=== PATIENT | female | born 1995 ===

== ENCOUNTER 2020-01-14 14:28 | Emergency (ER) | payer MEDICAID, SELFPAY ==
[2020-01-14 16:46] VITALS: BP 142/75; PULSE 89; RESP 16; TEMP 36.7; O2SAT 100; BMI 59.8
--- NOTE | 2020-01-14 18:36 | PC.NURSE ---
2 attempts for iv access teddy jensen rn in to attempt access.
[2020-01-14 19:00] LABS: Basophils Percent Auto 0.3 % (0-2); Imm Gran Abs Auto 0.02 X10*3/uL (0.00-0.03); Imm Gran Pct Auto 0.3 % (0.0-0.4); Red Cell Distribution Width 15.3 % (11.0-16.0); SCAN SMEAR FLAG 1
[2020-01-14 19:02] LABS: Eosinophils Absolute Auto 0.1 X10*3/uL (0.0-0.4); Eosinophils Percent Auto 0.8 % (0-4); Hematocrit 37.7 % (37-47); Lymphocytes Absolute Auto 1.9 X10*3/uL (1.2-4.9); Lymphocytes Percent Auto 26.1 % (20-40); Mean Corpuscular HGB Conc 31.8 g/dl (31.0-35.0); Mean Corpuscular Hemoglobin 26.7 pg (27.0-33.0); Monocytes Absolute Auto 0.8 X10*3/uL (0.1-1.2); Monocytes Percent Auto 10.5 % (2-11); Neutrophils Absolute Auto 4.5 X10*3/uL (2.0-8.3); Platelet Count 131 X10*3/uL (160-400); Red Blood Count 4.49 X10*6/uL (4.20-5.50); White Blood Count 7.2 X10*3/uL (4.8-10.8)
[2020-01-14 19:08] LABS: PLT ABN DIST 1
[2020-01-14 19:09] LABS: MANUAL DIFF FLAG NO
[2020-01-14] MEDS: 0.9 % Sodium Chloride 1,000 ML 999 ML IVCONT (19:28)
[2020-01-14] MEDS: ondansetron HCL 4 MG/2 ML VIAL IVPUSH (19:29)
--- NOTE | 2020-01-14 19:30 | PC.NURSE ---
MEDICATED PER MAY . PT RESTING IN BED NO SIGN OF DISTRESS.
[2020-01-14 19:32] VITALS: BP 142/75; PULSE 89; RESP 16; TEMP 36.7; O2SAT 100
--- NOTE | 2020-01-14 19:41 | ED_ITS ---
HPI - Female Genitourinary General Chief complaint: Urogenital-Female Stated complaint: Vaginal bleeding and discomfort Time Seen by Provider: 01/14/20 17:58 Source: patient Mode of arrival: ambulatory Limitations: language barrier ( Kiswahili) History of Present Illness HPI Narrative: 24-year-old female presents with right lower abdominal pain, 3 days of vaginal bleeding, and tested positive for yesterday. Her last normal menstrual cycle was November 26, and she stated that the pain started few weeks ago prior to her positive test. She does not describe any chest pain or pressure, palpitations, shortness of breath, abdominal distention, dysuria, risk for sexually transmitted infection, physical assault, sexual assault or trauma. MD elicited complaint: possible miscarriage Onset (ago): day(s) (3) Location of symptoms: RLQ Severity: moderate Female Urogenital Radiation: Non-Radiating Severity scale (1-10): 8 Quality of pain: cramping and sharp Consistency: intermittent Vaginal discharge: none Vaginal bleeding: moderate Relieving factors: none Associated symptoms: denies other symptoms Treatment prior to arrival: none Sexual activity: Yes Patient : Yes Possible : at home test positive Date of Last Menstrual Period: 11/27/19 Related Data : 1 Para: 0 Total number of abortions (spontaneous and elective): 0 Allergies Allergy/AdvReac Type Severity Reaction Status Date / Time No Known Allergies Allergy Verified 01/14/20 17:58 Review of Systems Review of Systems: Constitutional: No Fever, No Chills ENT/Mouth: No sore throat, No Rhinorrhea Eyes: No Eye Pain, No Redness Cardiovascular: No Chest Pain, No SOB Respiratory: No Cough, No Sputum, No Wheezing Gastrointestinal: positive Nausea, No Vomiting, No Diarrhea, positive abdominal pain, Genitourinary: Positive , positive irregular bleeding, No Dysuria, No Urinary Frequency, positive pelvic pain Musculoskeletal: No Myalgias Skin: No rash Neuro: No Weakness, No Headache Psych: No Anxiety/Panic, No Depression Heme/Lymph: No bruising, No Lymphadenopathy Endocrine: No Polyuria, No Polydipsia Yes all other systems are reviewed and are negative PMFSH Past Medical History Medical History Cyst (solitary) of breast : 1 Para: 0 Total number of abortions (spontaneous and elective): 0 Date of Last Menstrual Period: 11/27/19 Social History Social History Alcohol intake: unknown Smoking Status: Unknown if ever smoked Use of substances other than those prescribed or required for medical reasons: Unknown Advance Directives: No Advance Directives Information Provided: Yes Physical Exam Vital Signs: Vital Signs: Vital Signs Temp Pulse Resp BP Pulse Ox 01/15/20 00:00 103 H 15 111/78 96 01/14/20 20:43 108 H 18 128/78 100 01/14/20 19:32 98.0 F 89 16 142/75 H 100 01/14/20 16:46 98.0 F 89 16 142/75 H 100 Body Mass Index 59.8 Appearance: Alert. Oriented X3. No acute distress. Head: Normal external exam. Normocephalic. Atraumatic. No Gonsalez signs noted. No raccoon eyes noted Eyes: PERRLA. EOMI. Conjunctiva and sclera normal. Eyelids normal. ENT: TM's Normal. Pharynx normal. Uvula midline. Moist mucous membranes. No trismus noted. No drooling noted. No muffled voice noted. Neck: Normal inspection. Neck supple. No adenopathy. Thyroid Normal. No meningeal signs. No neck mass noted. CVS: Normal heart rate and rhythm. Heart sound normal. No murmurs noted. Pulses normal throughout. Respiratory: No respiratory distress. Painless inspiration. Breath sounds normal. No wheezes/rales/rhonchi noted. Chest nontender. No accessory muscle usage noted or decreased air movement noted. Abdomen: Soft and nontender. Bowel sounds normal in all 4 quadrants. No distention noted. No organomegaly noted. No visible injury noted. Back: No CVA tenderness. Full range of motion noted. Skin: Skin warm and dry. Normal skin color. Normal skin turgor. No rashes/lesions/lacerations noted. Extremities: No lower extremity edema. Extremities exhibit normal range of motion. Extremities nontender. Neuro: No motor deficit. No sensory deficit. Reflexes normal. Course Course Course Narrative: Patient presents with positive test, adnexal pain, and vaginal bleeding. High suspicion for ectopic . Detailed discussion with patient regarding plan, rn international utilized for all correspondence. RN updated this REGISTERED NURSE POST PARTUM that labs have been unable to be obtained. Reevaluation(s) Reevaluation #1: labs are unobtainable. Multiple attempts with RN and this REGISTERED NURSE POST PARTUM with ultrasound guide. Time: 20:55 Reevaluation #2: lab called for urine test. after multiple attempts, and detailed discussion with patient regarding gravity of her situation, patient agrees to allow blood draw. This REGISTERED NURSE POST PARTUM placed 22 gauge to the left AC and was able to obtain type and screen On 2nd attempt. Time: 21:36 Reevaluation #3: Dr Butler bedside. Time: 00:00 Additional Reevaluation(s): at 1:[address] Butler assessment has been completed. Plan is for patient to use methotrexate. Consent in place. Discharge instructions will be transcribed to Kiswahili. Patient will be discharged home with close follow-up. Patient verbalized understanding of and agrees to plan of care to discharge home. rn international utilized for all correspondence. Google translate utilized for discharge instructions. Consultations Consultation #1: Dr. Butler Time: 00:52 MDM - Female Genitourinary MDM Narrative Medical decision making narrative: ectopic , molar , adnexal mass, ovarian cyst, Differential Diagnosis Differential diagnosis: Likely urinary tract infection, cervicitis, ruptured ovarian cyst and dysmenorrhea Medical Records Attestation: I reviewed the patient's medical records. Lab Data Attestation: I reviewed the patient's lab results. Result diagrams: 01/14/20 18:45 01/14/20 22:17 Labs: Lab Results 01/14/20 01/14/20 01/14/20 Range/Units 18:45 18:45 18:45 WBC 7.2 (4.8-10.8) X10*3/uL RBC 4.49 (4.20-5.50) X10*6/uL Hgb 12.0 (12.0-16.0) g/dl Hct 37.7 (37-47) % MCV 84.0 (80-98) fL MCH 26.7 L (27.0-33.0) pg MCHC 31.8 (31.0-35.0) g/dl RDW 15.3 (11.0-16.0) % Plt Count 131 L (160-400) X10*3/uL MPV Not Reportable Immature Gran % (Auto) 0.3 (0.0-0.4) % Neut % (Auto) 62.0 (45-73) % Lymph % (Auto) 26.1 (20-40) % [place] % (Auto) 10.5 (2-11) % Eos % (Auto) 0.8 (0-4) % Baso % (Auto) 0.3 (0-2) % Lymph # (Auto) 1.9 (1.2-4.9) X10*3/uL [place] # (Auto) 0.8 (0.1-1.2) X10*3/uL Eos # (Auto) 0.1 (0.0-0.4) X10*3/uL Baso # (Auto) 0.0 (0.0-0.2) X10*3/uL Abs Immat Gran (auto) 0.02 (0.00-0.03) X10*3/uL Absolute Neuts (auto) 4.5 (2.0-8.3) X10*3/uL Absolute Nucleated RBC 0.000 (0.0-0.012) X10*3/uL Nucleated RBC % (auto) 0.0 (0.0-0.2) /100WBC Sodium Cancelled Potassium Cancelled Chloride Cancelled Carbon Dioxide Cancelled Anion Gap Cancelled BUN Cancelled Creatinine Cancelled Estim Creat Clear Calc Cancelled Estimated GFR Cancelled Random Glucose Cancelled Calcium Cancelled Total Bilirubin Cancelled AST Cancelled ALT Cancelled Alkaline Phosphatase Cancelled Total Protein Cancelled Albumin Cancelled Beta HCG, Quant Cancelled Urine Color Urine Appearance Urine pH (5.0-8.0) Ur Specific [place] (1.005-1.025) Urine Protein (NEG-TRACE) MG/DL Urine Glucose (UA) (NEG) MG/DL Urine Ketones (NEG) MG/DL Urine Blood (NEG) Urine Nitrite (NEG) Ur Leukocyte Esterase (NEG) Urine RBC (0) /HPF Urine WBC (0-4) /HPF Ur Squamous Epith Cells /LPF Urine Bacteria /LPF Urine Test (NEGATIVE) Blood Type B Positive Antibody Screen 01/14/20 01/14/20 01/14/20 Range/Units 20:16 22:17 22:17 WBC (4.8-10.8) X10*3/uL RBC (4.20-5.50) X10*6/uL Hgb (12.0-16.0) g/dl Hct (37-47) % MCV (80-98) fL MCH (27.0-33.0) pg MCHC (31.0-35.0) g/dl RDW (11.0-16.0) % Plt Count (160-400) X10*3/uL MPV Immature Gran % (Auto) (0.0-0.4) % Neut % (Auto) (45-73) % Lymph % (Auto) (20-40) % [place] % (Auto) (2-11) % Eos % (Auto) (0-4) % Baso % (Auto) (0-2) % Lymph # (Auto) (1.2-4.9) X10*3/uL [place] # (Auto) (0.1-1.2) X10*3/uL Eos # (Auto) (0.0-0.4) X10*3/uL Baso # (Auto) (0.0-0.2) X10*3/uL Abs Immat Gran (auto) (0.00-0.03) X10*3/uL Absolute Neuts (auto) (2.0-8.3) X10*3/uL Absolute Nucleated RBC (0.0-0.012) X10*3/uL Nucleated RBC % (auto) (0.0-0.2) /100WBC Sodium 138 Potassium 3.8 Chloride 105 Carbon Dioxide 22 Anion Gap 15 BUN 10 Creatinine 0.75 Estim Creat Clear Calc 189.2 Estimated GFR > 60 Random Glucose 89 Calcium 10.1 Total Bilirubin 0.4 AST 22 ALT 17 Alkaline Phosphatase 82 Total Protein 8.5 H Albumin 4.9 Beta HCG, Quant 1262 Urine Color YELLOW Urine Appearance HAZY Urine pH 6.0 (5.0-8.0) Ur Specific [place] >= 1.030 H (1.005-1.025) Urine Protein NEG (NEG-TRACE) MG/DL Urine Glucose (UA) NEG (NEG) MG/DL Urine Ketones 5 (NEG) MG/DL Urine Blood 3+ H (NEG) Urine Nitrite NEG (NEG) Ur Leukocyte Esterase NEG (NEG) Urine RBC 5-9 H (0) /HPF Urine WBC 0 (0-4) /HPF Ur Squamous Epith Cells 1+ /LPF Urine Bacteria 1+ /LPF Urine Test POSITIVE H (NEGATIVE) Blood Type B Positive Antibody Screen NEGATIVE Imaging Data OB ultrasound: Attestation: I personally reviewed and interpreted this imaging study as follows: Radiologist's impression: TECHNIQUE: Transabdominal and endovaginal examination of the pelvis. FINDINGS: The uterus is retroverted measuring 9.6 x 4.7 x 5.2 cm. Endometrial thickness is 1.6 cm. Decidual reaction is present. However, there is no recognizable intrauterine gestational sac at this time. The left ovary measures 3.6 x 2.0 x 1.9 cm and contains a small corpus luteum cyst. The borders of the right ovary are somewhat ill-defined. Measurements are 2.8 x 3.5 x 2.1 cm. A small volume of free fluid is present in the right adnexal region surrounding a small ill-defined hypervascular solid adnexal mass. This measures 1.5 x 1.2 x 1.7 cm. IMPRESSION: 1. Empty uterus. Decidual reaction only. 2. Extraovarian right adnexal mass as described. Therefore, the findings are suspicious for an ectopic , assuming accurate dates. This critical result was discussed with Susanna CEVALLOS at 10:25 PM on January 13 and it was ascertained that the content and urgency of the report was understood at the time of direct communication. Critical Care Time Critical Care Time Critical Care Time: Yes Total Critical Care Time: 65 Attestation: I have personally provided critical care time exclusive of time spent on separately billable procedures. Time includes review of laboratory data, radiology results, discussion with consultants, and monitoring for potential decompensation. Interventions were performed as documented. Discharge Plan Discharge Clinical Impression: Ectopic Qualifiers: Location of ectopic : tubal Intrauterine status: without intrauterine Laterality: right Qualified Code(s): O00.101 - Right tubal without intrauterine Patient Disposition: Home, Self-Care Instructions: Methotrexate (By injection), Ectopic (DC) Additional Instructions: se le evalu? para el embarazo, el sangrado vaginal y el dolor abdominal derecho. La ecograf?a abdominal indica james masa adnexal derecha consistente con un posible embarazo ect?joaquin. Zerbe le evalu? y recibi? metotrexato. Es importante que siga estas instrucciones. 1. Es normal sentir algo de dolor en el lado del embarazo ect?joaquin thai 3-7 d?as. Si el dolor es intenso, debe llamar al Dr. Butler. 2. Usted debe evitar todas las relaciones sexuales hasta que sea aprobado por trevino m?dico. 3. Debe evitar la actividad extenuante. 4. Use anticonceptivos adecuados thai 2 ciclos menstruales despu?s de la finalizaci?n de la terapia. 5. No hay alcohol thai varios d?as despu?s de la inyecci?n. 6. No hay preparaciones vitam?nicos con ?cido f?david hasta la resoluci?n completa del embarazo ect?joaquin, cuando la prueba de embarazo es negativa. Del Muerto puede antagonizar los efectos del metotrexato. 7. Evite la exposici?n al elinor, utilice protector de la pantalla solar est? expuesto a la matthew solar. 8. El trabajo de laboratorio debe hacerse el d?a 4, el s?bado a medianoche, HCB,. El trabajo de laboratorio debe realizarse el d?a 7, junto con james melanie en OBGYN. trevino melanie es el mi?rcoles a las 7:00 a.m. Llame a la oficina al 9. Puede experimentar n?useas, indigesti?n, erupci?n cut?linette o llagas en la boca. Estos son los efectos secundarios normales de beto medicamento. 10. Usted puede tener enzimas hep?glenn elevadas y rola vez disminuci?n de la producci?n de m?dula ?sea de c?lulas sangu?neas y plaquetas. Ronda por elegir beto departamento de emergencias para la evaluaci?n. Por favor, kendra un seguimiento con el m?dico de atenci?n primaria seg?n sea necesario. Regrese al servicio de urgencias para cualquier s?ntoma nuevo, p reocupante o que empeore. you were evaluated for , vaginal bleeding, and right abdominal pain. Abdominal ultrasound indicates right adnexal mass consistent with possible ectopic . You were evaluated by Dr Butler, and received methotrexate. It is important that you follow these instructions. 1. It is normal to feel some pain on the side of the ectopic for 3-7 days. If the pain is severe you should call Dr Butler. 2. You should avoid all intercourse until approved by her physician. 3. You should avoid strenuous activity. 4. Use appropriate control for 2 menstrual cycles after completion of therapy. 5. No alcohol for several days after injection. 6. No vitamin preparations with folic acid until complete resolution of the ectopic , when test is negative. This may antagonize methotrexate effects. 7. Avoid sun exposure, use protective sun screen is exposed to sunlight. 8. Lab work needs to be done on day 4, Sunday at midnight, HCB,. Lab work needs to be done on day 7, along with an appointment at OBGYN. your appointment is on Sunday at 7:00 a.m.. Please call the office at [phone]. You may experience nausea, indigestion, a rash, or mouth sores. This is normal side effects of this medication. 10. You may have elevated liver enzymes and rarely decreased Bone marrow production of blood cells and platelets. Thank you for choosing this emergency department for evaluation. Please follow-up with primary care physician as needed. Return to the emergency department for any new, concerning, or worsening symptoms. Referrals: Jere Butler MD [Physician] - 2 days ( please call office for appointment on Sunday at 7:00 a.m..) Stand Alone Forms: Work/School Release Print Language: Kiswahili
--- NOTE | 2020-01-14 20:18 | US_ITS ---
EXAMINATION: ULTRASOUND OF THE PELVIS. CLINICAL INFORMATION: 24-year-old female with first trimester vaginal bleeding. Right adnexal pain. LMP 11/27/2019. Gestational age by dates 6 weeks 6 days with an NITHIN of 09/02/2020. Blood tests pending. COMPARISON: None TECHNIQUE: Transabdominal and endovaginal examination of the pelvis. FINDINGS: The uterus is retroverted measuring 9.6 x 4.7 x 5.2 cm. Endometrial thickness is 1.6 cm. Decidual reaction is present. However, there is no recognizable intrauterine gestational sac at this time. The left ovary measures 3.6 x 2.0 x 1.9 cm and contains a small corpus luteum cyst. The borders of the right ovary are somewhat ill-defined. Measurements are 2.8 x 3.5 x 2.1 cm. A small volume of free fluid is present in the right adnexal region surrounding a small ill-defined hypervascular solid adnexal mass. This measures 1.5 x 1.2 x 1.7 cm. IMPRESSION: 1. Empty uterus. Decidual reaction only. 2. Extraovarian right adnexal mass as described. Therefore, the findings are suspicious for an ectopic , assuming accurate dates. This critical result was discussed with Susanna CEVALLOS at 10:25 PM on January 13 and it was ascertained that the content and urgency of the report was understood at the time of direct communication.
[2020-01-14 20:23] LABS: Appearance Urine HAZY; Color Urine YELLOW; Glucose Urine UA NEG (NEG); Leukocyte Esterase Urine NEG (NEG); Nitrite Urine NEG (NEG); Specific Gravity - Urine >= 1.030 (1.005-1.025); Urine Blood 3+ (NEG); Urine Ketones 5 MG/DL (NEG); Urine Protein NEG (NEG-TRACE)
[2020-01-14 20:30] LABS: Bacteria Urine 1+ /LPF; Squamous Epithelial Cell Urine 1+ /LPF; WBC Urine 0 /HPF (0-4)
[2020-01-14 20:43] VITALS: BP 128/78; PULSE 108; RESP 18; O2SAT 100
[2020-01-14 21:57] LABS: UPreg QC Valid YES; Urine Pregnancy POSITIVE (NEGATIVE)
[2020-01-14 22:52] LABS: Alanine Aminotransferase 17 U/L (0-31); Albumin Level 4.9 g/dL (3.5-5.0); Alkaline Phosphatase 82 U/L (39-117); Anion Gap 15 (12-20); Aspartate Amino Transferase 22 U/L (5-31); Bilirubin Total 0.4 mg/dL (0.0-1.0); Blood Urea Nitrogen 10 mg/dL (9-16); Calcium 10.1 mg/dL (8.4-10.2); Carbon Dioxide 22 mmol/L (22-29); Chloride 105 mmol/L (96-108); Creatinine Clr Calc Pharmacy 189.2; Estimated Glomerular Filt Rate > 60; Glucose Random 89 mg/dL (60-115); Potassium 3.8 mmol/l (3.3-5.1); Sodium 138 mmol/L (135-145); Total Protein 8.5 g/dL (6.5-8.0)
[2020-01-14 22:58] LABS: HCG Quantitative 1262 mIU/mL
[2020-01-15] VITALS: BP 111/78; PULSE 103; RESP 15; O2SAT 96
--- NOTE | 2020-01-15 00:10 | PC.NURSE ---
Obgyn doctor conveyor belt installer here for consultation with patient. [employer] service contacted but phone line keeps going to voicemail.
--- NOTE | 2020-01-15 01:34 | ED.FEMALEGU ---
HPI - Female Genitourinary General Chief complaint: Urogenital-Female Stated complaint: Vaginal bleeding and discomfort Time Seen by Provider: 01/14/20 17:58 Source: patient Mode of arrival: ambulatory Limitations: language barrier ( Moldovan) History of Present Illness HPI Narrative: I was consulted regarding patient presented emergency room with right for quadrant pain. Pain is mind, associated with mild vaginal spotting, no heavy bleeding. Patient test today was positive, so she presents emergency. H and H within normal platelets 131 1000 AST ALT normal creatinine normal ultrasound showed no evidence of intrauterine gestational sac and a right adnexal solid mass measuring 1.7 x 1.5 cm. HCG = 1261. Severity: moderate Relieving factors: none Date of Last Menstrual Period: 11/27/19 Related Data : 1 Para: 0 Total number of abortions (spontaneous and elective): 0 Allergies Allergy/AdvReac Type Severity Reaction Status Date / Time No Known Allergies Allergy Verified 01/14/20 17:58 Review of Systems Review of Systems: Yes all other systems are reviewed and are negative Cardiovascular: Cardiovascular: Reports as per HPI, Reports no additional cardiovascular complaints, Denies chest pain, Denies chest pain with activity, Denies dyspnea and Denies dyspnea on exertion Respiratory: Respiratory: Reports as per HPI, Reports no additional respiratory complaints, Denies cough, Denies pain on inspiration, Denies pain with cough, Denies dyspnea, Denies dyspnea on exertion and Denies wheezing Gastrointestinal: Gastrointestinal: Reports as per HPI, Reports no additional gastrointestinal complaints, Denies abdominal pain, Denies change in bowel habits, Denies change in stool character, Denies early satiety, Denies dyspepsia, Denies heartburn, Denies nausea and Denies vomiting Genitourinary: Genitourinary: Reports as per HPI, Denies hematuria and Denies dysuria Allergic/Immunologic: Allergic/Immunologic: Denies wheezing PMFSH Past Medical History Medical History Cyst (solitary) of breast : 1 Para: 0 Total number of abortions (spontaneous and elective): 0 Date of Last Menstrual Period: 11/27/19 Social History Social History Alcohol intake: unknown Smoking Status: Unknown if ever smoked Use of substances other than those prescribed or required for medical reasons: Unknown Advance Directives: No Advance Directives Information Provided: Yes Physical Exam Vital Signs: Vital Signs: Vital Signs Temp Pulse Resp BP Pulse Ox 01/15/20 00:00 103 H 15 111/78 96 01/14/20 20:43 108 H 18 128/78 100 01/14/20 19:32 98.0 F 89 16 142/75 H 100 01/14/20 16:46 98.0 F 89 16 142/75 H 100 Body Mass Index 59.8 Const: General: cooperative, healthy appearing and comfortable Chest: Chest palpation & inspection: normal inspection of the chest and normal palpation of entire chest wall Breast/axilla inspection: normal inspection of the breasts and normal inspection of the axillae Breast/axilla palpation: normal palpation of the breasts, normal palpation of the axillae and no axillary lymphadenopathy Resp: Effort & Inspection: normal respiratory effort Auscultation: clear to auscultation bilaterally Percussion: percussion normal Cardio: Palpation: normal PMI Rate: regular rate Rhythm: regular rhythm Heart sounds: no murmurs and no rubs Peripheral pulses: Peripheral pulses 2+ throughout GI: Inspection: Yes normal to inspection Palpation (GI): Soft to palpation, nontender, no guarding, not rigid and No hepatosplenomegaly present Percussion: Yes normal to percussion Auscultation: normal bowel sounds Rectal Exam - Female: deferred : Other: deferred Amniotic Fluid: other Course Consultations Consultation #1: Discussed the patient the clinical findings including the following hCG 1261 with a ultrasound showed no evidence of intrauterine and a right adnexal solid mass measuring 1.5 x 1.7 cm suspicious of ectopic . Discussed with the patient the possibilities of right ectopic versus early undetected by ultrasound given the low level of hCG ( at this HCG level an intrauterine gestational sac might not be seen). Options of treatment discussed patient include the following methotrexate treatment vs. expectant management for treatment of her suspected ectopic ; The risks and benefits of each approach were discussed with the patient, in case of methotrexate treatment success rate and failure rate were discussed with the patient, also explained to the patient that there is a risk of exposure of an undiagnosed early intrauterine to possible teratogenicity and or miscarriage and a commitment for termination of the , also discussed with patient risk of ruptured ectopic. option 2, expectant management, was discussed with the patient, with the risk of delaying the diagnosis and treatment of ectopic increasing the risk possible rupture and decreasing the success rate of methotrexate; The advantage being increasing the chance of diagnosis early since hCG level will increase, will repeat ultrasound to possibly detect intrauterine . The Patient desires methotrexate treatment and understand that there is a risk of an undiagnosed early possible exposure of methotrexate teratogenicity and miscarriage the patient is committing to terminating the in this case. Common side effects of the medication were discussed with the patient, including but not limited to, skin rash, sensitivity to the sun, indigestion, nausea, sore mouth, Less common side effects (occuring in less than 2% of patients) were also discussed, a drop in blood cell counts or temporary elevation in liver enzymes. All questions were answered and recommended follow up reviewed. Plan methotrexate 50 mg/m2 BSA x 1.68 m2 BSA = 84 mg methotrexate IM x 1. Patient information sheet and lab orders were given to the patient. s/s of ruptured ectopic d/w she is to call or go to the ER if abd pain occurs. 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 All questions were answered pt verbalized understanding Instructions given to the pt to call if pain, bleeding, n/v occur , no intercourse &/or strenuous activity, no PNV to be taken , no sun exposure. All questions answered, the patient verbalized understanding and signed the consent. MDM - Female Genitourinary Lab Data Result diagrams: 01/14/20 18:45 01/14/20 22:17 Labs: Lab Results 01/14/20 01/14/20 01/14/20 Range/Units 18:45 18:45 18:45 WBC 7.2 (4.8-10.8) X10*3/uL RBC 4.49 (4.20-5.50) X10*6/uL Hgb 12.0 (12.0-16.0) g/dl Hct 37.7 (37-47) % MCV 84.0 (80-98) fL MCH 26.7 L (27.0-33.0) pg MCHC 31.8 (31.0-35.0) g/dl RDW 15.3 (11.0-16.0) % Plt Count 131 L (160-400) X10*3/uL MPV Not Reportable Immature Gran % (Auto) 0.3 (0.0-0.4) % Neut % (Auto) 62.0 (45-73) % Lymph % (Auto) 26.1 (20-40) % [place] % (Auto) 10.5 (2-11) % Eos % (Auto) 0.8 (0-4) % Baso % (Auto) 0.3 (0-2) % Lymph # (Auto) 1.9 (1.2-4.9) X10*3/uL [place] # (Auto) 0.8 (0.1-1.2) X10*3/uL Eos # (Auto) 0.1 (0.0-0.4) X10*3/uL Baso # (Auto) 0.0 (0.0-0.2) X10*3/uL Abs Immat Gran (auto) 0.02 (0.00-0.03) X10*3/uL Absolute Neuts (auto) 4.5 (2.0-8.3) X10*3/uL Absolute Nucleated RBC 0.000 (0.0-0.012) X10*3/uL Nucleated RBC % (auto) 0.0 (0.0-0.2) /100WBC Sodium Cancelled Potassium Cancelled Chloride Cancelled Carbon Dioxide Cancelled Anion Gap Cancelled BUN Cancelled Creatinine Cancelled Estim Creat Clear Calc Cancelled Estimated GFR Cancelled Random Glucose Cancelled Calcium Cancelled Total Bilirubin Cancelled AST Cancelled ALT Cancelled Alkaline Phosphatase Cancelled Total Protein Cancelled Albumin Cancelled Beta HCG, Quant Cancelled Urine Color Urine Appearance Urine pH (5.0-8.0) Ur Specific [place] (1.005-1.025) Urine Protein (NEG-TRACE) MG/DL Urine Glucose (UA) (NEG) MG/DL Urine Ketones (NEG) MG/DL Urine Blood (NEG) Urine Nitrite (NEG) Ur Leukocyte Esterase (NEG) Urine RBC (0) /HPF Urine WBC (0-4) /HPF Ur Squamous Epith Cells /LPF Urine Bacteria /LPF Urine Test (NEGATIVE) Blood Type B Positive Antibody Screen 01/14/20 01/14/20 01/14/20 Range/Units 20:16 22:17 22:17 WBC (4.8-10.8) X10*3/uL RBC (4.20-5.50) X10*6/uL Hgb (12.0-16.0) g/dl Hct (37-47) % MCV (80-98) fL MCH (27.0-33.0) pg MCHC (31.0-35.0) g/dl RDW (11.0-16.0) % Plt Count (160-400) X10*3/uL MPV Immature Gran % (Auto) (0.0-0.4) % Neut % (Auto) (45-73) % Lymph % (Auto) (20-40) % [place] % (Auto) (2-11) % Eos % (Auto) (0-4) % Baso % (Auto) (0-2) % Lymph # (Auto) (1.2-4.9) X10*3/uL [place] # (Auto) (0.1-1.2) X10*3/uL Eos # (Auto) (0.0-0.4) X10*3/uL Baso # (Auto) (0.0-0.2) X10*3/uL Abs Immat Gran (auto) (0.00-0.03) X10*3/uL Absolute Neuts (auto) (2.0-8.3) X10*3/uL Absolute Nucleated RBC (0.0-0.012) X10*3/uL Nucleated RBC % (auto) (0.0-0.2) /100WBC Sodium 138 Potassium 3.8 Chloride 105 Carbon Dioxide 22 Anion Gap 15 BUN 10 Creatinine 0.75 Estim Creat Clear Calc 189.2 Estimated GFR > 60 Random Glucose 89 Calcium 10.1 Total Bilirubin 0.4 AST 22 ALT 17 Alkaline Phosphatase 82 Total Protein 8.5 H Albumin 4.9 Beta HCG, Quant 1262 Urine Color YELLOW Urine Appearance HAZY Urine pH 6.0 (5.0-8.0) Ur Specific [place] >= 1.030 H (1.005-1.025) Urine Protein NEG (NEG-TRACE) MG/DL Urine Glucose (UA) NEG (NEG) MG/DL Urine Ketones 5 (NEG) MG/DL Urine Blood 3+ H (NEG) Urine Nitrite NEG (NEG) Ur Leukocyte Esterase NEG (NEG) Urine RBC 5-9 H (0) /HPF Urine WBC 0 (0-4) /HPF Ur Squamous Epith Cells 1+ /LPF Urine Bacteria 1+ /LPF Urine Test POSITIVE H (NEGATIVE) Blood Type B Positive Antibody Screen NEGATIVE Discharge Plan Discharge Clinical Impression: Ectopic Qualifiers: Location of ectopic : tubal Intrauterine status: without intrauterine Laterality: right Qualified Code(s): O00.101 - Right tubal without intrauterine Patient Disposition: Home, Self-Care Instructions: Methotrexate (By injection), Ectopic (DC) Additional Instructions: se le evalu? para el embarazo, el sangrado vaginal y el dolor abdominal derecho. La ecograf?a abdominal indica james masa adnexal derecha consistente con un posible embarazo ect?joaquin. Luke le evalu? y recibi? metotrexato. Es importante que siga estas instrucciones. 1. Es normal sentir algo de dolor en el lado del embarazo ect?joaquin thai 3-7 d?as. Si el dolor es intenso, debe llamar al Dr. Butler. 2. Usted debe evitar todas las relaciones sexuales hasta que sea aprobado por trevino m?dico. 3. Debe evitar la actividad extenuante. 4. Use anticonceptivos adecuados thai 2 ciclos menstruales despu?s de la finalizaci?n de la terapia. 5. No hay alcohol thai varios d?as despu?s de la inyecci?n. 6. No hay preparaciones vitam?nicos con ?cido f?david hasta la resoluci?n completa del embarazo ect?joaquin, cuando la prueba de embarazo es negativa. [place] puede antagonizar los efectos del metotrexato. 7. Evite la exposici?n al elinor, utilice protector de la pantalla solar est? expuesto a la matthew solar. 8. El trabajo de laboratorio debe hacerse el d?a 4, el s?bado a medianoche, H[employer],. El trabajo de laboratorio debe realizarse el d?a 7, junto con james melanie en [facility]. trevino melanie es el mi?rcoles a las 7:00 a.m. Llame a la oficina al 9. Puede experimentar n?useas, indigesti?n, erupci?n cut?linette o llagas en la boca. Estos son los efectos secundarios normales de beto medicamento. 10. Usted puede tener enzimas hep?glenn elevadas y rola vez disminuci?n de la producci?n de m?dula ?sea de c?lulas sangu?neas y plaquetas. Ronda por elegir beto departamento de emergencias para la evaluaci?n. Por favor, kendra un seguimiento con el m?dico de atenci?n primaria seg?n sea necesario. Regrese al servicio de urgencias para cualquier s?ntoma nuevo, preocupante o que empeore. you were evaluated for , vaginal bleeding, and right abdominal pain. Abdominal ultrasound indicates right adnexal mass consistent with possible ectopic . You were evaluated by Dr Butler, and received methotrexate. It is important that you follow these instructions. 1. It is normal to feel some pain on the side of the ectopic for 3-7 days. If the pain is severe you should call Dr Bulter. 2. You should avoid all intercourse until approved by her physician. 3. You should avoid strenuous activity. 4. Use appropriate control for 2 menstrual cycles after completion of therapy. 5. No alcohol for several days after injection. 6. No vitamin preparations with folic acid until complete resolution of the ectopic , when test is negative. This may antagonize methotrexate effects. 7. Avoid sun exposure, use protective sun screen is exposed to sunlight. 8. Lab work needs to be done on day , Sunday at midnight, [facility],. Lab work needs to be done on day 7, along with an appointment at [facility]. your appointment is on Sunday at 7:00 a.m.. Please call the office at 9. You may experience nausea, indigestion, a rash, or mouth sores. This is normal side effects of this medication. 10. You may have elevated liver enzymes and rarely decreased Bone marrow production of blood cells and platelets. Thank you for choosing this emergency department for evaluation. Please follow-up with primary care physician as needed. Return to the emergency department for any new, concerning, or worsening symptoms. Referrals: Jere Butler MD [Physician] - 2 days ( please call office for appointment on Sunday at 7:00 a.m..) Stand Alone Forms: Work/School Release Print Language: Moldovan
[2020-01-15 02:00] VITALS: BP 109/84; PULSE 102; RESP 15; TEMP 36.7; O2SAT 100
[2020-01-15 02:49] VITALS: BMI 27.8
--- NOTE | 2020-01-15 02:59 | PC.NURSE ---
PATIENT IS AWAITING MEDICATION TO BE DELIVERED BY PHARMACY. MEDICATION DOSE NEEDED TO BE CLARIFIED WITH MD AND PHARMACY MADE AWARE . PATIENT GIVEN SOMETHING TO EAT WHILE SHE WAITS FOR MEDICATION.
--- NOTE | 2020-01-15 04:23 | PC.NURSE ---
Per [employer] supervisor she has to call the pharmacy staff in so that the medication can be mixed. Patient is becoming restless and wants to leave and wants to know how long this is going to take. I informed patient with the help of clinical staff rn that we had to wait for medication to be mixed by pharmacy staff and that they needed to be called in. Phone call received by Dr. Butler who was informed of the situation. Dr. Butler wants the patient to stay in order to receive the medication and then she would be able to be discharged home. Patient was informed of the request of the
[2020-01-15 04:28] VITALS: BP 108/68; PULSE 98; RESP 16; O2SAT 100
[2020-01-15 06:00] VITALS: BP 101/68; PULSE 98; RESP 14; O2SAT 100
[2020-01-15] MEDS: metHOTREXate sodium 125 MG/5 ML SYRINGE 93 MG IM (06:32)
--- NOTE | 2020-01-15 06:37 | PC.NURSE ---
PATIENT MEDICATED PER EMAR NOTED..
[2020-01-15 06:38] VITALS: BP 120/68; PULSE 112; RESP 18; O2SAT 100
[2020-01-15 07:04] VITALS: BP 111/80; PULSE 99; RESP 16; TEMP 36.6; O2SAT 100
== END 2020-01-15 07:24 | disposition home or self-care (01) ==
PROVIDERS: Nurse Practitioner Family; Emergency Provider Emergency Medicine
DX: O00.101 Right tubal pregnancy without intrauterine pregnancy (principal); Z3A.01 Less than 8 weeks gestation of pregnancy
CPT/HCPCS: 36415; 76801; 76817; 80053; 81001; 81025; 84702; 85025; 86850; 86900; 86901; 96361; 96372; 96374; 99284; J2405

== ENCOUNTER 2020-01-18 00:01 | Emergency (ER) | payer MEDICAID, SELFPAY ==
--- NOTE | 2020-01-18 00:10 | ED.GENADULT ---
HPI - General Adult General Stated complaint: lab work Time Seen by Provider: 01/18/20 00:05 Source: patient Mode of arrival: ambulatory Limitations: no limitations History of Present Illness HPI narrative: patient presents for repeat lab work. She was seen on 01/14/2020 and diagnosed with an ectopic , required methotrexate. She does not describe any further symptoms. Onset (ago): day(s) Treatments prior to arrival: other ( Methotrexate for ectopic on 01/14/2020) Related Data Home Medications Medication Instructions Recorded Confirmed Unobtainable 01/15/20 01/15/20 Allergies Allergy/AdvReac Type Severity Reaction Status Date / Time No Known Allergies Allergy Verified 01/14/20 17:58 Review of Systems Review of Systems: Constitutional: No Weight loss, No Fever, No Chills, No Night Sweats, No Fatigue, No Malaise ENT/Mouth: No Hearing loss, No Ear Pain, No Nasal Congestion, No Sinus Pain, No Hoarseness, No sore throat, No Rhinorrhea, No Swallowing Difficulty Eyes: No Eye Pain, No Swelling, No Redness, No Foreign Body, No Discharge, No Vision Changes Cardiovascular: No Chest Pain, No SOB, No Dyspnea on Exertion, No Orthopnea, No Edema, No Palpitations Respiratory: No Cough, No Sputum, No Wheezing, No Smoke Exposure, No Dyspnea Gastrointestinal: No Nausea, No Vomiting, No Diarrhea, No Constipation, No abdominal Pain, No Hematochezia, No Melena Genitourinary: no irregular bleeding, No Dysuria, No Urinary Frequency, No Hematuria, No Urinary Incontinence, No Urgency, No Flank Pain, No Urinary Flow Changes, No Hesitancy Musculoskeletal: No joint pain, No Myalgias, No Joint Swelling Skin: No Skin Lesions, No rash Neuro: No Weakness, No Numbness, No Paresthesias, No Loss of Consciousness, No Dizziness, No Headache Psych: No Anxiety/Panic, No Depression, No SI/HI/AH/VH, No Social Issues Heme/Lymph: No Bruising, No Bleeding,No Lymphadenopathy Endocrine: No Polyuria, No Polydipsia, No Temperature Intolerance [facility] Past Medical History Attestation statement: The following information was validated with the patient. Medical History Cyst (solitary) of breast Social History Social History Alcohol intake: unknown Smoking Status: Unknown if ever smoked Advance Directives: No Advance Directives Information Provided: No Physical Exam Vital Signs: Appearance: Alert. Oriented X3. No acute distress. Eyes: Pupils equal, round and reactive to light. ENT: Pharynx normal. Neck: Normal inspection. Neck supple. CVS: Normal heart rate and rhythm. Pulses normal. Respiratory: No respiratory distress. Breath sounds normal. Abdomen: Soft and nontender. Skin: Skin warm and dry. Normal skin color. Normal skin turgor. Extremities: No lower extremity edema. Neuro: No motor deficit. No sensory deficit. Course Course Course Narrative: plan of care is to repeat hCG. She has significant follow-up with Dr. Butler. patient will be discharged home prior to lab return. Patient verbalized understanding of and agrees to plan of care to discharge home. Medical Decision Making MDM Narrative Medical decision making narrative: Repeat hCG level for ectopic with methotrexate Medical Records Medical records reviewed: Yes I reviewed the patient's medical records. Lab Data Lab results reviewed: Yes I reviewed the patient's lab results. Discharge Plan Discharge Clinical Impression: Ectopic Qualifiers: Location of ectopic : tubal Intrauterine status: without intrauterine Laterality: right Qualified Code(s): O00.101 - Right tubal without intrauterine Patient Disposition: Home, Self-Care Instructions: Methotrexate (By injection), Ectopic (DC) Additional Instructions: please continue to follow-up with Dr Butler. Thank you for choosing this emergency department for evaluation. Please follow-up with primary care physician as needed. Return to the emergency department for any new, concerning, or worsening symptoms. Prescriptions: No Action Unobtainable RF: 0
[2020-01-18 00:39] VITALS: BMI 26.6
[2020-01-18 01:05] LABS: HCG Quantitative 2165 mIU/mL
== END 2020-01-18 00:44 | disposition home or self-care (01) ==
PROVIDERS: Nurse Practitioner Family; Emergency Provider Emergency Medicine Emergency Medical Services
DX: O00.101 Right tubal pregnancy without intrauterine pregnancy (principal); Z79.899 Other long term (current) drug therapy
CPT/HCPCS: 84702; 99283

== ENCOUNTER 2020-01-21 09:02 | Outpatient (REF) | payer MEDICAID, SELFPAY ==
[2020-01-21 11:08] LABS: HCG Quantitative 2339 mIU/mL
--- NOTE | 2020-01-21 11:37 | US_ITS ---
EXAMINATION: ULTRASOUND OB LIMITED. CLINICAL INFORMATION: Ectopic with no IUP. Rising HCG measuring 2339. COMPARISON: Ultrasound OB 01/14/2020. TECHNIQUE: Transabdominal and transvaginal ultrasound of the pelvis is performed. FINDINGS: The uterus is retroverted as noted before. No intrauterine seen. There is thickened endometrium measuring 2.2 cm which is also hypervascular. Patient states active bleeding. There is a mass in the right adnexa measuring 1.9 x 1.3 x 1.4 cm. Previously this mass measured 1.5 x 1.2 x 1.7 cm. There is minimal free fluid adjacent to the mass. US/US OB transvaginal IMPRESSION: Empty uterus. Right external adnexal mass measuring 1.9 x 1.3 x 1.4 cm. Previously measured 1.5 x 1.2 x 1.7 cm. Question same size or slightly increased. Preliminary results were given to Dr. Butler over the phone at 12:22 PM
--- NOTE | 2020-01-21 11:37 | US_ITS ---
EXAMINATION: ULTRASOUND OB LIMITED. CLINICAL INFORMATION: Ectopic with no IUP. Rising HCG measuring 2339. COMPARISON: Ultrasound OB 01/14/2020. TECHNIQUE: Transabdominal and transvaginal ultrasound of the pelvis is performed. FINDINGS: The uterus is retroverted as noted before. No intrauterine seen. There is thickened endometrium measuring 2.2 cm which is also hypervascular. Patient states active bleeding. There is a mass in the right adnexa measuring 1.9 x 1.3 x 1.4 cm. Previously this mass measured 1.5 x 1.2 x 1.7 cm. There is minimal free fluid adjacent to the mass. US/US OB limited IMPRESSION: Empty uterus. Right external adnexal mass measuring 1.9 x 1.3 x 1.4 cm. Previously measured 1.5 x 1.2 x 1.7 cm. Question same size or slightly increased. Preliminary results were given to Dr. Butler over the phone at 12:22 PM
[2020-01-21 13:24] LABS: Hematocrit 39.8 % (37-47); Hemoglobin 12.7 g/dl (12.0-16.0); Mean Corpuscular HGB Conc 31.9 g/dl (31.0-35.0); Mean Corpuscular Volume 84.5 fL (80-98); Mean Platelet Volume 13.8 fL (9.4-12.3); Platelet Count 127 X10*3/uL (160-400); Red Blood Count 4.71 X10*6/uL (4.20-5.50); Red Cell Distribution Width 15.2 % (11.0-16.0); White Blood Count 4.4 X10*3/uL (4.8-10.8)
[2020-01-21 13:41] LABS: Alanine Aminotransferase 19 U/L (0-31); Aspartate Amino Transferase 20 U/L (5-31); Estimated Glomerular Filt Rate > 60
== END 2020-01-21 09:03 | disposition home or self-care (01) ==
LOC: HO.LAB 09:02
PROVIDERS: Visit Provider Obstetrics & Gynecology
DX: O00.90 Unspecified ectopic pregnancy without intrauterine pregnancy (principal)
CPT/HCPCS: 36415; 76815; 76817; 82565; 84450; 84460; 84702; 85027; 86900; 86901; 99212

== ENCOUNTER 2020-01-26 10:22 | Outpatient (REF) | payer MEDICAID, SELFPAY ==
[2020-01-26 13:39] LABS: HCG Quantitative 1275 mIU/mL
== END 2020-01-26 10:23 | disposition home or self-care (01) ==
LOC: HO.LAB 10:22
PROVIDERS: Visit Provider Obstetrics & Gynecology
DX: O00.90 Unspecified ectopic pregnancy without intrauterine pregnancy (principal)
CPT/HCPCS: 84702; 86900; 86901; 99212

== ENCOUNTER 2020-01-29 10:06 | Outpatient (REF) | payer MEDICAID, SELFPAY ==
[2020-01-29 12:23] LABS: HCG Quantitative 1000 mIU/mL
== END 2020-01-29 10:07 | disposition home or self-care (01) ==
LOC: HO.LAB 10:06
PROVIDERS: Visit Provider Obstetrics & Gynecology
DX: O00.90 Unspecified ectopic pregnancy without intrauterine pregnancy (principal); Z3A.00 Weeks of gestation of pregnancy not specified
CPT/HCPCS: 84702; 99212

== ENCOUNTER 2020-02-09 10:27 | Outpatient (REF) | payer MEDICAID, SELFPAY ==
[2020-02-09 13:23] LABS: HCG Quantitative 188 mIU/mL
== END 2020-02-09 10:28 | disposition home or self-care (01) ==
LOC: HO.LAB 10:27
PROVIDERS: Visit Provider Obstetrics & Gynecology
DX: O00.90 Unspecified ectopic pregnancy without intrauterine pregnancy (principal)
CPT/HCPCS: 84702

== ENCOUNTER 2020-03-01 10:29 | Outpatient (REF) | payer MEDICAID, SELFPAY ==
[2020-03-01 11:59] LABS: HCG Quantitative 47 mIU/mL
== END 2020-03-01 10:30 | disposition home or self-care (01) ==
LOC: HO.LAB 10:29
PROVIDERS: Visit Provider Obstetrics & Gynecology
DX: O00.90 Unspecified ectopic pregnancy without intrauterine pregnancy (principal); Z3A.00 Weeks of gestation of pregnancy not specified
CPT/HCPCS: 84702

== ENCOUNTER 2020-03-29 08:31 | Outpatient (REF) | payer MEDICAID, SELFPAY ==
[2020-03-29 10:51] LABS: HCG Quantitative < 2 mIU/mL
== END 2020-03-29 08:32 | disposition home or self-care (01) ==
LOC: HO.LAB 08:31
PROVIDERS: Visit Provider Obstetrics & Gynecology
DX: O00.90 Unspecified ectopic pregnancy without intrauterine pregnancy (principal)
CPT/HCPCS: 36415; 84702

== ENCOUNTER 2020-05-05 10:45 | Outpatient (REF) | payer MEDICAID, SELFPAY ==
[2020-05-06 09:05] LABS: BV Int Neg Control Negative (Negative); BV Int Pos Control Positive (Positive)
[2020-05-06 12:47] LABS: C. trachomatis RNA TMA NOT DETECTED (NOT DETECTED); N. gonorrhoeae RNA TMA NOT DETECTED (NOT DETECTED)
== END 2020-05-05 10:46 | disposition home or self-care (01) ==
LOC: HO.LAB 10:45
PROVIDERS: Visit Provider Obstetrics & Gynecology
DX: N76.0 Acute vaginitis (principal); Z11.8 Encounter for screening for other infectious and parasitic diseases; Z11.3 Encounter for screening for infections with a predominantly sexual mode of transmission; Z79.899 Other long term (current) drug therapy
CPT/HCPCS: 36415; 87480; 87491; 87510; 87591; 87660; 99212

== ENCOUNTER → 2020-05-20 12:11 | Outpatient (BNVA) | payer MEDICAID, SELFPAY | PROVIDERS: Visit Provider Obstetrics & Gynecology ==

== ENCOUNTER 2020-05-21 13:47 | Outpatient (REF) | payer MEDICAID, SELFPAY ==
--- NOTE | ~2020-05-21 | US_ITS ---
EXAMINATION: PELVIC ULTRASOUND CLINICAL INFORMATION: Pain COMPARISON: None TECHNIQUE: Transabdominal and transvaginal pelvic ultrasound was performed. Transvaginal exam was performed for better visualization of the uterus and ovaries. FINDINGS: The uterus is retroverted and measures 8.6 x 4 x 5.6 cm in dimension. No focal uterine lesion is seen. Endometrial thickness is normal measuring 1.4 cm. The cervix is normal. The ovaries are normal. The right ovary measures 3.5 x 1.8 x 1.7 cm. The left ovary measures 3.7 x 1.7 x 2.2 cm. There is no fluid in the pelvis. US/US transvaginal IMPRESSION: Normal pelvic ultrasound.
--- NOTE | ~2020-05-21 | US_ITS ---
EXAMINATION: PELVIC ULTRASOUND CLINICAL INFORMATION: Pain COMPARISON: None TECHNIQUE: Transabdominal and transvaginal pelvic ultrasound was performed. Transvaginal exam was performed for better visualization of the uterus and ovaries. FINDINGS: The uterus is retroverted and measures 8.6 x 4 x 5.6 cm in dimension. No focal uterine lesion is seen. Endometrial thickness is normal measuring 1.4 cm. The cervix is normal. The ovaries are normal. The right ovary measures 3.5 x 1.8 x 1.7 cm. The left ovary measures 3.7 x 1.7 x 2.2 cm. There is no fluid in the pelvis. US/US pelvic complete IMPRESSION: Normal pelvic ultrasound.
== END 2020-05-21 13:48 | disposition home or self-care (01) ==
LOC: HO.HMGCX 13:47
PROVIDERS: Visit Provider Obstetrics & Gynecology
DX: R10.2 Pelvic and perineal pain (principal)
CPT/HCPCS: 76830; 76856

== ENCOUNTER → 2020-05-24 11:02 | Outpatient (BNVA) | payer MEDICAID, SELFPAY | PROVIDERS: Visit Provider Obstetrics & Gynecology | DX: Z13.89 Encounter for screening for other disorder (principal) | CPT/HCPCS: 99212 ==

== ENCOUNTER → 2020-07-05 13:55 | Outpatient (BNVA) | payer MEDICAID, SELFPAY | PROVIDERS: Visit Provider Obstetrics & Gynecology | DX: O00.90 Unspecified ectopic pregnancy without intrauterine pregnancy (principal) | CPT/HCPCS: 99212 ==

== ENCOUNTER 2020-09-23 16:52 | Emergency (ER) | payer OTHER, SELFPAY ==
--- NOTE | ~2020-09-23 | XR_ITS ---
EXAMINATION: XR HAND, LEFT CLINICAL INFORMATION: Pain COMPARISON: None TECHNIQUE: PA, lateral, and oblique views of the left hand. FINDINGS: No acute fracture or dislocation. No bony erosion or osteopenia. XR/XR hand LT 2V IMPRESSION: No acute bony finding.
[2020-09-23 17:13] VITALS: BP 135/82; PULSE 91; RESP 18; TEMP 37.1; O2SAT 100; BMI 32.5
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
== END 2020-09-23 21:09 | disposition home or self-care (01) ==
PROVIDERS: Emergency Provider Internal Medicine
DX: S63.92XA Sprain of unspecified part of left wrist and hand, initial encounter (principal); V89.2XXA Person injured in unspecified motor-vehicle accident, traffic, initial encounter; Y93.9 Activity, unspecified; Y92.410 Unspecified street and highway as the place of occurrence of the external cause; Y99.9 Unspecified external cause status
CPT/HCPCS: 73120; 99282; 99283

== ENCOUNTER 2020-11-24 16:19 | Outpatient (REF) | payer MEDICAID, SELFPAY ==
--- NOTE | ~2020-11-24 | US_ITS ---
EXAMINATION: US THYROID CLINICAL INFORMATION: Mass in throat COMPARISON: None TECHNIQUE: Linear transducer grayscale and color Doppler examination with attention to the region of the thyroid. FINDINGS: SIZE: Measurements of the thyroid lobes and nodules are given in sagittal, anteroposterior and transverse dimensions respectively. Right Thyroid Lobe: 5.1 x 1.6 x 2.1 cm, volume 8.5 mL. Parenchyma: The gland echotexture is homogeneous. Thyroid vascularity is normal. Left Thyroid Lobe: 5.6 x 1.3 x 1.8 cm, volume 1.0 mL. Parenchyma: The gland echotexture is homogeneous. Thyroid vascularity is normal. Isthmus: 0.3 cm in maximum AP dimension. Estimated total number of nodules greater than or equal to 1 cm: 0. Photograph Developer nodules are described as follows: NODES: No lymphadenopathy is seen in the tissue surrounding the thyroid gland. US/US thyroid IMPRESSION: Normal thyroid ultrasound study without evidence of nodules. ACR TI-RADS RECOMMENDATION REFERENCE: Ultrasound-guided fine-needle aspiration, followup ultrasound, no further follow up. * TR1 (0 point) and TR 2 (2 points): No FNA or follow up * TR3 (3 points): FNA if more than or equal to 2.5 cm in maximum dimension, followup ultrasound in 1, 3 and 5 years if 1.5 to 2.4 cm in maximum dimension. * TR4 (4-6 points): FNA if more than or equal to 1.5 cm in maximum dimension, followup ultrasound in 1, 2, 3 and 5 years if 1 to 1.4 cm in maximum dimension. * TR5 (more than or equal to 7 points): FNA if more than or equal to 1 cm in maximum dimension, followup ultrasound every year for 5 years if 0.5 to 0.9 cm in maximum dimension. * TR3, TR4 or TR5 nodules that are below the size threshold for follow up receive no follow up.
== END 2020-11-24 16:20 | disposition home or self-care (01) ==
LOC: HO.US 16:19
PROVIDERS: PCP Registered Nurse; Visit Provider Registered Nurse
DX: J39.2 Other diseases of pharynx (principal); M54.2 Cervicalgia
CPT/HCPCS: 76536

== ENCOUNTER 2021-02-03 15:02 | Outpatient (REF) | payer MEDICAID, SELFPAY ==
[2021-02-04 11:10] LABS: BV Int Neg Control Negative (Negative); BV Int Pos Control Positive (Positive)
[2021-02-04 14:33] LABS: CT PCR NOT DETECTED (Not Detect.); NG PCR NOT DETECTED (Not Detect.)
== END 2021-02-03 15:03 | disposition home or self-care (01) ==
LOC: HO.LAB 15:02
PROVIDERS: PCP Registered Nurse; Visit Provider Obstetrics & Gynecology
DX: Z01.419 Encounter for gynecological examination (general) (routine) without abnormal findings (principal); N89.8 Other specified noninflammatory disorders of vagina
CPT/HCPCS: 87480; 87491; 87510; 87591; 87660; 88142

== ENCOUNTER 2021-05-23 22:45 | Emergency (ER) | payer MEDICAID, SELFPAY ==
[2021-05-23 22:53] VITALS: BP 140/87; PULSE 93; RESP 18; TEMP 36.6; O2SAT 100; BMI 34.2
--- NOTE | 2021-05-24 00:20 | ED.EXTPRO ---
HPI - Extremity Problem General Chief complaint: Extremity Injury, Upper Stated complaint: right shoulder pain Time Seen by Provider: 05/24/21 00:17 Source: patient Mode of arrival: ambulatory Limitations: no limitations History of Present Illness HPI Narrative: This is a 26-year-old female no significant medical history presenting to the emergency department with complaints of atraumatic right shoulder pain, right arm tingling x 3 hours. Patient tells me that she was playing fortnight when this started. She tells me that earlier today she was experiencing palpitations, and a little bit of chest pressure she tells me this feels like her typical anxiety/panic. However this has resolved. At this time she does tells me she is having shoulder pain. She tells me she cannot pinpoint what makes it better worse. She tells me movement does not make it worse. She tells me it is constant discomfort/pain. She tells me is hard to explain. She tells me at times she feels like her neck is a little stiff as well. She denies chest pain, shortness of breath, nausea, vomiting, fevers, chills, numbness, headache, dizziness, vision changes. She denies trauma. MD Complaint: joint paint Onset (ago): hour(s) (3) Pain Consistency: constant Location: right Quality: constant Radiation: none Relieving factors: nothing Exacerbating factors: nothing Associated symptoms: denies other symptoms Related Data Previous Rx's Medication Instructions Recorded cyclobenzaprine 10 mg tablet 5 mg PO BEDTIME PRN #7 tab 05/24/21 Allergies Allergy/AdvReac Type Severity Reaction Status Date / Time No Known Allergies Allergy Verified 05/23/21 22:53 Review of Systems Review of Systems: Constitutional : No Weight loss, No Fever, No Chills, No Fatigue, No Malaise ENT/Mouth : No sore throat, No Rhinorrhea Eyes: No Eye Pain, No Swelling, No Redness Cardiovascular : No Chest Pain, No SOB, No Dyspnea on Exertion, No Orthopnea, No Edema, No Palpitations Respiratory : No Cough, No Sputum, No Wheezing Gastrointestinal : No Nausea, No Vomiting, No Diarrhea, No Constipation, No abdominal Pain, No Hematochezia, No Melena Genitourinary : No Dysuria, No Urinary Frequency, No Hematuria, Musculoskeletal : + joint pain, No Myalgias, No Joint Swelling Skin : No Skin Lesions, No rash Neuro : No Weakness, No Numbness, No Dizziness, No Headache Psych : No Anxiety/Panic, No Depression All other systems reviewed and are negative Yes all other systems are reviewed and are negative [facility] Past Medical History Attestation statement: The following information was validated with the patient. Source: old records reviewed and nursing notes reviewed Medical History Cyst (solitary) of breast Surgical History H/O removal of cyst Social History Social History Alcohol intake: current Alcohol intake frequency: holidays/special occasions only Patient Tobacco Use Status: Never used Tobacco Advance Directives: No Patient : No Sexual orientation: Straight/Heterosexual Gender identity: Female Physical Exam Vital Signs: Vital Signs: Last Vital Signs Temp 98 F 05/23/21 22:53 Pulse 93 05/23/21 22:53 Resp 18 05/23/21 22:53 BP 140/87 H 05/23/21 22:53 Pulse Ox 100 05/23/21 22:53 BMI result Body Mass Index 34.2 VSS Appearance: Alert.? Oriented X3.? No acute distress.? Head: Normocephalic, atraumatic, no step-offs or deformities Eyes: Pupils equal, round and reactive to light.? ENT: Pharynx normal.? Neck: Normal inspection.? Neck supple.? CVS: Normal heart rate and rhythm.? Pulses normal.? Respiratory: No respiratory distress.? Breath sounds normal.? Abdomen: Soft and nontender.? Skin: Skin warm and dry.? Normal skin color.? Normal skin turgor.? Extremities: 5/5 strength to bilateral upper and lower extremities bilateral shoulders with full range of motion, discomfort with range of motion of right shoulder. No step-offs or deformities bilaterally no evident ligament or tendon involvement. No AC separation noted to bilateral sides. 2+ radial pulses equal bilateral. No wrist drop bilaterally. Capillary refill less than 2 seconds all fingers. For extremities. Back: No midline tenderness, no C-spine tenderness, full range of motion, no CVA tenderness bilaterally Neuro: Oriented X 3.? No motor deficit.? No sensory deficit. CN 2-12 intact Course Reevaluation(s) Reevaluation #1: Troponin less than 3.5. EKG nonischemic. At this time likely right shoulder strain. At this time she does not report chest pain, shortness of breath, palpitations. He tells me she is only having discomfort to her right shoulder. Now she tells me that the pain might be a little bit worse with movement, better at rest. Patient will be discharged home on a muscle relaxer and advised to return at that new or worsening symptoms and to follow-up with her PCP. I also told her that if symptoms do not improve within 2 weeks she should follow up with Ortho. Gave her worrisome signs and symptoms. Time: 01:14 MDM - Extremity (Nontraumatic) MDM Narrative Medical decision making narrative: 0022 26-year-old female presents with atraumatic right shoulder pain x3 hour. He reports palpitations/chest pressure earlier this morning which has since resolved. No cardiac history. Not on blood thinners. Physical examination benign. 5/5 strength to bilateral upper and lower extremities bilateral shoulders with full range of motion, discomfort with range of motion of right shoulder. No step-offs or deformities bilaterally no evident ligament or tendon involvement. No AC separation noted to bilateral sides. 2+ radial pulses equal bilateral. No wrist drop bilaterally. Capillary refill less than 2 seconds all fingers. Although patient's history and physical examination not consistent with ACS will rule out ACS as she is reporting atraumatic right shoulder pain. Plan x-ray of right shoulder, troponin and EKG. Medical Records Attestation: I reviewed the patient's medical records. Lab Data Attestation: I reviewed the patient's lab results. Labs: Lab Results 05/24/21 Range/Units 00:38 Troponin I High Sens < 3.5 (<3.5-17.0) ng/L ECG Data Attestation EKG: I personally reviewed and interpreted this ECG as follows: ECG interpretation date: 05/24/21 ECG interpretation time: 01:15 Prior ECG tracings: available for review Interpretation: Mid ventricular rate of 77, MI normal, QRS normal, QT/ QTC normal. EKG shows normal sinus rhythm, no ST elevations or inversions concerning for ischemia. No previous EKGs to compare with. Critical Care Time Critical Care Time Critical Care Time: No Discharge Plan Discharge Clinical Impression: Right shoulder strain Patient Disposition: Home, Self-Care Instructions: Muscle Strain (ED) Additional Instructions: Take your medications as prescribed. If you were prescribed antibiotics today, it is important that you take your medication to their entirety, do not skip any doses, do not finish them early. Follow-up with your primary care provider this week. Follow-up with orthopedics if pain does not improve in 2 weeks Return to the emergency department with new or worsening symptoms. Such as chest pain, shortness of breath, nausea, vomiting, fevers, chills, worsening shoulder pain, numbness or tingling, paresthesias. In case of emergency call 911 [place] [facility] medicamentos seg?n lo prescrito. Si le recetaron antibi?ticos hoy, es importante que tome trevino medicamento en trevino totalidad, no se salte ninguna dosis, no los termine antes de tiempo. Seguimiento con trevino proveedor de atenci?n primaria esta semana. Seguimiento con ortopedia si el dolor no mejora en 2 semanas Regrese al departamento de emergencias con s?ntomas nuevos o que empeoran. Tales soo dolor en el pecho, dificultad para respirar, n?useas, v?mitos, fiebre, escalofr?os, empeoramiento del dolor en el hombro, entumecimiento u hormigueo, parestesias. En rose marie de emergencia llama al 91 Prescriptions: New cyclobenzaprine 10 mg tablet 5 mg PO BEDTIME PRN (Reason: muscle spasm) Qty: 7 0RF Referrals: Jarad Still MD [Physician] - 2 days Physician,Sakshi Aragon [Physician] - 2 days Stand Alone Forms: Work/School Release Print Language: Macedonian
--- NOTE | 2021-05-24 00:36 | ECG_ITS ---
Test Reason : CHEST PAIN Blood Pressure : / mmHG Vent. Rate : 077 BPM Atrial Rate : 077 BPM P-R Int : 152 ms QRS Dur : 084 ms QT Int : 358 ms P-R-T Axes : 061 074 043 degrees QTc Int : 405 ms Normal sinus rhythm Normal ECG No previous ECGs available Referred By: Martir Martinez Electronically Signed By:Everton Mi
[2021-05-24 01:03] LABS: Troponin-I High Sensitivity < 3.5 ng/L (<3.5-17.0)
[2021-05-24 01:26] VITALS: BP 126/76; PULSE 72; RESP 17; O2SAT 100
== END 2021-05-24 01:52 | disposition home or self-care (01) ==
LOC: HO.ED 05-24 00:22
PROVIDERS: Physician Assistant; Emergency Provider Internal Medicine
DX: S46.911A Strain of unspecified muscle, fascia and tendon at shoulder and upper arm level, right arm, initial encounter (principal); R00.2 Palpitations; X58.XXXA Exposure to other specified factors, initial encounter; Y93.9 Activity, unspecified; Y92.9 Unspecified place or not applicable; Y99.9 Unspecified external cause status; Z79.899 Other long term (current) drug therapy
CPT/HCPCS: 36415; 84484; 93005; 99283; 99284

== ENCOUNTER 2021-11-26 05:52 | Emergency (ER) | payer MEDICAID, SELFPAY ==
--- NOTE | ~2021-11-26 | CT_ITS ---
EXAMINATION: CT ABDOMEN AND PELVIS WITHOUT CONTRAST CLINICAL INFORMATION: Left flank pain and hematuria, rule out nephrolithiasis/hydronephrosis. COMPARISON: None TECHNIQUE: Multidetector volumetric imaging was performed from the superior aspect of the liver through the pubic symphysis. Sagittal and coronal reformatted images were obtained on the technologist's workstation. Lack of intravenous and oral contrast limits visceral evaluation. This CT examination was performed using dose optimization techniques as appropriate, variously including the following: *Automated exposure control *Adjustment of mA and/or kV according to patient size (this includes techniques or standardized protocols for targeted exams where dose is matched to indication/reason for exam; i.e. extremities or head) *Use of iterative reconstruction technique DLP: [id number] mGy-cm FINDINGS: LUNG BASES: The visualized lung bases are unremarkable. LIVER, GALLBLADDER, AND BILIARY TREE: Unremarkable. PANCREAS: Unremarkable. SPLEEN: Unremarkable. ADRENAL GLANDS: Unremarkable. KIDNEYS AND URETERS: Mild left hydroureteronephrosis caused by a 0.2 cm calculus in the distal one third of the left ureter, proximal to the left ureterovesical junction. Punctate medullary based calcifications are seen bilaterally, right greater than left. No right hydroureteronephrosis. BLADDER: Minimally distended limiting evaluation without overt abnormality. GASTROINTESTINAL TRACT: The stomach and small bowel unremarkable. No evidence for acute appendicitis. The colon and rectum are unremarkable. ABDOMINAL WALL: No significant hernia is appreciated. LYMPH NODES: No lymphadenopathy. VASCULAR: Unremarkable. PELVIC VISCERA: Unremarkable. OSSEOUS STRUCTURES: Unremarkable. CT/CT abdomen pelvis wo IV con IMPRESSION: 1. Mild left hydroureteronephrosis caused by 0.2 cm calculus in the distal one third of the left ureter. 2. Intrarenal calcifications suggest medullary nephrocalcinosis.
[2021-11-26 06:57] VITALS: BP 128/83; PULSE 74; RESP 20; TEMP 36.5; O2SAT 96; BMI 34.7
[2021-11-26] MEDS: Ondansetron ODT 4 MG TAB.RAPDIS TRANSLINGU (07:01)
[2021-11-26 07:35] LABS: UPreg QC Valid YES; Urine Pregnancy NEGATIVE (NEGATIVE)
[2021-11-26 07:51] LABS: MANUAL DIFF FLAG NO
[2021-11-26 07:51] LABS: Appearance Urine Cloudy; Color Urine Dark Yellow; Glucose Urine UA Negative (Negative); Leukocyte Esterase Urine Negative (Negative); Nitrite Urine Negative (Negative); PH 5.5 (5.0-9.0); Urine Blood Large (3+) (Negative); Urine Ketones Trace mg/dL (Negative); Urine Protein 30 (1+) mg/dL (Neg-Trace)
[2021-11-26 07:53] LABS: Bacteria Urine None Seen (None Seen); Hyaline Casts Urine 0-2 /LPF (0-2); RBC Urine >20 /HPF (0-2); Specific Gravity - Urine >= 1.030 (1.005-1.025); WBC Urine 0-5 /HPF (0-5)
[2021-11-26 08:00] LABS: Basophils Absolute Auto 0.1 X10*3/uL (0.0-0.2); Basophils Percent Auto 0.4 % (0-2); Eosinophils Absolute Auto 0.1 X10*3/uL (0.0-0.4); Eosinophils Percent Auto 0.4 % (0-4); Hematocrit 40.8 % (37.0-47.0); Hemoglobin 12.6 g/dl (12.0-16.0); Imm Gran Abs Auto 0.04 X10*3/uL (0.00-0.03); Imm Gran Pct Auto 0.3 % (0.0-0.4); Lymphocytes Absolute Auto 2.1 X10*3/uL (1.2-4.9); Lymphocytes Percent Auto 16.5 % (20-40); Mean Corpuscular HGB Conc 30.9 g/dl (31.0-35.0); Mean Corpuscular Hemoglobin 25.1 pg (27.0-33.0); Mean Corpuscular Volume 81.3 fL (80.0-98.0); Mean Platelet Volume 13.2 fL (9.4-12.3); Monocytes Absolute Auto 0.7 X10*3/uL (0.1-1.2); Monocytes Percent Auto 5.4 % (2-11); Neutrophils Absolute Auto 9.8 x10*3/uL (2.0-8.3); Platelet Count 184 X10*3/uL (160-400); Red Blood Count 5.02 X10*6/uL (4.20-5.50); Red Cell Distribution Width 14.8 % (11.0-16.0); White Blood Count 12.8 X10*3/uL (4.8-10.8)
--- NOTE | 2021-11-26 08:06 | ED_ITS ---
HPI - Abdominal Pain General Chief Complaint: Abdominal Pain Stated Complaint: back pain Time Seen by Provider: 11/26/21 07:56 Source: patient and old records reviewed Mode of arrival: ambulatory Limitations: language barrier (British-speaking medical assistant cardiology utilized) History of Present Illness HPI narrative: Patient presents emergency department for evaluation of left flank pain. Began at 05:00 this morning began in the left flank radiates to the lateral abdomen urgency, left lower abdomen. Pain is been constant, with varying intensity. Described as severe, sharp, stabbing. With worse with some movements, denies alleviating factors. Has associated nausea without vomiting. Reports this feels similar to her prior kidney stone she had a few years ago. States that they resolved with use of medication. Denies dysuria or urinary frequency/urgency/hesitancy, hematuria, fevers, chills. Related Data Previous Rx's Medication Instructions Recorded cyclobenzaprine 10 mg tablet 5 mg PO BEDTIME PRN muscle spasm 05/24/21 #7 tabs naproxen 500 mg tablet 500 mg PO BID PRN pain #10 tabs 11/26/21 ondansetron 4 mg disintegrating 4 mg PO Q8H PRN nausea and 11/26/21 tablet vomiting #7 tabs oxycodone 5 mg tablet 5 mg PO Q6H PRN pain #10 tabs 11/26/21 tamsulosin 0.4 mg capsule 0.4 mg PO BEDTIME #5 caps 11/26/21 Allergies Allergy/AdvReac Type Severity Reaction Status Date / Time No Known Allergies Allergy Verified 05/23/21 22:53 Review of Systems Review of Systems Constitutional : No Weight loss, No Fever, No Chills ENT/Mouth :? No sore throat, No Rhinorrhea Eyes: No Swelling, No Redness Cardiovascular : No Chest Pain, No SOB, No Edema Respiratory : No Cough, No Sputum, No Wheezing Gastrointestinal : Positive Nausea, no Vomiting, no Diarrhea, positive abdominal pain, No Hematochezia, No Melena Genitourinary : No Dysuria, No Urinary Frequency, No Hematuria, No Urgency? Musculoskeletal : No joint pain, No Myalgias, No Joint Swelling Skin : No Skin Lesions, No rash Neuro : No Weakness, No Numbness, No Dizziness, No Headache Psych : No Anxiety/Panic, No Depression Heme/Lymph: No Bruising, No Lymphadenopathy Endocrine : No Polyuria, No Polydipsia [facility] Past Medical History Attestation statement: The following information was validated with the patient. Source: old records reviewed Medical History Cyst (solitary) of breast Surgical History H/O removal of cyst Social History Social History Alcohol intake: current Alcohol intake frequency: does not drink Patient Tobacco Use Status: Never used Tobacco Use of substances other than those prescribed or required for medical reasons: No Advance Directives: No Advance Directives Information Provided: No Sexual orientation: Straight/Heterosexual Gender identity: Female Physical Exam ED Vital Signs: Vital Signs - 24 hr 11/26/21 06:57 11/26/21 08:41 Temperature 97.7 F 97.7 F Pulse Rate 74 75 Respiratory Rate 20 16 Blood Pressure 128/83 131/84 Pulse Oximetry 96 100 Oxygen Delivery Method Room Air Room Air BMI result Body Mass Index 34.7 Appearance: Alert.?Oriented to person, place and time. No acute distress.?Normal affect. Eyes: Pupils equal, round and reactive to light.? ENT: Pharynx normal.?? Neck: Normal inspection.? Neck supple.?? CVS: Heart sounds normal. Normal heart rate and rhythm.? Pulses normal.?? Respiratory: No respiratory distress.? Lung sounds clear to auscultation bilaterally?? Abdomen: Soft and non-tender. Normoactive bowel sounds. No pulsatile mass.??Positive left CVA tenderness Skin: Skin warm and dry.? Normal skin color.? Extremities: No lower extremity edema.? Neuro: Moves all extremities spontaneously. Sensation intact bilaterally. No new motor deficits. Ambulates with normal steady gait. Course Course Course Narrative: Patient is a 26 old female with a past medical history of nephrolithiasis, ovarian cyst, ectopic patient presents to the emergency department today for evaluation of sudden onset severe left flank pain, reportedly similar to a passed kidney stone. She appears significantly uncomfortable, vital signs are stable without tachycardia or fever. Denies genitourinary symptoms. Will obtain CBC to evaluate for leukocytosis/ anemia, CMP to evaluate for abnormal electrolytes /abnormal renal function/ abnormal hepatic function, Urinalysis, CT of the abdomen pelvis to evaluate for nephrolithiasis/hydronephrosis. Procedure receive Zofran for nausea current ketorolac for pain, 1L NS IV. Disposition pending results.. Reevaluation(s) Reevaluation #1: Urinalysis reveals microscopic hematuria, urine test is negative. CBC indicates mild leukocytosis 12.8, CMP overall unremarkable. Pain had initially improved after ketorolac, but then returned again with severe pain for which patient received morphine IV. CT reveals a mild left hydroureternephrosis caused by 2mm calculi in the distal 1/3 of the left ureter, with intrarenal calcifications. Reviewed these findings with patient, discussed plan of care for discharge home, naproxen/oxycodone for pain, Zofran as needed for nausea, tamsulosin daily at bedtime, outpatient follow-up with Urology, advised to contact their office to schedule appointment, reviewed worsening signs and sym ptoms to return back to the emergency department for. All questions were answered, she was discharged in stable condition. MDM - Abdominal Pain Medical Records Attestation: I reviewed the patient's medical records. Lab Data Attestation: I reviewed the patient's lab results. Result diagrams: 11/26/21 07:47 11/26/21 08:12 Labs: Lab Results 11/26/21 11/26/21 11/26/21 Range/Units 07:13 07:13 07:47 WBC 12.8 H (4.8-10.8) X10*3/uL RBC 5.02 (4.20-5.50) X10*6/uL Hgb 12.6 (12.0-16.0) g/dl Hct 40.8 (37.0-47.0) % MCV 81.3 (80.0-98.0) fL MCH 25.1 L (27.0-33.0) pg MCHC 30.9 L (31.0-35.0) g/dl RDW 14.8 (11.0-16.0) % Plt Count 184 (160-400) X10*3/uL MPV 13.2 H (9.4-12.3) fL Immature Gran % (Auto) 0.3 (0.0-0.4) % Neut % (Auto) 77.0 H (45-73) % Lymph % (Auto) 16.5 L (20-40) % [place] % (Auto) 5.4 (2-11) % Eos % (Auto) 0.4 (0-4) % Baso % (Auto) 0.4 (0-2) % Lymph # (Auto) 2.1 (1.2-4.9) X10*3/uL [place] # (Auto) 0.7 (0.1-1.2) X10*3/uL Eos # (Auto) 0.1 (0.0-0.4) X10*3/uL Baso # (Auto) 0.1 (0.0-0.2) X10*3/uL Abs Immat Gran (auto) 0.04 H (0.00-0.03) X10*3/uL Absolute Neuts (auto) 9.8 H (2.0-8.3) x10*3/uL Absolute Nucleated RBC 0.000 (0.0-0.012) X10*3/uL Nucleated RBC % (auto) 0.0 (0.0-0.2) /100WBC Sodium (135-145) mmol/L Potassium (3.3-5.1) mmol/L Chloride (96-108) mmol/L Carbon Dioxide (22-29) mmol/L Anion Gap (12-20) BUN (9-16) mg/dL Creatinine (0.5-1.4) mg/dL Estim Creat Clear Calc Estimated GFR Random Glucose (60-115) mg/dL Calcium (8.4-10.2) mg/dL Total Bilirubin (0.0-1.0) mg/dL AST (5-31) U/L ALT (0-31) U/L Alkaline Phosphatase (39-117) U/L Total Protein (6.5-8.0) g/dL Albumin (3.5-5.0) g/dL Urine Color Dark Yellow Urine Appearance Cloudy Urine pH 5.5 (5.0-9.0) Ur Specific [place] >= 1.030 H (1.005-1.025) Urine Protein 30 (1+) H (Neg-Trace) mg/dL Urine Glucose (UA) Negative (Negative) mg/dL Urine Ketones Trace (Negative) mg/dL Urine Blood Large (3+) H (Negative) Urine Nitrite Negative (Negative) Ur Leukocyte Esterase Negative (Negative) Urine RBC >20 H (0-2) /HPF Urine WBC 0-5 (0-5) /HPF Ur Squamous Epith Cells 11-20 (0-2) /HPF Urine Bacteria None Seen (None Seen) Hyaline Casts 0-2 (0-2) /LPF Urine Test NEGATIVE (NEGATIVE) 11/26/21 Range/Units 08:12 WBC (4.8-10.8) X10*3/uL RBC (4.20-5.50) X10*6/uL Hgb (12.0-16.0) g/dl Hct (37.0-47.0) % MCV (80.0-98.0) fL MCH (27.0-33.0) pg MCHC (31.0-35.0) g/dl RDW (11.0-16.0) % Plt Count (160-400) X10*3/uL MPV (9.4-12.3) fL Immature Gran % (Auto) (0.0-0.4) % Neut % (Auto) (45-73) % Lymph % (Auto) (20-40) % [place] % (Auto) (2-11) % Eos % (Auto) (0-4) % Baso % (Auto) (0-2) % Lymph # (Auto) (1.2-4.9) X10*3/uL [place] # (Auto) (0.1-1.2) X10*3/uL Eos # (Auto) (0.0-0.4) X10*3/uL Baso # (Auto) (0.0-0.2) X10*3/uL Abs Immat Gran (auto) (0.00-0.03) X10*3/uL Absolute Neuts (auto) (2.0-8.3) x10*3/uL Absolute Nucleated RBC (0.0-0.012) X10*3/uL Nucleated RBC % (auto) (0.0-0.2) /100WBC Sodium 140 (135-145) mmol/L Potassium 3.6 (3.3-5.1) mmol/L Chloride 106 (96-108) mmol/L Carbon Dioxide 20 L (22-29) mmol/L Anion Gap 18 (12-20) BUN 12 (9-16) mg/dL Creatinine 1.06 (0.5-1.4) mg/dL Estim Creat Clear Calc 85.8 Estimated GFR > 60 Random Glucose 171 H (60-115) mg/dL Calcium 9.3 D (8.4-10.2) mg/dL Total Bilirubin 0.3 (0.0-1.0) mg/dL AST 18 (5-31) U/L ALT 18 (0-31) U/L Alkaline Phosphatase 94 (39-117) U/L Total Protein 7.9 (6.5-8.0) g/dL Albumin 4.4 (3.5-5.0) g/dL Urine Color Urine Appearance Urine pH (5.0-9.0) Ur Specific [place] (1.005-1.025) Urine Protein (Neg-Trace) mg/dL Urine Glucose (UA) (Negative) mg/dL Urine Ketones (Negative) mg/dL Urine Blood (Negative) Urine Nitrite (Negative) Ur Leukocyte Esterase (Negative) Urine RBC (0-2) /HPF Urine WBC (0-5) /HPF Ur Squamous Epith Cells (0-2) /HPF Urine Bacteria (None Seen) Hyaline Casts (0-2) /LPF Urine Test (NEGATIVE) Discharge Plan Discharge Clinical Impression: Nephrolithiasis, Renal colic Patient Disposition: Home, Self-Care Instructions: Kidney Stones (ED), How to Strain Your Urine (ED) Additional Instructions: As we discussed, you have a kidney stone on the left side that is in the process of passing. This is the reason for your pain. You have been given a new prescription for naproxen to take twice daily, please begin this medication tonight. Do not take ibuprofen/Motrin/Advil while taking this medication If the naproxen is not alleviating your pain you can take oxycodone as needed, this is a narcotic, it may be addictive, it may make you drowsy. Do not drive, drink alcohol, or go to work while taking this medication. Take tamsulosin daily at bedtime, drink plenty of water while taking this, get out of bed slowly during the night/in the morning to prevent any dizziness Please contact Urology to arrange for a follow-up next week if you continue to have symptoms. Contact your primary care provider and arrange for a follow-up visit. Return to the emergency department any new or worsening symptoms or concerns Kavya comentamos, tiene un c?lculo renal en el lado cyndy que est? en proceso de eliminaci?n. Esta es la justice?n de trevino dolor. Se le rodriguez dado james nueva receta de naproxeno para carly dos veces al d?a, comience a carly beto medicamento esta noche. No tome ibuprofeno/Motrin/Advil mientras mariela beto medicamento Si el naproxeno no helder trevino dolor, puede carly oxicodona seg?n sea necesario, es un narc?gregor, puede ser adictivo, puede causarle somnolencia. No conduzca, tim alcohol ni vaya a trabajar mientras mariela beto medicamento. [place] tamsulosina diariamente a la hora de acostarse, tim anne agua mientras la mariela, lev?ntese de la cama lentamente thai la noche/por la ma?candi para evitar mareos. Comun?quese con Urolog?a para programar un seguimiento la pr?xima semana si contin?a teniendo s?ntomas. Comun?quese con trevino proveedor de atenci?n primaria y programe james visita de seguimiento. Devuelva al departamento de emergencias cualquier s?ntoma o inquietud nueva o que empeore Prescriptions: New naproxen 500 mg tablet 500 mg PO BID PRN (Reason: pain) Qty: 10 0RF ondansetron 4 mg tablet,disintegrating 4 mg PO Q8H PRN (Reason: nausea and vomiting) Qty: 7 0RF tamsulosin 0.4 mg capsule 0.4 mg PO BEDTIME Qty: 5 0RF oxycodone 5 mg tablet 5 mg PO Q6H PRN (Reason: pain) Qty: 10 0RF Rx Instructions: Partial Fill upon patient request. No Action cyclobenzaprine 10 mg tablet 5 mg PO BEDTIME PRN (Reason: muscle spasm) Qty: 7 0RF Referrals: Jann Swanson MD [Physician] - 1 week Print Language: British
[2021-11-26] MEDS: Ketorolac Tromethamine 30 MG/ML VIAL IVPUSH (08:22)
[2021-11-26 08:41] VITALS: BP 131/84; PULSE 75; RESP 16; TEMP 36.5; O2SAT 100
[2021-11-26 08:48] LABS: Alanine Aminotransferase 18 U/L (0-31); Albumin Level 4.4 g/dL (3.5-5.0); Alkaline Phosphatase 94 U/L (39-117); Anion Gap 18 (12-20); Aspartate Amino Transferase 18 U/L (5-31); Bilirubin Total 0.3 mg/dL (0.0-1.0); Blood Urea Nitrogen 12 mg/dL (9-16); Calcium 9.3 mg/dL (8.4-10.2); Carbon Dioxide 20 mmol/L (22-29); Chloride 106 mmol/L (96-108); Creatinine Clr Calc Pharmacy 85.8; Estimated Glomerular Filt Rate > 60; Glucose Random 171 mg/dL (60-115); Potassium 3.6 mmol/L (3.3-5.1); Sodium 140 mmol/L (135-145); Total Protein 7.9 g/dL (6.5-8.0)
[2021-11-26] MEDS: 0.9 % Sodium Chloride 1,000 ML 999 ML IV (09:00)
[2021-11-26] MEDS: Morphine Sulfate 4 MG/ML CARTRIDGE IVPUSH (10:00)
== END 2021-11-26 11:09 | disposition home or self-care (01) ==
PROVIDERS: Emergency Provider Emergency Medicine
DX: N13.2 Hydronephrosis with renal and ureteral calculous obstruction (principal); R31.29 Other microscopic hematuria
CPT/HCPCS: 36415; 74176; 80053; 81001; 81025; 85025; 96361; 96374; 96375; 99284; J1885; J2270

== ENCOUNTER 2021-12-03 20:48 | Emergency (ER) | payer MEDICAID, SELFPAY ==
--- NOTE | ~2021-12-03 | CT_ITS ---
EXAMINATION: CT ABDOMEN AND PELVIS WITHOUT CONTRAST CLINICAL INFORMATION: Worsening left flank pain COMPARISON: 11/26/2021 TECHNIQUE: Multidetector volumetric imaging was performed from the superior aspect of the liver through the pubic symphysis. Sagittal and coronal reformatted images were obtained on the technologist's workstation. This CT examination was performed using dose optimization techniques as appropriate, variously including the following: *Automated exposure control *Adjustment of mA and/or kV according to patient size (this includes techniques or standardized protocols for targeted exams where dose is matched to indication/reason for exam; i.e. extremities or head) *Use of iterative reconstruction technique DLP: 675 mGy-cm FINDINGS: LUNG BASES: The visualized lung bases are unremarkable. LIVER, GALLBLADDER, AND BILIARY TREE: The liver is normal in size, shape, and attenuation. No focal hepatic lesion or biliary ductal dilatation is identified. The gallbladder is unremarkable with no evidence of radiopaque gallstones, gallbladder wall thickening, or obvious pericholecystic inflammatory changes. PANCREAS: Unremarkable. SPLEEN: Unremarkable. ADRENAL GLANDS: Unremarkable. KIDNEYS AND URETERS: There is a 2 mm calculus in the region of the left ureterovesicular junction with mild to moderate hydronephrosis and mild perinephric stranding, similar to prior. No right-sided hydronephrosis. Punctate bilateral renal calcifications again noted. BLADDER: Mildly distended. GASTROINTESTINAL TRACT: No evidence of bowel obstruction or significant wall thickening. The appendix is unremarkable. No free fluid or free air is seen. ABDOMINAL WALL: No significant hernia is appreciated. LYMPH NODES: No lymphadenopathy is seen, though assessment is limited in the absence of intravenous contrast. VASCULAR: Unremarkable. PELVIC VISCERA: Unremarkable. OSSEOUS STRUCTURES: Unremarkable. CT/CT abdomen pelvis wo IV con IMPRESSION: Punctate calculus in the region of the left ureterovesicular junction with mild to moderate hydronephrosis. Compared to 11/26/2021, the calculus appears more distal in location.
[2021-12-03 21:16] VITALS: BP 146/91; PULSE 110; RESP 18; TEMP 36.9; O2SAT 99; BMI 34.5
[2021-12-03 21:25] LABS: Appearance Urine Clear; Color Urine Yellow; Glucose Urine UA Negative (Negative); Leukocyte Esterase Urine Trace (Negative); Nitrite Urine Negative (Negative); PH 6.5 (5.0-9.0); Specific Gravity - Urine >= 1.030 (1.005-1.025); Urine Blood Negative (Negative); Urine Ketones Trace mg/dL (Negative); Urine Protein Negative (Neg-Trace)
[2021-12-03 21:25] LABS: Hemoglobin 11.9 g/dl (12.0-16.0); Mean Corpuscular Hemoglobin 25.4 pg (27.0-33.0); Mean Platelet Volume 13.1 fL (9.4-12.3); Red Blood Count 4.68 X10*6/uL (4.20-5.50); Red Cell Distribution Width 14.6 % (11.0-16.0)
[2021-12-03 21:27] LABS: Mean Corpuscular HGB Conc 31.3 g/dl (31.0-35.0); Mean Corpuscular Volume 81.2 fL (80.0-98.0); Platelet Count 149 X10*3/uL (160-400); White Blood Count 9.7 X10*3/uL (4.8-10.8)
[2021-12-03 21:30] LABS: Bacteria Urine None Seen (None Seen); Hyaline Casts Urine 0-2 /LPF (0-2); RBC Urine 0-2 /HPF (0-2); Squamous Epithelial Cell Urine 0-2 /HPF (0-2); WBC Urine 0-5 /HPF (0-5)
[2021-12-03 21:31] LABS: PLT ABN DIST 1
[2021-12-03 21:43] LABS: Alanine Aminotransferase 19 U/L (0-31); Albumin Level 4.1 g/dL (3.5-5.0); Alkaline Phosphatase 90 U/L (39-117); Anion Gap 16 (12-20); Aspartate Amino Transferase 18 U/L (5-31); Bilirubin Total 0.2 mg/dL (0.0-1.0); Blood Urea Nitrogen 19 mg/dL (9-16); Calcium 9.6 mg/dL (8.4-10.2); Carbon Dioxide 26 mmol/L (22-29); Chloride 104 mmol/L (96-108); Creatinine Clr Calc Pharmacy 65.2; Estimated Glomerular Filt Rate 46; Glucose Random 109 mg/dL (60-115); Potassium 4.7 mmol/L (3.3-5.1); Sodium 141 mmol/L (135-145); Total Protein 7.2 g/dL (6.5-8.0)
[2021-12-04 00:59] LABS: UPreg QC Valid YES; Urine Pregnancy NEGATIVE (NEGATIVE)
[2021-12-04 02:00] VITALS: BP 142/98; PULSE 93; RESP 16; TEMP 36.1; O2SAT 98
--- NOTE | 2021-12-04 02:27 | ED.GENADULT ---
HPI - General Adult General Chief complaint: Back Pain/Injury Stated complaint: back pain Time Seen by Provider: 12/04/21 00:50 Source: patient Mode of arrival: ambulatory Limitations: no limitations History of Present Illness HPI narrative: patient comes in the emergency room complaining of left-sided flank pain. Patient was seen here 1 week ago, patient was diagnosed with kidney stones, 0.2 cm On the left side. Patient states that she has been taking tamsulosin with no relief. Patient denies fever chills, no Dysuria or hematuria Related Data Previous Rx's Medication Instructions Recorded cyclobenzaprine 10 mg tablet 5 mg PO BEDTIME PRN muscle spasm 05/24/21 #7 tabs naproxen 500 mg tablet 500 mg PO BID PRN pain #10 tabs 11/26/21 ondansetron 4 mg disintegrating 4 mg PO Q8H PRN nausea and 11/26/21 tablet vomiting #7 tabs oxycodone 5 mg tablet 5 mg PO Q6H PRN pain #10 tabs 11/26/21 tamsulosin 0.4 mg capsule 0.4 mg PO BEDTIME #5 caps 11/26/21 ketorolac 10 mg tablet 10 mg PO TID PRN pain #10 tabs 12/04/21 nitrofurantoin 100 mg PO Q12H 7 days #14 caps 12/04/21 monohydrate/macrocrystals 100 mg capsule (Macrobid) polyethylene glycol 3350 17 17 g PO BID #510 grams 12/04/21 gram/dose oral powder (Miralax) tamsulosin 0.4 mg capsule 0.4 mg PO DAILY #10 caps 12/04/21 Allergies Allergy/AdvReac Type Severity Reaction Status Date / Time No Known Allergies Allergy Verified 05/23/21 22:53 Review of Systems Review of Systems: Constitutional : No Weight loss, No Fever, No Chills, No Night Sweats, No Fatigue, No Malaise ENT/Mouth : No Hearing loss, No Ear Pain, No Nasal Congestion, No Sinus Pain, No Hoarseness, No sore throat, No Rhinorrhea, No Swallowing Difficulty Eyes: No Eye Pain, No Swelling, No Redness, No Foreign Body, No Discharge, No Vision Changes Cardiovascular : No Chest Pain, No SOB, No Dyspnea on Exertion, No Orthopnea, No Edema, No Palpitations Respiratory : No Cough, No Sputum, No Wheezing, No Smoke Exposure, No Dyspnea Gastrointestinal : No Nausea, No Vomiting, No Diarrhea, Complaining of Constipation, No abdominal Pain, No Hematochezia, No Melena Genitourinary : no irregular bleeding, No Dysuria, No Urinary Frequency, No Hematuria, No Urinary Incontinence, No Urgency, complaining of left-sided Flank Pain, No Urinary Flow Changes, No Hesitancy Musculoskeletal : No joint pain, No Myalgias, No Joint Swelling Skin : No Skin Lesions, No rash Neuro : No Weakness, No Numbness, No Paresthesias, No Loss of Consciousness, No Dizziness, No Headache Psych : No Anxiety/Panic, No Depression, No SI/HI/AH/VH, No Social Issues, Heme/Lymph: No Bruising, No Bleeding,No Lymphadenopathy Endocrine : No Polyuria, No Polydipsia, No Temperature Intolerance [facility] Past Medical History Medical History (Updated 12/04/21 @ 03:48 by Jodi Olivas MD) Cyst (solitary) of breast Ectopic Kidney stones Surgical History H/O removal of cyst Social History Social History Alcohol intake: current Alcohol intake frequency: does not drink Patient Tobacco Use Status: Never used Tobacco Advance Directives: No Advance Directives Information Provided: No Sexual orientation: Straight/Heterosexual Gender identity: Female Physical Exam ED Vital Signs: Vital Signs - 24 hr 12/03/21 21:16 12/04/21 02:00 Temperature 98.4 F 97.0 F Pulse Rate 110 H 93 Respiratory Rate 18 16 Blood Pressure 146/91 H 142/98 H Pulse Oximetry 99 98 Oxygen Delivery Method Room Air Room Air BMI result Body Mass Index 34.5 Const Other: Appearance: Alert. Oriented X3. since uncomfortable Eyes: Pupils equal, round and reactive to light. ENT: Pharynx normal. Neck: Normal inspection. Neck supple. No lymph nodes noted. No crepitus CVS: Normal heart rate and rhythm. Pulses normal. Normal S1 and S2 Respiratory: No respiratory distress. Breath sounds normal. No Wheezing. No rales Abdomen: Soft and nontender. No rigidity. No distention. back: Positive CVA tenderness on the left side Skin: Skin warm and dry. Normal skin color. Normal skin turgor. Extremities: No lower extremity edema. No Lacerations. No Rash Neuro: Oriented X 3. No motor deficit. No sensory deficit. Moving all extremities. No slurred speech. CN 2 through 12 grossly intact Psych: calm, cooperative, tearing Course Course Course Narrative: patient receiving IM Toradol. Patient states she has worsening left-sided pain, will go ahead and get a CT scan. White blood cell count within normal limits, creatinine within normal limits CT scan shows that the 2 mm calculus is more distal than the previous CT scan last week. Patient struck to follow-up with Urology patient has a very mild urinary tract infection, only positive for leukocyte esterase. Since patient has a 2 mm stone, but will start antibiotics to avoid pyelonephritis. At this time, sepsis is not suspected. patient also mentioned that she has been very constipated. Patient was prescribed oxycodone the last time. Medical Decision Making Lab Data Result diagrams: 12/03/21 21:00 12/03/21 21:00 Labs: Lab Results 12/03/21 12/03/21 12/03/21 Range/Units 21:00 21:00 21:05 WBC 9.7 (4.8-10.8) X10*3/uL RBC 4.68 (4.20-5.50) X10*6/uL Hgb 11.9 L (12.0-16.0) g/dl Hct 38.0 (37.0-47.0) % MCV 81.2 (80.0-98.0) fL MCH 25.4 L (27.0-33.0) pg MCHC 31.3 (31.0-35.0) g/dl RDW 14.6 (11.0-16.0) % Plt Count 149 L (160-400) X10*3/uL MPV 13.1 H (9.4-12.3) fL Absolute Nucleated RBC 0.000 (0.0-0.012) X10*3/uL Nucleated RBC % (auto) 0.0 (0.0-0.2) /100WBC Sodium 141 (135-145) mmol/L Potassium 4.7 D (3.3-5.1) mmol/L Chloride 104 (96-108) mmol/L Carbon Dioxide 26 (22-29) mmol/L Anion Gap 16 (12-20) BUN 19 H D (9-16) mg/dL Creatinine 1.39 (0.5-1.4) mg/dL Estim Creat Clear Calc 65.2 Estimated GFR 46 Random Glucose 109 (60-115) mg/dL Calcium 9.6 (8.4-10.2) mg/dL Total Bilirubin 0.2 (0.0-1.0) mg/dL AST 18 (5-31) U/L ALT 19 (0-31) U/L Alkaline Phosphatase 90 (39-117) U/L Total Protein 7.2 (6.5-8.0) g/dL Albumin 4.1 (3.5-5.0) g/dL Urine Color Yellow Urine Appearance Clear Urine pH 6.5 (5.0-9.0) Ur Specific [place] >= 1.030 H (1.005-1.025) Urine Protein Negative (Neg-Trace) mg/dL Urine Glucose (UA) Negative (Negative) mg/dL Urine Ketones Trace (Negative) mg/dL Urine Blood Negative (Negative) Urine Nitrite Negative (Negative) Ur Leukocyte Esterase Trace H (Negative) Urine RBC 0-2 (0-2) /HPF Urine WBC 0-5 (0-5) /HPF Ur Squamous Epith Cells 0-2 (0-2) /HPF Urine Bacteria None Seen (None Seen) Hyaline Casts 0-2 (0-2) /LPF Urine Test (NEGATIVE) 12/03/21 Range/Units 21:05 WBC (4.8-10.8) X10*3/uL RBC (4.20-5.50) X10*6/uL Hgb (12.0-16.0) g/dl Hct (37.0-47.0) % MCV (80.0-98.0) fL MCH (27.0-33.0) pg MCHC (31.0-35.0) g/dl RDW (11.0-16.0) % Plt Count (160-400) X10*3/uL MPV (9.4-12.3) fL Absolute Nucleated RBC (0.0-0.012) X10*3/uL Nucleated RBC % (auto) (0.0-0.2) /100WBC Sodium (135-145) mmol/L Potassium (3.3-5.1) mmol/L Chloride (96-108) mmol/L Carbon Dioxide (22-29) mmol/L Anion Gap (12-20) BUN (9-16) mg/dL Creatinine (0.5-1.4) mg/dL Estim Creat Clear Calc Estimated GFR Random Glucose (60-115) mg/dL Calcium (8.4-10.2) mg/dL Total Bilirubin (0.0-1.0) mg/dL AST (5-31) U/L ALT (0-31) U/L Alkaline Phosphatase (39-117) U/L Total Protein (6.5-8.0) g/dL Albumin (3.5-5.0) g/dL Urine Color Urine Appearance Urine pH (5.0-9.0) Ur Specific [place] (1.005-1.025) Urine Protein (Neg-Trace) mg/dL Urine Glucose (UA) (Negative) mg/dL Urine Ketones (Negative) mg/dL Urine Blood (Negative) Urine Nitrite (Negative) Ur Leukocyte Esterase (Negative) Urine RBC (0-2) /HPF Urine WBC (0-5) /HPF Ur Squamous Epith Cells (0-2) /HPF Urine Bacteria (None Seen) Hyaline Casts (0-2) /LPF Urine Test NEGATIVE (NEGATIVE) Discharge Plan Discharge Clinical Impression: Ureterolithiasis, Constipation, UTI (urinary tract infection) Patient Disposition: Home, Self-Care Instructions: Constipation (ED), Kidney Stones (ED), Urinary Tract Infection in Women (ED) Additional Instructions: Please follow-up with your primary care physician tomorrow. If you have any worsening or new symptoms, please return to the emergency room or call 911 Prescriptions: New ketorolac 10 mg tablet 10 mg PO TID PRN (Reason: pain) Qty: 10 0RF Rx Instructions: do not use this medication with naproxen, Aleve on any NSAIDs tamsulosin 0.4 mg capsule 0.4 mg PO DAILY Qty: 10 0RF nitrofurantoin monohyd/m-cryst [Macrobid] 100 mg capsule 100 mg PO Q12H 7 Days Qty: 14 0RF Rx Instructions: must administer with a meal/food polyethylene glycol 3350 [Miralax] 17 gram/dose powder 17 g PO BID Qty: 510 0RF No Action cyclobenzaprine 10 mg tablet 5 mg PO BEDTIME PRN (Reason: muscle spasm) Qty: 7 0RF naproxen 500 mg tablet 500 mg PO BID PRN (Reason: pain) Qty: 10 0RF ondansetron 4 mg tablet,disintegrating 4 mg PO Q8H PRN (Reason: nausea and vomiting) Qty: 7 0RF tamsulosin 0.4 mg capsule 0.4 mg PO BEDTIME Qty: 5 0RF oxycodone 5 mg tablet 5 mg PO Q6H PRN (Reason: pain) Qty: 10 0RF Rx Instructions: Partial Fill upon patient request. Referrals: Jann Swanson MD [Physician] - 2 days Stand Alone Forms: Work/School Release
[2021-12-04] MEDS: Ketorolac Tromethamine 60 MG/2 ML VIAL IM (02:54)
--- NOTE | 2021-12-04 04:01 | PC.NURSE ---
Pt a&o, no sob or chest pain. No sign of distress. Reviewed discharge instructions with pt . pt verbalized understanding.
== END 2021-12-04 04:02 | disposition home or self-care (01) ==
PROVIDERS: Emergency Provider Emergency Medicine
DX: N20.1 Calculus of ureter (principal); K59.00 Constipation, unspecified; N39.0 Urinary tract infection, site not specified; M54.50 Low back pain, unspecified; Z79.899 Other long term (current) drug therapy
CPT/HCPCS: 36415; 74176; 80053; 81001; 81025; 85027; 96372; 99284; J1885

== ENCOUNTER → 2021-12-20 08:09 | Outpatient (BNVA) | payer MEDICAID, SELFPAY | PROVIDERS: PCP Registered Nurse; Visit Provider Urology | DX: N20.0 Calculus of kidney (principal) | CPT/HCPCS: 99202 ==

== ENCOUNTER 2022-06-08 15:53 | Outpatient (REF) | payer MEDICAID, SELFPAY ==
--- NOTE | ~2022-06-08 | US_ITS ---
EXAMINATION: US RETROPERITONEAL LIMITED (RENAL ONLY) CLINICAL INFORMATION: Calculus of kidney. COMPARISON: CT abdomen and pelvis 12/04/2021. TECHNIQUE: Real-time imaging of the kidneys. FINDINGS: RIGHT KIDNEY: 9.9 x 4.2 x 4.0 cm (SAG x AP x TRV). The kidney is normal in size, contour, and echogenicity. Renal cortical thickness is normal. No calculi or focal parenchymal lesions. No hydronephrosis. LEFT KIDNEY: 10.1 x 5.4 x 4.6 cm (SAG x AP x TRV). The kidney is normal in size, contour, and echogenicity. Renal cortical thickness is normal. No renal calculi or focal parenchymal lesions. Mild left hydronephrosis is present. Moderate to marked hydronephrosis was present on the 12/04/2021 CT scan at which time there was a punctate calcification in the distal left ureter. BLADDER: Bilateral ureteral jets are demonstrated. US/US renal BI IMPRESSION: Mild left-sided hydronephrosis. No calculi seen.
== END 2022-06-08 15:54 | disposition home or self-care (01) ==
LOC: HO.US 15:53
PROVIDERS: PCP Registered Nurse; Visit Provider Urology
DX: N20.0 Calculus of kidney (principal)
CPT/HCPCS: 76775

== ENCOUNTER → 2022-06-19 15:18 | Outpatient (BNVA) | payer MEDICAID, SELFPAY | PROVIDERS: PCP Registered Nurse; Visit Provider Urology | DX: N20.0 Calculus of kidney (principal); M54.50 Low back pain, unspecified | CPT/HCPCS: 99212 ==

== ENCOUNTER 2022-06-20 10:08 | Emergency (ER) | payer MEDICAID, SELFPAY ==
[2022-06-20 10:14] VITALS: BP 154/91; PULSE 89; RESP 20; TEMP 36.9; O2SAT 100; BMI 31.8
--- NOTE | 2022-06-20 10:49 | ED_ITS ---
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 No fevers, chills. Related Data Previous Rx's Medication Instructions Recorded polyethylene glycol 3350 17 17 g PO BID #510 grams 12/04/21 gram/dose oral powder (Miralax) pyridoxine (vitamin B6) 100 mg 100 mg PO DAILY 90 days #90 tabs 12/20/21 tablet doxycycline monohydrate 100 mg 100 mg PO BID #20 tabs 06/20/22 tablet Allergies Allergy/AdvReac Type Severity Reaction Status Date / Time No Known Allergies Allergy Verified 06/20/22 10:17 Review of Systems Review of Systems: Yes all other systems are reviewed and are negative Constitutional: Constitutional: Reports no additional constitutional complaints, Denies body ache(s), Denies chills, Denies fever(s), Denies headache(s) and Denies weakness Eyes: Eyes: Reports no additional eye complaints and Denies change in vision ENT: Reports system reviewed and no additional complaints, except as documented, Denies dizziness, Denies headache(s), Denies nasal congestion, Denies nasal discharge and Denies neck pain Cardiovascular: Cardiovascular: Reports no additional cardiovascular complaints, Denies chest pain, Denies leg edema and Denies dyspnea Respiratory: Respiratory: Reports no additional respiratory complaints, Denies cough and Denies dyspnea Gastrointestinal: Gastrointestinal: Reports no additional gastrointestinal complaints, Denies abdominal pain, Denies diarrhea, Denies nausea and Denies vomiting Genitourinary: Genitourinary: Reports no additional female genitourinary complaints and Denies urinary incontinence Musculoskeletal: Musculoskeletal: Reports no additional musculoskeletal complaints, Denies back pain, Denies arthralgias, Denies joint swelling, Denies neck pain, Denies numbness and Denies tingling Integumentary/Breasts: Skin/Breast: Reports system reviewed and no additional complaints, except as docu, Reports swelling, Reports erythema and Denies rash Neurologic: Reports system reviewed and no additional complaints, except as documented, Denies Abnormal speech present, Denies dizziness, Denies headache(s), Denies numbness, Denies tingling and Denies weakness [facility] Past Medical History Attestation statement: The following information was validated with the patient. Source: old records reviewed and nursing notes reviewed Medical History Cyst (solitary) of breast Ectopic Kidney stones Surgical History H/O removal of cyst Social History Social History Alcohol intake: current Alcohol intake frequency: does not drink Patient Tobacco Use Status: Never used Tobacco Advance Directives: No Advance Directives Information Provided: Yes Sexual orientation: Straight/Heterosexual Gender identity: Female Physical Exam Vital Signs: Vital Signs: Last Vital Signs Temp 98.5 F 06/20/22 10:14 Pulse 89 06/20/22 10:14 Resp 20 06/20/22 10:14 BP 154/91 H 06/20/22 10:14 Pulse Ox 100 06/20/22 10:14 O2 Del Method Room Air 06/20/22 10:14 BMI result Body Mass Index 31.8 Const: General: cooperative, healthy appearing, comfortable and no acute distress Orientation/consciousness: patient oriented x3 Limitations: no limitations HEENT: Head: Yes normal to inspection Ears: hearing grossly normal bilaterally General nose exam: Normal external nose present Face and sinus: Yes normal facial exam Mouth: Normal oral and palatal mucosa present Throat: Yes posterior oropharynx normal Eyes: General: appearance normal, both eyes and all related structures Pupils: Equal, round and reactive pupils present Neck: Neck: Yes normal visual inspection Chest: Chest palpation & inspection: normal inspection of the chest Resp: Effort & Inspection: normal respiratory effort Auscultation: clear to auscultation bilaterally Cardio: Rate: regular rate Rhythm: regular rhythm Peripheral pulses: Peripheral pulses 2+ throughout GI: Inspection: Yes normal to inspection Palpation (GI): Soft to palpation and nontender Auscultation: normal bowel sounds : Female genitals images: 1. Small abscess with tenderness with mild induration and no fluctuance or pointing. NO bartholian abscess seen Back/Spine/Pelvis: Thoracic/Lumbar Spine: thoracic and lumbar spine normal to inspection Skin: General skin exam: no rashes or lesions noted Neuro: General: patient oriented x3, no focal motor deficits and normal sensation to monofilament Cranial nerves: Yes Equal, round and reactive pupils present Cognition (Neuro): normal cognition Speech: No Abnormal speech present Gait exam (Neuro): Normal gait present Motor exam (neuro): 5/5 motor strength present throughout Extrem: General: Yes normal to inspection Medical Decision Making Medical Decision Making MDM Narrative: 27-year-old female here with left labial abscess for last 4 days. On exam there is a small abscess over the left labia. The site has some mild induration with no fluctuance or pointing. This is not conducive to incision and drainage. There is no Bartholin abscess seen. Does not have the appearance of herpes. Recommend warm compresses, oral antibiotics Differential Diagnosis Differential Diagnoses: The differential diagnosis associated with the presentation includes See above Discharge Plan Discharge Clinical Impression: Abscess of skin or subcutaneous tissue Patient Disposition: Home, Self-Care Instructions: Abscess (ED) Additional Instructions: Compresas calientes cuatro veces al d?a. [place] los antibi?ticos seg?n lo prescrito. Prescriptions: New doxycycline monohydrate 100 mg tablet 100 mg PO BID Qty: 20 0RF No Action polyethylene glycol 3350 [Miralax] 17 gram/dose powder 17 g PO BID Qty: 510 0RF pyridoxine (vitamin B6) 100 mg tablet 100 mg PO DAILY 90 Days Qty: 90 1RF Referrals: Otilia Carbone FNP [Primary Care Provider] - 1 week Stand Alone Forms: Work/School Release Interventions: ED Discharge Assessment Last Done: 06/20/22 11:15 Discharge Date/Time: 06/20/22 11:23 Print Language: Belarusian
== END 2022-06-20 11:23 | disposition home or self-care (01) ==
PROVIDERS: Emergency Provider Emergency Medicine; PCP Registered Nurse
DX: N76.4 Abscess of vulva (principal)
CPT/HCPCS: 99282; 99283

== ENCOUNTER 2022-11-01 11:58 | Emergency (ER) | payer MEDICAID, SELFPAY ==
--- NOTE | ~2022-11-01 | XR_ITS ---
EXAMINATION: XR CHEST CLINICAL INFORMATION: Chest pain. COMPARISON: None available. TECHNIQUE: 2 views of the chest were obtained. FINDINGS: No significant abnormality is noted involving the heart, lungs, mediastinum, bony thorax or soft tissues. XR/XR chest 2V IMPRESSION: No acute cardiopulmonary process.
--- NOTE | 2022-11-01 12:05 | ED.GENADULT ---
HPI - General Adult General Chief complaint: General Medical Stated complaint: tachycardia, numb face Related Data Previous Rx's Medication Instructions Recorded polyethylene glycol 3350 17 17 g PO BID #510 grams 12/04/21 gram/dose oral powder (Miralax) pyridoxine (vitamin B6) 100 mg 100 mg PO DAILY 90 days #90 tabs 12/20/21 tablet doxycycline monohydrate 100 mg 100 mg PO BID #20 tabs 06/20/22 tablet Allergies Allergy/AdvReac Type Severity Reaction Status Date / Time No Known Allergies Allergy Verified 06/20/22 10:17 [facility] Past Medical History Medical History Cyst (solitary) of breast Ectopic Kidney stones Surgical History H/O removal of cyst Social History Social History Alcohol intake: current Alcohol intake frequency: does not drink Patient Tobacco Use Status: Never used Tobacco Advance Directives: No Advance Directives Information Provided: No Sexual orientation: Straight/Heterosexual Gender identity: Female Physical Exam ED Vital Signs: Vital Signs - 24 hr 11/01/22 12:06 Temperature 98.6 F Pulse Rate 73 Respiratory Rate 18 Blood Pressure 127/68 Pulse Oximetry 95 Oxygen Delivery Method Room Air BMI result Body Mass Index 32.9 Course Course Course Narrative: RME - 27 yo Divehi speaking female presents to the ER for evaluation of numbness sensation in her jaw that started at 10am today. She also reports tachycardia & palpations for the last several months, which she is waiting to hear from Cardiology for an appointment. She also endorses intermittent chest pains for the last several months as well. Neuro exam nonfocal in triage. VSS, HR 90s. She is c/o palpitations. Plan: EKG, CXR, labs Reevaluation(s) Reevaluation #1: patient eloped from the ER prior to full evaluation and treatment Medical Decision Making Lab Data 11/01/22 12:27 11/01/22 12:27 Labs: Lab Results 11/01/22 11/01/22 11/01/22 Range/Units 12:27 12:27 12:27 WBC 5.4 (4.8-10.8) X10*3/uL RBC 4.80 (4.20-5.50) X10*6/uL Hgb 12.2 (12.0-16.0) g/dl Hct 39.7 (37.0-47.0) % MCV 82.7 (80.0-98.0) fL MCH 25.4 L (27.0-33.0) pg MCHC 30.7 L (31.0-35.0) g/dl RDW 14.4 (11.0-16.0) % Plt Count 136 L (160-400) X10*3/uL MPV 12.4 H (9.4-12.3) fL Immature Gran % (Auto) Cancelled Neut % (Auto) Cancelled Lymph % (Auto) Cancelled [place] % (Auto) Cancelled Eos % (Auto) Cancelled Baso % (Auto) Cancelled Lymph # (Auto) Cancelled [place] # (Auto) Cancelled Eos # (Auto) Cancelled Baso # (Auto) Cancelled Abs Immat Gran (auto) Cancelled Absolute Neuts (auto) Cancelled Absolute Nucleated RBC 0.000 (0.0-0.012) X10*3/uL Nucleated RBC % (auto) 0.0 (0.0-0.2) /100WBC Neutrophils % (Manual) 64 (45-73) % Band Neutrophils % 0 L (3-5) % Lymphocytes % (Manual) 32 (20-40) % Monocytes % (Manual) 3 (2-11) % Basophils % (Manual) 1 (0-2) % Abs Neuts (Manual) 3.5 (2.0-8.3) X10*3/uL Lymphocytes # (Manual) 1.7 (1.2-4.9) X10*3/uL Monocytes # (Manual) 0.2 (0.1-1.2) X10*3/uL Basophils # (Manual) 0.1 (0.0-0.2) X10*3/uL Platelet Estimate SLIGHTLY DECREASED (NORMAL) Plt Morphology Comment NOTED RBC Morphology NOTED Hypochromasia 1+ (5-14) /OIF [place] Cells 1+ (0-2) /OIF Sodium 141 (135-145) mmol/L Potassium 4.2 (3.3-5.1) mmol/L Chloride 106 (96-108) mmol/L Carbon Dioxide 27 (22-29) mmol/L Anion Gap 12 (12-20) BUN 12 (9-16) mg/dL Creatinine 0.97 (0.5-1.4) mg/dL Estim Creat Clear Calc 90.4 Estimated GFR > 60 Random Glucose 94 (60-115) mg/dL Calcium 10.2 D (8.4-10.2) mg/dL Magnesium 1.9 (1.6-2.6) mg/dL Total Bilirubin 0.3 (0.0-1.0) mg/dL Direct Bilirubin 0.1 (0.0-0.5) mg/dL AST 17 (5-31) U/L ALT 15 (0-31) U/L Alkaline Phosphatase 83 (39-117) U/L Troponin I High Sens < 2.7 (<3.5-17.0) ng/L Total Protein 7.6 (6.5-8.0) g/dL Albumin 4.3 (3.5-5.0) g/dL TSH 1.21 (0.32-4.0) uIU/mL Discharge Plan Discharge Clinical Impression: Palpitations, Perioral numbness Patient Disposition: Elopement Prescriptions: No Action polyethylene glycol 3350 [Miralax] 17 gram/dose powder 17 g PO BID Qty: 510 0RF doxycycline monohydrate 100 mg tablet 100 mg PO BID Qty: 20 0RF pyridoxine (vitamin B6) 100 mg tablet 100 mg PO DAILY 90 Days Qty: 90 1RF
[2022-11-01 12:06] VITALS: BP 127/68; PULSE 73; RESP 18; TEMP 37; O2SAT 95; BMI 32.9
--- NOTE | 2022-11-01 12:12 | ECG_ITS ---
Test Reason : chest pain Blood Pressure : / mmHG Vent. Rate : 081 BPM Atrial Rate : 081 BPM P-R Int : 144 ms QRS Dur : 078 ms QT Int : 356 ms P-R-T Axes : 067 065 040 degrees QTc Int : 413 ms Normal sinus rhythm Normal ECG When compared with ECG of 24-MAY-2021 00:43, No significant change was found Referred By: Britta Napier Electronically Signed By:Everton Mi
[2022-11-01 12:32] LABS: Hematocrit 39.7 % (37.0-47.0); Hemoglobin 12.2 g/dl (12.0-16.0); Mean Corpuscular HGB Conc 30.7 g/dl (31.0-35.0); Mean Corpuscular Hemoglobin 25.4 pg (27.0-33.0); Mean Corpuscular Volume 82.7 fL (80.0-98.0); Mean Platelet Volume 12.4 fL (9.4-12.3); Platelet Count 136 X10*3/uL (160-400); Red Cell Distribution Width 14.4 % (11.0-16.0)
[2022-11-01 12:36] LABS: WBC ABN SCTR FOR CBC 1; White Blood Count 5.4 X10*3/uL (4.8-10.8)
[2022-11-01 12:55] LABS: Alanine Aminotransferase 15 U/L (0-31); Albumin Level 4.3 g/dL (3.5-5.0); Alkaline Phosphatase 83 U/L (39-117); Anion Gap 12 (12-20); Aspartate Amino Transferase 17 U/L (5-31); Bilirubin Direct 0.1 mg/dL (0.0-0.5); Bilirubin Total 0.3 mg/dL (0.0-1.0); Blood Urea Nitrogen 12 mg/dL (9-16); Calcium 10.2 mg/dL (8.4-10.2); Carbon Dioxide 27 mmol/L (22-29); Chloride 106 mmol/L (96-108); Creatinine Clr Calc Pharmacy 90.4; Estimated Glomerular Filt Rate > 60; Glucose Random 94 mg/dL (60-115); Magnesium 1.9 mg/dL (1.6-2.6); Potassium 4.2 mmol/L (3.3-5.1); Sodium 141 mmol/L (135-145); Total Protein 7.6 g/dL (6.5-8.0)
[2022-11-01 12:58] LABS: Troponin-I High Sensitivity < 2.7 ng/L (<3.5-17.0)
[2022-11-01 13:00] LABS: Band Neutrophils Percent 0 % (3-5); Basophils Abs Manual 0.1 X10*3/uL (0.0-0.2); Basophils Percent Manual 1 % (0-2); Lymphocytes Absolute Manual 1.7 X10*3/uL (1.2-4.9); Lymphocytes Percent Manual 32 % (20-40); Monocytes Absolute Manual 0.2 X10*3/uL (0.1-1.2); Monocytes Percent Manual 3 % (2-11); Neutrophils Absolute Manual 3.5 X10*3/uL (2.0-8.3); Neutrophils Percent Manual 64 % (45-73)
[2022-11-01 13:01] LABS: Platelet Estimate SLIGHTLY DECREASED (NORMAL); Platelet Morphology Comment NOTED
[2022-11-01 13:03] LABS: Burr Cells 1+ (0-2) /OIF; Hypochromasia 1+ (5-14) /OIF; RBC Morphology NOTED
[2022-11-01 13:10] LABS: TSH reflex Free T4 1.21 uIU/mL (0.32-4.0)
== END 2022-11-01 17:20 | disposition left against medical advice (07) ==
PROVIDERS: Physician Assistant; Emergency Provider Emergency Medicine; PCP Registered Nurse
DX: R00.0 Tachycardia, unspecified (principal); R00.2 Palpitations; R20.0 Anesthesia of skin; Z79.899 Other long term (current) drug therapy
CPT/HCPCS: 36415; 71046; 80048; 80076; 83735; 84443; 84484; 85007; 85027; 93005; 99283

== ENCOUNTER → 2022-11-01 12:12 | Outpatient (BNV) | payer MEDICAID, SELFPAY | PROVIDERS: Emergency Provider Emergency Medicine; PCP Registered Nurse; Visit Provider Internal Medicine Cardiovascular Disease | DX: R07.9 Chest pain, unspecified (principal) | CPT/HCPCS: 93010 ==

== ENCOUNTER 2023-03-15 10:36 | Outpatient (REF) | payer MEDICAID, OTHER, SELFPAY ==
[2023-03-15 11:43] LABS: HCG Quantitative 3827 mIU/mL
== END 2023-03-15 10:37 | disposition home or self-care (01) ==
LOC: HO.HHCL 10:36
PROVIDERS: Visit Provider Advanced Practice Midwife
DX: O02.9 Abnormal product of conception, unspecified (principal)
CPT/HCPCS: 36415; 84702; 86900; 86901

== ENCOUNTER 2023-03-15 10:58 | Outpatient (REF) | payer MEDICAID, OTHER, SELFPAY ==
--- NOTE | ~2023-03-15 | US_ITS ---
EXAMINATION: US OBSTETRICAL ULTRASOUND CLINICAL INFORMATION: Bleeding in early with history of ectopic COMPARISON: None available. LMP: 01/31/2023. Gestational age by maternal dates is 6 weeks 1 day. Estimated date of delivery by maternal dates is 11/07/2023. TECHNIQUE: Both transabdominal and endovaginal scanning was performed. FINDINGS: There is a tiny irregularly-shaped gestational sac in the endometrial cavity which has a size which would correspond to a gestation of 5 weeks 2 days. During the course of the exam, irregularly shaped sac appears to have migrated a bit towards the cervix, possibly indicative of an in process. No pole is seen. No yolk sac is identified. MATERNAL ADNEXA: The right maternal ovary measures 4.7 x 3.3 x 2.7 cm. Involuting corpus luteal cyst present measuring 2.1 x 2.1 x 2.0 cm. The left maternal ovary measures 4.1 x 2.0 x 2.3 cm. There is no significant maternal adnexal mass. There is a tiny amount of free intraperitoneal fluid. US/US OB pelvic and transvaginal IMPRESSION: A pole was not seen within a regularly shaped gestational sac. Findings suggest in process. Continue monitoring of hCG with use of additional ultrasound as necessary.
== END 2023-03-15 10:59 | disposition home or self-care (01) ==
LOC: HO.US 10:58
PROVIDERS: Visit Provider Advanced Practice Midwife
DX: O20.9 Hemorrhage in early pregnancy, unspecified (principal); Z87.59 Personal history of other complications of pregnancy, childbirth and the puerperium
CPT/HCPCS: 36415; 76801; 76817; 84702; 86900; 86901

== ENCOUNTER 2023-03-16 08:32 | Outpatient (REF) | payer MEDICAID, OTHER, SELFPAY ==
[2023-03-17 07:59] LABS: HCG Tumor Marker 4689 mIU/mL
== END 2023-03-16 08:33 | disposition home or self-care (01) ==
LOC: HO.HHCL 08:32
PROVIDERS: Visit Provider Advanced Practice Midwife
DX: Q20.9 Congenital malformation of cardiac chambers and connections, unspecified (principal)
CPT/HCPCS: 36415; 84702

== ENCOUNTER 2023-03-20 08:47 | Outpatient (REF) | payer MEDICAID, OTHER, SELFPAY ==
[2023-03-20 11:55] LABS: HCG Quantitative 9092 mIU/mL
== END 2023-03-20 08:48 | disposition home or self-care (01) ==
LOC: HO.HHCL 08:47
PROVIDERS: Visit Provider Advanced Practice Midwife
DX: Q20.9 Congenital malformation of cardiac chambers and connections, unspecified (principal)
CPT/HCPCS: 36415; 84702

== ENCOUNTER 2023-03-21 12:55 | Outpatient (REF) | payer MEDICAID, OTHER, SELFPAY ==
--- NOTE | ~2023-03-21 | US_ITS ---
EXAMINATION: US OBSTETRICAL ULTRASOUND CLINICAL INFORMATION: Bleeding in early COMPARISON: None available. LMP: /10/2022. Gestational age by maternal dates is 7 weeks 0 days. Estimated date of delivery by maternal dates is 11/07/2023. TECHNIQUE: Real-time ultrasound used to interrogate the gravid uterus. Permanent documented images obtained. FINDINGS: There is a single, slightly irregular intrauterine gestational sac. Visible yolk sac, embryo/fetus, and cardiac activity. There is no significant subchorionic hemorrhage or hematoma but endometrial echogenicity likely blood products, patient actively bleeding during study. 0.8 x 0.6 x 1.2 cm posterior uterine fibroid is seen. HR: 118 beats per minute. CRL (crown rump length): 0.31 cm (6 weeks 0 days +/- 4 days). NITHIN (estimated date of delivery): 11/14/2023 +/- 4 days. MATERNAL ADNEXA: The right maternal ovary measures 3.7 x 2.1 x 2.1 cm. Corpus luteum cyst measuring 2.2 x 2.4 x 1.6 cm identified. The left maternal ovary measures 3.2 x 1.7 x 2.5 cm. There is no significant maternal adnexal mass. No maternal pelvic ascites. US/US OB pelvic and transvaginal IMPRESSION: Single intrauterine gestation with ultrasound gestational age of 6 weeks 0 days +/- 4 days, estimated date of delivery 11/14/2023, +/- 4 days. Heart rate of 118 bpm. Slightly irregular gestational sac with slight discrepant gestational age measuring 5 weeks 4 days. Endometrial echogenicity suspicious for blood products. Continued close clinical and sonographic surveillance recommended.
== END 2023-03-21 12:56 | disposition home or self-care (01) ==
LOC: HO.US 12:55
PROVIDERS: Visit Provider Advanced Practice Midwife
DX: O20.9 Hemorrhage in early pregnancy, unspecified (principal)
CPT/HCPCS: 76801; 76817

== ENCOUNTER 2023-03-24 23:10 | Emergency (ER) | payer MEDICAID, OTHER, SELFPAY | END 2023-03-25 01:23 | disposition left against medical advice (07) | PROVIDERS: Emergency Provider Emergency Medicine | DX: O26.90 Pregnancy related conditions, unspecified, unspecified trimester (principal); Z3A.00 Weeks of gestation of pregnancy not specified ==

== ENCOUNTER 2023-03-28 15:26 | Outpatient (REF) | payer MEDICAID, SELFPAY | END 2023-03-28 15:27 | disposition home or self-care (01) | LOC: HO.HHCL 15:26 | PROVIDERS: Visit Provider Advanced Practice Midwife | DX: O20.9 Hemorrhage in early pregnancy, unspecified (principal) | CPT/HCPCS: 36415; 84702 ==

== ENCOUNTER 2023-05-24 14:45 | Outpatient (REF) | payer MEDICAID, SELFPAY ==
[2023-05-24 16:52] LABS: HCG Quantitative 4 mIU/mL
== END 2023-05-24 14:46 | disposition home or self-care (01) ==
LOC: HO.HHCL 14:45
PROVIDERS: Visit Provider Advanced Practice Midwife
DX: N93.9 Abnormal uterine and vaginal bleeding, unspecified (principal); N96 Recurrent pregnancy loss
CPT/HCPCS: 36415; 84702

== ENCOUNTER → 2023-11-20 14:10 | Outpatient (RCR) | payer MEDICAID, SELFPAY ==
[2020-01-21 15:09] VITALS: BMI 29.3
== END | disposition home or self-care (01) ==
LOC: HO.ONC 01-21 15:07
PROVIDERS: Visit Provider Obstetrics & Gynecology
DX: O00.90 Unspecified ectopic pregnancy without intrauterine pregnancy (principal)
CPT/HCPCS: 96401; J9250

== ENCOUNTER 2024-11-21 13:57 | Emergency (ER) | payer MEDICAID, SELFPAY ==
--- NOTE | 2024-11-21 | ECG_ITS ---
Test Reason : CHEST PAIN Blood Pressure : */* mmHG Vent. Rate : 94 BPM Atrial Rate : 94 BPM P-R Int : 142 ms QRS Dur : 78 ms QT Int : 348 ms P-R-T Axes : 64 66 42 degrees QTcB Int : 435 ms Normal sinus rhythm Normal ECG When compared with ECG of 01-Nov-2022 12:18, No significant change was found Referred By: Generic ED Physician Electronically Signed By: KALIA REGALADO
--- NOTE | ~2024-11-21 | XR_ITS ---
EXAMINATION: XR CHEST CLINICAL INFORMATION: chest pain COMPARISON: November 01, 2022 TECHNIQUE: 2 views of the chest were obtained. FINDINGS: No significant abnormality is noted involving the heart, lungs, mediastinum, bony thorax or soft tissues. XR/XR chest 2V IMPRESSION: No acute disease Electronically signed by: Reggie Hodge MD 11/21/2024 03:38 PM EDT RP
[2024-11-21 14:27] VITALS: BP 142/89; PULSE 97; RESP 16; TEMP 36.8; O2SAT 98; BMI 33.7
--- NOTE | 2024-11-21 14:27 | ED.GENADULT ---
HPI - General Adult General Chief complaint: Upper Respiratory Symptoms Stated complaint: CP, SOB Time Seen by Provider: 11/21/24 15:03 Source: patient Mode of arrival: ambulatory Limitations: no limitations History of Present Illness ED Provider: [place] ABERNATHY narrative: 29 yo female with PMH of rosacea, not on OCPs no recent travel or procedures presents with headaches, nausea, fatigue, L sided chest pain. She is asking for pregancy test. She notes she is very tired and this happens when she goes up stairs. She denies bleeding, URI symptoms. She has no known hx of heart problems and no family issues. She has never had this before. It has been one week. No preceding viral illness. MD complaint: multi complaints Onset (ago): day(s) (7) Location: head, neck and chest Radiation: non-radiation Severity: moderate Quality: dull Pain Consistency: intermittent Relieving factors: none Exacerbating factors: movement Associated symptoms: nausea/vomiting, shortness of breath and weakness Treatments prior to arrival: none Related Data Previous Rx's ?Medication ?Instructions ?Recorded polyethylene glycol 3350 17 17 g PO BID #510 grams 12/04/21 gram/dose oral powder (Miralax) pyridoxine (vitamin B6) 100 mg 100 mg PO DAILY 90 days #90 tabs 12/20/21 tablet doxycycline monohydrate 100 mg 100 mg PO BID #20 tabs 06/20/22 tablet Allergies Allergy/AdvReac Type Severity Reaction Status Date / Time No Known Allergies Allergy Verified 11/21/24 14:31 Review of Systems Review of Systems: Constitutional : No Weight loss, No Fever, No Chills, pos fatigue ENT/Mouth : No sore throat, No Rhinorrhea Eyes: No Eye Pain, No Swelling Cardiovascular : pos Chest Pain, pos SOB, pos Dyspnea on Exertion, No Orthopnea, No Edema, No Palpitations Respiratory : No Cough, No Sputum Gastrointestinal : pos Nausea, No Vomiting, No Diarrhea, No abdominal Pain, No Hematochezia, No Melena Genitourinary : No Dysuria, No Urinary Frequency Musculoskeletal : No joint pain, No Myalgias, No Joint Swelling Skin : No Skin Lesions, No rash All other systems reviewed and are negative PMFSH Past Medical History Attestation statement: The following information was validated with the patient. Source: old records reviewed Medical History Kidney stones Ectopic Cyst (solitary) of breast Surgical History H/O removal of cyst Social History Social History Alcohol intake: current Alcohol intake frequency: does not drink Patient Tobacco Use Status: Never used Tobacco Smoked in Last 30 Days: No Use of substances other than those prescribed or required for medical reasons: No Advance Directives: No Advance Directives Information Provided: Yes Patient : No Sexual orientation: Straight/Heterosexual Gender identity: Female Physical Exam ED Vital Signs: Vital Signs - 24 hr 11/21/24 14:27 11/21/24 14:41 11/21/24 14:41 Temperature 98.2 F 98.2 F Pulse Rate 97 97 Respiratory Rate 16 16 Blood Pressure 142/89 H 142/89 H Pulse Oximetry 98 98 98 Oxygen Delivery Method Room Air Room Air Room Air BMI result Body Mass Index 33.7 Appearance: Alert. Oriented X3. No acute distress. Eyes: Pupils equal, round and reactive to light. ENT: Pharynx normal. Neck: Normal inspection. Neck supple. CVS: Normal heart rate and rhythm. Pulses normal. Respiratory: No respiratory distress. Breath sounds normal. Abdomen: Soft and nontender. Skin: Skin warm and dry. Normal skin color. Normal skin turgor. Extremities: No lower extremity edema. No calf ttp Neuro: Oriented X 3. No motor deficit. No sensory deficit. CN2-12 intact Course Course Course Narrative: RME, this is a rapid medical exam performed by Solitario Kumar please refer to primary provider for complete H&P- 29 year old female presents for evaluation of chest pain and headache. She also complains of nausea. Plan for labs, viral swabs, urinalysis Medical Decision Making Medical Decision Making MDM Narrative: 29 yo female with PMH of rosacea but not on any medications reports she feels chest pressure, MARCOS and symptoms walking she is very tired. She is PERC negative has intact pulses doubt dissection. She has no risk factors for ACS. She will is asking for a test - she denies heavy bleeding or any infectious URI symptoms. At this time will obtain basic labs, trop, EKG, quant and CBC eval. Could be anemia, fatigue, , dehydration Differential Diagnosis Differential Diagnoses: The differential diagnosis associated with the presentation includes anemia, fatigue, , dehydration Heart score is 0 she is PERC negative Admission/Observation Consideration of admission/observation: Escalation of care including admission/observation considered work up reassuring stable for DC Lab Data MDM Lab Attestation statement: I reviewed the patient's lab results. 11/21/24 15:05 11/21/24 15:05 Labs: Lab Results 11/21/24 11/21/24 Range/Units 15:05 15:31 WBC 5.9 (4.8-10.8) X10*3/uL RBC 4.94 (4.20-5.50) X10*6/uL Hgb 13.0 (12.0-16.0) g/dl Hct 40.3 (37.0-47.0) % MCV 81.6 (80.0-98.0) fL MCH 26.3 L (27.0-33.0) pg MCHC 32.3 (31.0-35.0) g/dl RDW 14.6 (11.0-16.0) % Plt Count 154 L (160-400) X10*3/uL MPV 13.5 H (9.4-12.3) fL Immature Gran % (Auto) 0.3 (0.0-0.4) % Neut % (Auto) 62.0 (45-73) % Lymph % (Auto) 27.9 (20-40) % [place] % (Auto) 8.3 (2-11) % Eos % (Auto) 0.8 (0-4) % Baso % (Auto) 0.7 (0-2) % Lymph # (Auto) 1.7 (1.2-4.9) X10*3/uL [place] # (Auto) 0.5 (0.1-1.2) X10*3/uL Eos # (Auto) 0.1 (0.0-0.4) X10*3/uL Baso # (Auto) 0.0 (0.0-0.2) X10*3/uL Abs Immat Gran (auto) 0.02 (0.00-0.03) X10*3/uL Absolute Neuts (auto) 3.7 (2.0-8.3) x10*3/uL Absolute Nucleated RBC 0.000 (0.0-0.012) X10*3/uL Nucleated RBC % (auto) 0.0 (0.0-0.2) /100WBC Sodium 139 (135-145) mmol/L Potassium 4.4 (3.3-5.1) mmol/L Chloride 106 (96-108) mmol/L Carbon Dioxide 25 (22-29) mmol/L Anion Gap 12 (12-20) BUN 15 (9-16) mg/dL Creatinine 0.85 (0.5-1.4) mg/dL Estim Creat Clear Calc 102.6 Estimated GFR > 60 Random Glucose 88 (60-115) mg/dL Calcium 9.8 (8.4-10.2) mg/dL Total Bilirubin 0.3 (0.0-1.0) mg/dL AST 24 (5-31) U/L ALT 21 (0-31) U/L Alkaline Phosphatase 104 (39-117) U/L Troponin I High Sens < 2.7 (<3.5-17.0) ng/L Total Protein 7.7 (6.5-8.0) g/dL Albumin 4.6 (3.5-5.0) g/dL Lipase 25 (8-78) U/L Beta HCG, Quant < 2 mIU/mL Urine Color Yellow Urine Appearance Clear Urine pH 6.0 (5.0-9.0) Ur Specific Omega 1.025 (1.005-1.025) Urine Protein Negative (Neg-Trace) mg/dL Urine Glucose (UA) Negative (Negative) mg/dL Urine Ketones Negative (Negative) mg/dL Urine Blood Small (1+) H (Negative) Urine Nitrite Negative (Negative) Ur Leukocyte Esterase Trace H (Negative) Urine RBC 0-2 (0-2) /HPF Urine WBC 6-10 H (0-5) /HPF Ur Squamous Epith Cells 6-10 (0-2) /HPF Urine Bacteria 1+ (None Seen) Hyaline Casts 0-2 (0-2) /LPF COVID-19 (BIBI) Negative (Negative) COVID-19 Clin Com See Note Influenza Type A (EDIL) Negative (Negative) Influenza Type B (EDIL) Negative (Negative) Influenza A & B Note See Note Independent Interpretation I performed an independent interpretation of an: EKG and Plain X-Ray (normal ) Interpretation: Rate: 94 Rhythm: NSR [place]: normal Normal P waves. Normal DESIRAE. Normal QRS complex. ST T wave : no SUSIE, inverted t waves V1 qTC: 435 prior studies: no acute ischemia The study has been interpreted contemporaneously by me. . Radiology Impression Discussion of test interpretation with radiology: I have reviewed the radiologist's reading. External Record Review External record reviewed: Outpatient record Prescription Management I considered prescription management with: Other Discharge Plan Discharge Clinical Impression: Atypical chest pain, MARCOS (dyspnea on exertion) Patient Disposition: Home, Self-Care Instructions: Chest Pain (ED), Dyspnea (ED) Additional Instructions: labs and EKG, chest xray reassuring negative test no anemia return for any worsening symptoms or concerns rest and stay hydrated follow up with your primary care doctor Prescriptions: No Action polyethylene glycol 3350 [Miralax] 17 gram/dose powder 17 g PO BID Qty: 510 0RF doxycycline monohydrate 100 mg tablet 100 mg PO BID Qty: 20 0RF pyridoxine (vitamin B6) 100 mg tablet 100 mg PO DAILY 90 Days Qty: 90 1RF Print Language: [place] Citizen
[2024-11-21 14:41] VITALS: BP 142/89; PULSE 97; RESP 16; TEMP 36.8; O2SAT 98
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
--- OUTSIDE RECORDS SUMMARY | 2024-11-21 14:43 | XMS_ITS | Encounter Summary ---
Author Organization [employer] Address [address] [facility] [address] [place] [address] Care Team Providers Care Pumpman Name Role Phone Lucila Burns MD Primary Care Pro vider Encounter Details Date Type Department Care Team (Late st Contact Info) Description 03/16/2023 Abstract [facility] MEDICINE [address] [place] [address] Lucila Burns MD [address] [place] [address] Social History Tobacco Use Types Packs/Day Years Used Date Smoking Tobacco: Never Passive Smoke Exposure: Never Smokeless Tobacco: Never Alcohol Use Standard Drinks/Week Comments Never 0 (1 standard drink = 0.6 oz [...] Patient Health Questionnaire-2 Score 5 02/12/2023 Comments Yes Sex and Gender Information Value Date Recorded Sex Assigned at Female 01/23/2022 10:37 AM EDT Legal Sex Female 10:37 AM EDT Gender Identity Female 01/23/2022 10:37 AM EDT Sexual Orientation Don't know 01/23/2022 10 :37 AM EDT documented as of this encounter Plan of Treatment Not on file documented as of this encounter Visit Diagnoses Not on filedocumented in this encounter Additional Health Concerns Assessment Noted Time PHQ-9 Depression Total Score: 10 023 12:43 PM EST documented as of this encounter Care Teams Pumpman Relationship Specialty Start Date End Date Lucila Burns MD [address] [place] [id number] PCP - General Internal Medicine 12/27/22 documented as of this encounter
--- OUTSIDE RECORDS SUMMARY | 2024-11-21 14:43 | XMS_ITS | Encounter Summary ---
Author Organization [employer] [facility] Address [address] [facility] [address] [place] [address] Care Team Providers Care Medical Pathologist Name Role Phone Otilia Carbone IMAGER Primary Care Provider Lucila Mendez MD Primary Care Pro vider Encounter Details Date Type Department Care Team (Late st Contact Info) Description 12/19/2022 Orders Only [facility] MEDICINE [address] [place] [address] Provider, Historical, Social History Tobacco Use Types Packs/Day Years Used Date Smoking Tobacco: Never Passive Smoke Exposure: Never Smokeless Tobacco: Never Alcohol Use Standard Drinks/Week Comments Never 0 (1 standard drink = 0.6 oz pur e alcohol) Depression Answer Date Recorded Patient Health Questionnaire-9 Score 0 06/22/2022 Depression Answer Date Recorded Patient Health Questionnaire-2 Score 0 06/22/2022 Comments No Sex and Gender Information Value Date Recorded Sex Assigned at Female 01/23/2022 10:37 AM EDT Legal Sex Female 10:37 AM EDT Gender Identity Female 01/23/2022 10:37 AM EDT Sexual Orientation Don't know 01/23/2022 10 :37 AM EDT documented as of this encounter Plan of Treatment Not on file documented as of this encounter Procedures Procedure Name Priority Date/Time Associated Diagnosis Comments HM PAP/HPV Routine 02/03/2021 documented in this encounter Results * Hm Pap Smear (02/03/2021) us Historical Provider HEALTH MAINTENANCE Final Result documented in this encounter Visit Diagnoses Not on filedocumented in this encounter Additional Health Concerns Assessment Noted Time PHQ-9 Depression Total Score: 0 06/23/19 23 4:00 PM EDT documented as of this encounter Care Teams Medical Pathologist Relationship Specialty Start Date End Date Otilia Carbone FNP PCP - General Family Medicine 01/06/21 12/26/22 Lucila Burns MD [address] [place] [id number] PCP - General Internal Medicine 12/27/22 documented as of this encounter
--- OUTSIDE RECORDS SUMMARY | 2024-11-21 14:43 | XMS_ITS | Encounter Summary ---
Author Organization [employer] Address [address] [facility] 7[address] [place] [address] Care Team Providers Care Supervisor Dairy Sanitation Name Role Phone Lucila Burns MD Primary Care Pro vider Reason for Visit * Reason Onset Date Comments Appointment Request 05/11/2023 Encounter Details Date Type Department Care Team ([facility] st Contact Info) Description 05/11/2023 Telephone [facility] MEDICINE [address] [place] [address] Lucila Burns MD [address] [place] [address] Appointment Request Social History Tobacco Use Types Packs/Day Years [...] AM EDT documented as of this encounter Miscellaneous Notes * Telephone Encounter - Loren Christie - 05/11/2023 1:14 PM EST Tc from pt requesting a follow up in regards to miscarriages. Pt still needs TP. Please contact pt at [phone] documented in this encounter Plan of Treatment Not on file documented as of this encounter Visit Diagnoses Not on filedocumented in this encounter Additional Health Concerns Assessment Noted Time PHQ-9 Depression Total Score: 10 023 12:43 PM EST documented as of this encounter Care Teams Supervisor Dairy Sanitation Relationship Specialty Start Date End Date Lucila Burns MD [address] [place] [id number] PCP - General Internal Medicine 12/27/22 documented as of this encounter
--- OUTSIDE RECORDS SUMMARY | 2024-11-21 14:43 | XMS_ITS | Encounter Summary ---
Author Organization [employer] Address [address] [facility] [address] [place] [address] Care Team Providers Care Paper Coating Supervisor Name Role Phone Lucila Burns MD Primary Care Pro vider Reason for Visit * Reason Onset Date Comments Med Refill 03/05/2023 Encounter Details Date Type Department Care Team ([facility] st Contact Info) Description 03/05/2023 Refill [facility] [address] [place] [address] Lucila Burns MD [address] [place] [address] [place] Social History Tobacco Use Types Packs/Day Years [...] encounter Miscellaneous Notes * Telephone Encounter - Lucila Ruiz MD - 03/08/2023 8:48 AM EST Need to confirm if pt is taking med * Telephone Encounter - Dimas Mcgill - 03/05/2023 3:50 PM EST TC from pt requesting med refill on minocycline (Dynacin) 100 MG tablet' Please sent to [id number] [phone] [facility] documented in this encounter Plan of Treatment Not on file documented as of this encounter Visit Diagnoses Diagnosis Rosacea documented in this encounter Additional Health Concerns Assessment Noted Time PHQ-9 Depression Total Score: 10 023 12:43 PM EST documented as of this encounter Care Teams Paper Coating Supervisor Relationship Specialty Start Date End Date Lucila Burns MD [address] [place] [id number] PCP - General Internal Medicine 12/27/22 documented as of this encounter
--- OUTSIDE RECORDS SUMMARY | 2024-11-21 14:44 | XMS_ITS | Clinical Summary ---
Author Organization [facility] Address [address] [place] [address] Care Team Providers Care Hot Punch Press Operator Name Role Phone Yeni Arango APN Primary Care Provider Source Comments PLEASE NOTE, if this patient is a minor, it may be UNLAWFUL to discuss sensitive information that is contained in these records (such as FAMILY PLANNING, MENTAL HEALTH or SUBSTANCE ABUSE) with the minor patient's parent or other person without the patient's specific authorization.[facility] Allergies No known active allergies Medications No known medications Active Problems Problem Noted Date Diagnosed Date Exposure to sexually transmitted disease (STD) 0 09/06/2024 Screening for cervical cancer 09/06/2024 Encounters Date Type Department Care Team Description 09/15/2024 7:00 PM CDT Office Visit [facility] BRICKLAYER HELPER [address] [place] [address] Briseyda Yeh WHNP 09/09/2024 Results Follow-Up [facility] [address] [place] [address] Melanie Diez NP 09/08/2024 Results Follow-Up [address] [address] Yeni Arango APN 09/06/2024 8:45 AM CDT Office Visit [address] [address] Yeni Arango APN 08/30/2024 1:15 PM CDT Office Visit [address] [address] Melanie Diez NP from Last 3 Months Family History Medical History Relation Name Comments No Known Problems Father No Known Problems Mother Relation Name Status Comments Father Mother Social History Tobacco Use Types Packs/Day Years Used Date Smoking Tobacco: Never Passive Smoke Exposure: Never Smokeless Tobacco: Never Tobacco Cessation:Counseling Given: Not Answered Alcohol Use Standard Drinks/Week Comments Never 0 (1 standard drink = 0.6 oz pur e alcohol) Safety and Environment Answer Date Stanley rded Total Score 1 09/06/2024 Comments No Sex and Gender Information Value Date Recorded Sex Assigned at Female 08/09/2024 8:31 AM PDT Legal Sex Female 8:30 AM PDT Gender Identity Female 08/09/2024 8:31 AM PDT Sexual Orientation Straight 08/09/2024 8: 31 AM PDT Last Filed Vital Signs Vital Sign Reading Time Taken Comments Blood Pressure 116/80 09/15/2024 7:28 PM CDT Pulse 95 09/15/2024 7:28 PM CDT Temperature 35.9 C (96.7 F) 09/15/2024 7:28 PM CDT Respiratory Rate 18 09/15/2024 7:28 PM CDT Oxygen Saturation 99% 09/15/2024 7:28 PM CDT Inhaled Oxygen Concentration - - Weight 84 kg (185 lb 2 oz) 09/15/2024 7:28 PM CD T Height 162.6 cm (5' 4 ) 09/15/2024 7:28 PM CDT Body Mass Index 31.78 09/15/2024 7:28 PM CDT Plan of Treatment Health Maintenance Due Date Last Done Comments HPV Screening 1996 STI Counseling 1996 Imm-Influenza (#1) 2024 01/10/2022, 1 , 12/31/2017 [id number] ( season) 2024 Postponed from 11/25/2023 (Patient postponement) Imm-Hepatitis B (2 of 3 - 19+ 3-dose series) 11/30/2024 07/09/2017 Postponed from 08/06/2017 (Patient postponement) Annual Wellness (Adult): Indicated (All Coverage) 08/30/2025 08/30/2024 Diabetes Screening 09/06/2025 09/06/2024, 0 09/06/2024, 08/26/2020, Additional history exists Relationship Safety Screening/Counseling 09/06/2025 09/06/2024, 08/30/2024 Hypertension Screening (#1) 09/15/2025 Tobacco Screening 09/15/2025 09/15/2024 Anxiety Screening 08/30/2026 08/30/2024 Lipid Screening 09/07/2027 09/06/2024 Pap Smear 09/07/2027 09/06/2024 Cervical Cancer Screening 09/06/2029 Pap + HPV 09/06/2029 09/06/2024 Imm-DTaP/Tdap/Td (3 - Td or Tdap) 01/11/2032 01/10/2022, 07/09/2017 Alcohol and Drug Screen Completed 08/30/2024 HIV Screening Completed 09/06/2024, 08/24, 09/08/2022, Additional history exists Hepatitis C Screening Completed 09/06/2024, 023 Depression Annual Screen Completed 09/15/2024, 09/2024 Cervical Ablation/Cold-Knife Conization Discontinued Cervical Cryotherapy Discontinued Colposcopy Discontinued Endometrial Biopsy Discontinued Excision/Leep Discontinued HPV Genotyping Discontinued Vaginal Pap Discontinued Vulvoscopy Discontinued Procedures Procedure Name Priority Date/Time Associated Diagnosis Comments RFLX-INTERPRETATION Routine 09/06/2024 9 :34 AM CDT Exposure to sexually transmitted disease (STD) RPR (MONITOR) W/REFL TITER Routine 09/06/2024 9:34 AM CDT Exposure to sexually transmitted disease (STD) HIV 1/0/2 AG/AB W/CASCADE RFLX SUPPLEMENTAL TESTING Routine 09/06/2024 9:34 AM CDT Exposure to sexually transmitted disease (STD) HERPES SIMPLEX (HSV) 1/2 IGG, SERUM Routine 09/06/2024 9:34 AM CDT Exposure to sexually transmitted disease (STD) ACUTE HEPATITIS Routine 09/06/2024 9:34 AM CDT Exposure to sexually transmitted disease (STD) 25 HYDROXY INCLUDES FRACTIONS IF PERFORMED Routine 09/06/2024 9:34 AM CDT Annual physical exam TSH, REFLEXIVE Routine 09/06/2024 9:34 AM CDT Annual physical exam HEMOGLOBIN GLYCOSYLATED A1C Routine 09/06/2024 9:34 AM CDT Annual physical exam LIPID PANEL WITH LDL:HDL RATIO Routine 09/06/2024 9:34 AM CDT Annual physical exam COMPREHENSIVE METABOLIC PANEL Routine 09/06/2024 9:34 AM CDT Annual physical exam BLOOD COUNT COMPLETE AUTO&AUTO DIFRNTL WBC Routine 09/06/2024 9:34 AM CDT Annual physical exam RFLX - URINALYSIS MICROSCOPIC Routine 09/06/2024 9:33 AM CDT Annual physical exam URINALYSIS, COMPLETE W/REFLEX TO CULTURE Routine 09/06/2024 9:33 AM CDT Annual physical exam PAP, IG, LIQ BASE W/ CT/GC/HPV W/RFX HPV GEN16 18,45 Routine 09/06/2024 9:19 AM CDT Screening for cervical cancer VAGINITIS PLUS (VG+) WITH PEBBLES (SIX SPECIES), NUSWAB Routine 09/06/2024 9:19 AM CDT Exposure to sexually transmitted disease (STD) from Last 3 Months Results * ACUTE HEPATITIS Routine (09/06/2024 9:34 AM CDT) HEP A AB, IGM Negative Negative [facility] Comment: A negative anti-HAV IgM result suggests no recent or current HAV infection. HBSAG SCREEN Negative Negative [facility] HEP B CORE AB, IGM Negative Negative [facility] HCV AB Non Reactive Non Reactive [facility] [place] Blood Blood / Unknown 09/06/2024 9 :34 AM CDT 09/06/2024 Yeni Arango APN LAB - BLOOD DRAW Final Resul t Performing Organization Address [facility] de Phone Number [facility] [address] [place] [address] * HIV 1/0/2 AG/AB W/CASCADE RFLX SUPPLEMENTAL TESTING Routine (09/06/2024 9:34 AM CDT) [facility] HIV SCREEN 4TH GENERATION WRFX Non Reactive Non Reactive [facility] Comment: HIV-1/HIV-2 antibodies and HIV-1 p24 antigen were NOT detected. There is no laboratory evidence of HIV infection. HIV Negative Blood Blood / Unknown 09/06/2024 9 :34 AM CDT 09/06/2024 Yeni Arango APN LAB - BLOOD DRAW Final Resul t Performing Organization Address [facility] de Phone Number [facility] [address] [place] [address] * RFLX-INTERPRETATION Blood Blood Routine (09/06/2024 9:34 AM CDT) [facility] INTERPRETATION [facility] Comment: Not infected with HCV unless early or acute infection is suspected (which may be delayed in an immunocompromised individual), or other evidence exists to indicate HCV infection. Blood Blood / Unknown 09/06/2024 9 :34 AM CDT 09/06/2024 Yeni Arango APN LAB - NO BLOOD DRAW Final Re sult Performing Organization Address City/[facility] de Phone Number [facility] [address] [place] [address] * TSH, REFLEXIVE Routine (09/06/2024 9:34 AM CDT) [facility] TSH 1.830 0.450 - 4.500 uIU/mL [facility] Blood Blood / Unknown 09/06/2024 9 :34 AM CDT 09/06/2024 Melanie Diez NP LAB - BLOOD DRAW Final Result Performing Organization Address [facility] Co de Phone Number [facility] [address] [place] [address] * (ABNORMAL) HERPES SIMPLEX (HSV) 1/2 IGG, SERUM Routine (09/06/2024 9:34 AM CDT) HSV 1 IGG, TYPE SPEC Reactive(A) Non Reactive [facility] Comment: Please note reference interval change HSV-1 IgG testing performed using the [employer] HSV-1 IgG assay. HSV 2 IGG, TYPE SPEC Non Reactive Non Reactive [facility] Comment: Please note reference interval change Current guidelines and recommendations do not recommend routine screening for HSV-2 in asymptomatic individuals, including those that are . The detection of HSV-2 IgG antibodies in a single sample indicates previous exposure to HSV-2 but does not give information as to the site of HSV infection or the timing of exposure. The predictive value of positive and negative results depends on the population's prevalence and the pretest likelihood of HSV-2. HSV-2 IgG testing performed using the [employer] HSV-2 IgG assay. Blood Blood / Unknown 09/06/2024 9 :34 AM CDT 09/06/2024 Yeni Arango APN LAB - BLOOD DRAW Final Resul t [facility] [address] [place] [address] * LIPID PANEL WITH LDL:HDL RATIO Routine (09/06/2024 9:34 AM CDT) CHOLESTEROL, TOTAL 142 100 - 199 mg/dL [facility] TRIGLYCERIDES 39 0 - 149 mg/dL [facility] HDL CHOLESTEROL 60 >39 mg/dL [facility] VLDL CHOLESTEROL NICKY 9 5 - 40 mg/dL [facility] LDL CHOL CALC (NIH) 73 0 - 99 mg/dL [facility] LDL/HDL RATIO 1.2 0.0 - 3.2 ratio [facility] Comment: LDL/HDL Ratio Men Women 1/2 Avg.Risk 1.0 1.5 Avg.Risk 3.6 3.2 2X Avg.Risk 6.2 5.0 3X Avg.Risk 8.0 6.1 Blood Blood / Unknown 09/06/2024 9 :34 AM CDT 09/06/2024 Melanie Diez SENIOR DATA WAREHOUSE DEVELOPER LAB - BLOOD DRAW Final Result [facility] [address] [place] [address] * RPR (MONITOR) W/REFL TITER Routine (09/06/2024 9:34 AM CDT) RPR Non Reactive Non Reactive [facility] INTERPRETATION: [facility] Comment: Syphilis: RPR with Reflex to RPR Titer and Treponemal Antibodies, Traditional Screening and Diagnosis Algorithm Treponemal RPR RPR, Qn Ab Final Interpretation -------- --------- Non N/A N/A No laboratory evidence Reactive of syphilis. Retest in 2-4 weeks if recent exposure us suspected. -------- --------- Reactive >/=1:1 Non Nontreponemal antibodies Reactive detected. Syphilis unlikely; biological false positive possible. Retest in 2-4 weeks if recent exposure is suspected. -------- --------- Reactive >/=1:1 Reactive Treponemal and nontreponemal antibodies detected. Consistent with past or current (potential early) syphilis. Blood Blood / Unknown 09/06/2024 9 :34 AM CDT 09/06/2024 Yeni Arango APN LAB - BLOOD DRAW Final Resul t [facility] [address] [place] [address] * (ABNORMAL) BLOOD COUNT COMPLETE AUTO&AUTO DIFRNTL WBC Routine (09/06/2024 9:34 AM CDT) WHITE BLOOD CELL(WBC) COUNT 7.0 3.4 - 10.8 x10E3/uL [facility] RED BLOOD CELL (RBC) COUNT 5.41(H) 3.77 - 5.28 x10E6/uL [facility] HEMOGLOBIN 13.8 11.1 - 15.9 g/dL [facility] HEMATOCRIT 45.9 34.0 - 46.6 % [facility] MCV 85 79 - 97 fL [facility] MCH 25.5(L) 26.6 - 33.0 pg [facility] MCHC 30.1(L) 31.5 - 35.7 g/dL [facility] RDW 14.4 11.7 - 15.4 % [facility] PLATELETS 145(L) 150 - 450 x10E3/uL [facility] NEUTROPHILS 69 Not Estab. % [facility] LYMPHS 24 Not Estab. % [facility] MONOCYTES 6 Not Estab. % [facility] EOS 1 Not Estab. % [facility] BASOPHILS 0 Not Estab. % [facility] NEUTROPHILS (ABSOLUTE) 4.8 1.4 - 7.0 x10E3/uL [facility] LYMPHS (ABSOLUTE) 1.7 0.7 - 3.1 x10E3/uL [facility] MONOCYTES(ABSOLUT E) 0.4 0.1 - 0.9 x10E3/uL [facility] EOS (ABSOLUTE) 0.1 0.0 - 0.4 x10E3/uL [facility] BASO (ABSOLUTE) 0.0 0.0 - 0.2 x10E3/uL [facility] IMMATURE GRANULOCYTES 0 Not Estab. % [facility] IMMATURE GRANS (ABS) 0.0 0.0 - 0.1 x10E3/uL [facility] Blood Blood / Unknown 09/06/2024 9 :34 AM CDT 09/06/2024 Melanie Diez NP LAB - BLOOD DRAW Final Result [facility] [address] [place] [address] * (ABNORMAL) HEMOGLOBIN GLYCOSYLATED A1C Routine (09/06/2024 9:34 AM CDT) HEMOGLOBIN A1C 5.7(H) 4.8 - 5.6 % [facility] Comment: . Prediabetes: 5.7 - 6.4 Diabetes: >6.4 Glycemic control for adults with diabetes: <7.0 Blood Blood / Unknown 09/06/2024 9 :34 AM CDT 09/06/2024 Melanie Diez NP LAB - BLOOD DRAW Final Result Performing Organization Address City/[facility]/ZIP Co de Phone Number [facility] [address] [place] [address] * (ABNORMAL) 25 HYDROXY INCLUDES FRACTIONS IF PERFORMED Routine (09/06/2024 9:34 AM CDT) VITAMIN D, 25-HYDROXY 23.4(L) 30.0 - 100.0 ng/mL [facility] Comment: Vitamin D deficiency has been defined by the [place] of Medicine and an Endocrine Society practice guideline as a level of serum 25-OH vitamin D less than 20 ng/mL (1,2). The Endocrine Society went on to further define vitamin D insufficiency as a level between 21 and 29 ng/mL (2). 1. IOM ([place] of Medicine). 2010. Dietary reference intakes for calcium and D. [place]: The National Academies Press. 2. Uzma MF, Lashawn NC, Leobardo GIRON, et al. Evaluation, treatment, and prevention of vitamin D deficiency: an Endocrine Society clinical practice guideline. JCEM. 2010; 96(7):1911-30. Blood Blood / Unknown 09/06/2024 9 :34 AM CDT 09/06/2024 Melanie Diez NP LAB - BLOOD DRAW Final Result [facility] [address] [place] [address] * (ABNORMAL) COMPREHENSIVE METABOLIC PANEL Routine (09/06/2024 9:34 AM CDT) GLUCOSE, SERUM 89 70 - 99 mg/dL [facility] BUN 13 6 - 20 mg/dL [facility] CREATININE, SERUM 0.81 0.57 - 1.00 mg/dL [facility] eGFR 101 >59 mL/min/1.7 3 [facility] BUN/CREATININE RATIO 16 9 - 23 [facility] SODIUM, SERUM 138 134 - 144 mmol/L [facility] POTASSIUM, SERUM 4.5 3.5 - 5.2 mmol/L [facility] CHLORIDE, SERUM 104 96 - 106 mmol/L [facility] CARBON DIOXIDE, TOTAL 18(L) 20 - 29 mmol/L [facility] CALCIUM, SERUM 9.8 8.7 - 10.2 mg/dL [facility] PROTEIN, TOTAL, SERUM 7.8 6.0 - 8.5 g/dL [facility] ALBUMIN, SERUM 4.7 4.0 - 5.0 g/dL [facility] GLOBULIN, TOTAL 3.1 1.5 - 4.5 g/dL [facility] BILIRUBIN, TOTAL 0.2 0.0 - 1.2 mg/dL [facility] ALKALINE PHOSPHATASE, SERUM 94 44 - 121 IU/L [facility] AST (SGOT) 16 0 - 40 IU/L [facility] ALT (SGPT) 10 0 - 32 IU/L [facility] Blood Blood / Unknown 09/06/2024 9 :34 AM CDT 09/06/2024 Melanie Diez SENIOR DATA WAREHOUSE DEVELOPER LAB - BLOOD DRAW Final Result Performing Organization Address [facility]/ZIP Co de Phone Number [facility] [address] [place] [address] * RFLX - URINALYSIS MICROSCOPIC Urine Routine (09/06/2024 9:33 AM CDT) Pathologist [facility] URINE LEUKOCYTES None seen 0 - 5 /hpf [facility] RBC 0-2 0 - 2 /hpf [facility] EPITHELIAL CELLS (NON RENAL) None seen 0 - 10 /hpf [facility] CASTS None seen None seen /lpf [facility] BACTERIA None seen None seen/Few [facility] Urine Urine specimen / Unknown 09/06/2024 9:33 AM CDT 09/06/2024 Melanie Diez SENIOR DATA WAREHOUSE DEVELOPER LAB URINE AMBULATORY Final Resul t Performing Organization Address [facility] Co de Phone Number [facility] [address] [place] [address] * URINALYSIS, COMPLETE W/REFLEX TO CULTURE Urine Routine (09/06/2024 9:33 AM CDT) Pathologist [facility] SPECIFIC GRAVITY 1.025 1.005 - 1.030 [facility] PH 6.0 5.0 - 7.5 [facility] URINE-COLOR Yellow Yellow [facility] APPEARANCE Clear Clear [facility] WBC Esterase Negative Negative [facility] URINE PROTEIN Negative Negative/Tra ce [facility] URINE GLUCOSE Negative Negative [facility] URINE KETONES Negative Negative [facility] OCCULT BLOOD Negative Negative [facility] BILIRUBIN Negative Negative [facility] UROBILINOGEN, SEMI-QN 0.2 0.2 - 1.0 mg/dL [facility] NITRITE, URINE Negative Negative [facility] MICROSCOPIC EXAMINATION [facility] Comment:Microscopic follows if indicated. MICROSCOPIC EXAMINATION See below: [facility] Comment:Microscopic was pepe cated and was performed. URINALYSIS REFLEX [facility] Comment:This specimen will n ot reflex to a Urine Culture. Urine Urine specimen / Unknown 09/06/2024 9:33 AM CDT 09/06/2024 us Melanie Diez SENIOR DATA WAREHOUSE DEVELOPER LAB URINE AMBULATORY Final Resul t [facility] [address] [place] [address] * PAP, IG, LIQ BASE W/ CT/GC/HPV W/RFX HPV GEN16 18,45 Cervical Swab Routine (09/06/2024 9:19 AM CDT) INTERPRETATION NILM [facility] Comment:NEGATIVE FOR INTRAEP ITHELIAL LESION OR MALIGNANCY. CATEGORY: NIL [facility] Comment:Negative for Intraep ithelial Lesion ADEQUACY: SECNI [facility] Comment:Satisfactory for bernardo luation. No endocervical component is identified. CLINICIAN PROVIDED ICD10 [facility] [place] Comment: Z20.2 Z12.4 PERFORMED BY [facility] Comment:Fco Albert tologist NOTE [facility] [place] Comment: The Pap smear is a screening test designed to aid in the detection of premalignant and malignant conditions of the uterine cervix. It is not a diagnostic procedure and should not be used as the sole means of detecting cervical cancer. Both false-positive and false-negative reports do occur. . TEST METHODOLOGY [facility] [place] Comment: This liquid based ThinPrep(R) pap test was screened with the use of an image guided system. HPV APTIMA Negative Negative [facility] Comment: This nucleic acid amplification test detects fourteen high-risk HPV types (16,18,31,33,35,39,45,51,52,56,58,59,66,68) without differentiation. HPV GENOTYPE REFLEX [facility] [place] Comment:Criteria not met, HP V Genotype not performed. CHLAMYDIA, NUC. ACID AMP Negative Negative [facility] [place] GONOCOCCUS, NUC. ACID AMP Negative Negative [facility] Swab Cervix uteri structure / Unknown 09/06/2024 9:19 AM CDT 09/06/2024 Yeni Arango APN LAB - PATHOLOGY AND CYTOLOGY AMBULATORY Final Result [facility] [address] [place] [address] * VAGINITIS PLUS (VG+) WITH PEBBLES (SIX SPECIES), NUSWAB Vaginal Vaginal Routine (09/06/2024 9:19 AMCDT) ATOPOBIUM VAGINAE Low - 0 Score [facility] BVAB 2 Low - 0 Score [facility] [place] MEGASPHAERA 1 Low - 0 Score [facility] [place] Comment: Calculate total score by adding the 3 individual bacterial vaginosis (BV) marker scores together. Total score is interpreted as follows: Total score 0-1: Indicates the absence of BV. Total score 2: Indeterminate for BV. Additional clinical data should be evaluated to establish a diagnosis. Total score 3-6: Indicates the presence of BV. PEBBLES ALBICANS, BIBI Negative Negative [facility] [place] PEBBLES GLABRATA, BIBI Negative Negative [facility] [place] C PARAPSILOSIS/TROP ICALIS Negative Negative [facility] [place] Comment:This assay does not differentiate C. tropicalis and C. parapsilosis. PEBBLES LUSITANIAE, BIBI Negative Negative [facility] PEBBLES KRUSEI, BIBI Negative Negative [facility] [place] TRICH VAG BY BIBI Negative Negative [facility] CHLAMYDIA TRACHOMATIS, BIBI Negative Negative [facility] NEISSERIA GONORRHOEAE, BIBI Negative Negative [facility] Vaginal Vaginal structure / Unknown 09/06/2024 9:19 AM CDT 09/06/2024 Yeni Arango APN LAB BODY FLUIDS AND STOOLS A MBULATORY Final Result [facility] [address] [place] [address] from Last 3 Months Care Teams Hot Punch Press Operator Relationship Specialty Start Date End Date Yeni Arango APN [address] [place] [address] PCP - General Family Medicine, SENIOR DATA WAREHOUSE DEVELOPER 08/23/24
--- NOTE | 2024-11-21 14:55 | PC.NURSE ---
29 F presents to ED with CP, h/a. nausea, pain from neck to back of head, anxiety, and SOB. Pt sts she started feeling worse 3 days ago but symptoms started 1 week ago. Pain is 7/10. RR even and unlabored, lung sounds clear bilateral. Pt ambulates indepedently but has also felt some weakness and SOB with ambulation lately. A+Ox4, calm and cooperative. Pt sts she has been having some relationship issues with her s/o but sts she feels safe at home.
[2024-11-21 15:09] LABS: MANUAL DIFF FLAG NO
[2024-11-21 15:17] LABS: Hematocrit 40.3 % (37.0-47.0); Hemoglobin 13.0 g/dl (12.0-16.0); Imm Gran Abs Auto 0.02 X10*3/uL (0.00-0.03); Imm Gran Pct Auto 0.3 % (0.0-0.4); Lymphocytes Absolute Auto 1.7 X10*3/uL (1.2-4.9); Mean Corpuscular HGB Conc 32.3 g/dl (31.0-35.0); Mean Corpuscular Hemoglobin 26.3 pg (27.0-33.0); Mean Corpuscular Volume 81.6 fL (80.0-98.0); NRBC Abs Auto 0.000 X10*3/uL (0.0-0.012); NRBC Pct Auto 0.0 /100WBC (0.0-0.2); Platelet Count 154 X10*3/uL (160-400); Red Blood Count 4.94 X10*6/uL (4.20-5.50); White Blood Count 5.9 X10*3/uL (4.8-10.8)
[2024-11-21 15:31] LABS: IDNOW Serial# 152EDE1D; Influenza B2 Negative (Negative)
[2024-11-21 15:32] LABS: COVID-19 Test Negative (Negative); IDNOW Serial# 16C4AD1C
[2024-11-21 15:40] LABS: Alanine Aminotransferase 21 U/L (0-31); Albumin Level 4.6 g/dL (3.5-5.0); Alkaline Phosphatase 104 U/L (39-117); Anion Gap 12 (12-20); Aspartate Amino Transferase 24 U/L (5-31); Blood Urea Nitrogen 15 mg/dL (9-16); Calcium 9.8 mg/dL (8.4-10.2); Carbon Dioxide 25 mmol/L (22-29); Chloride 106 mmol/L (96-108); Creatinine Clr Calc Pharmacy 102.6; Estimated Glomerular Filt Rate > 60; Lipase 25 U/L (8-78); Potassium 4.4 mmol/L (3.3-5.1); Sodium 139 mmol/L (135-145); Total Protein 7.7 g/dL (6.5-8.0)
[2024-11-21 15:45] LABS: Troponin-I High Sensitivity < 2.7 ng/L (<3.5-17.0)
[2024-11-21 15:48] LABS: Appearance Urine Clear; Glucose Urine UA Negative (Negative); PH 6.0 (5.0-9.0); Specific Gravity - Urine 1.025 (1.005-1.025); UMIC TRIGGER UACC YES
[2024-11-21 16:01] LABS: UACC Culture Trigger YES
[2024-11-21 16:23] VITALS: BP 126/79; PULSE 80; RESP 16; TEMP 36.9; O2SAT 96
== END 2024-11-21 16:24 | disposition home or self-care (01) ==
PROVIDERS: Physician Assistant; Emergency Provider Emergency Medicine
DX: R07.89 Other chest pain (principal); R06.00 Dyspnea, unspecified; R51.9 Headache, unspecified; R11.0 Nausea
CPT/HCPCS: 36415; 71046; 80053; 81001; 83690; 84484; 84702; 85025; 87086; 87502; 87635; 93005; 99283; 99285

== ENCOUNTER → 2024-11-21 14:04 | Outpatient (BNV) | payer MEDICAID, SELFPAY | PROVIDERS: Emergency Provider Emergency Medicine; Visit Provider Internal Medicine | DX: R07.89 Other chest pain (principal) | CPT/HCPCS: 93010 ==

== ENCOUNTER → 2024-11-21 15:05 | Outpatient (BNV) | payer MEDICAID, SELFPAY | PROVIDERS: Emergency Provider Emergency Medicine; Visit Provider Radiology Diagnostic Radiology | DX: R07.9 Chest pain, unspecified (principal) | CPT/HCPCS: 71046 ==

== ENCOUNTER 2025-01-23 13:43 | Outpatient (REF) | payer MEDICAID, SELFPAY ==
--- NOTE | ~2025-01-23 | US_ITS ---
EXAMINATION: US PELVIS CLINICAL INFORMATION: Pelvic pain. COMPARISON: May 21, 2020. TECHNIQUE: Ultrasound of the pelvis is performed using both transabdominal and transvaginal transducers along with Doppler. Transvaginal imaging is performed due to inadequate visualization transabdominally. FINDINGS: Uterus: The uterus is in retroversion flexion and measures 7 x 4 x 4 cm. Normal appearance of the cervix. The double wall endometrial thickness is 4 mm. No gross masses in the myometrium. Cervix is closed. [employer]: The ovaries are identified with the normal flow distribution on color Doppler interrogation.. No free fluid in the cul-de-sac. No fluid collections. Right ovary measures 4 x 2 x 2 cm. Volume: 10 cc. No solid or cystic lesion. Left ovary measures 4 x 2 x 2 cm. Volume: 7 cc. 1.2 cm dominant follicle. US/US pelvic and transvaginal IMPRESSION: Uterus is in retroversion flexion position. No ovarian torsion. Normal endometrial stripe. No gross uterine fibroid.. Electronically signed by: Demetrio Alexandre MD 01/23/2025 03:06 PM EDT
--- OUTSIDE RECORDS SUMMARY | 2025-01-23 14:42 | XMS_ITS | Encounter Summary ---
Author Organization [email or web address] [facility] Address [address] [place] [address] Care Team Providers Care Elastic Cutter Name Role Phone Otilia Carbone SEWING MACHINE TESTER Primary Care Provider Lucila Mendez MD Primary Care Pro vider Encounter Details Date Type Department Care Team (Late st Contact Info) Description 12/19/2022 Orders Only [facility] [address] [place] [address] Provider, Historical, Social History Tobacco Use Types [...] documented as of this encounter Care Teams Elastic Cutter Relationship Specialty Start Date End Date Otilia Carbone FNP PCP - General Family Medicine 01/06/21 12/26/22 Lucila Burns MD [address] [place] [id number] PCP - General Internal Medicine 12/27/22 documented as of this encounter
--- OUTSIDE RECORDS SUMMARY | 2025-01-23 14:42 | XMS_ITS | Encounter Summary ---
Author Organization [employer] Address [address] [facility] [address] [place] [address] Care Team Providers Care Rn Homecare Name Role Phone Lucila Burns MD Primary Care Pro vider Encounter Details Date Type Department Care Team (Late st Contact Info) Description 03/16/2023 Abstract [facility] MEDICINE [address] [place] [address] Lucila Burns MD [address] [place] [address] Social History Tobacco Use Types Packs/Day Years [...] documented as of this encounter Care Teams Rn Homecare Relationship Specialty Start Date End Date Lucila Burns MD [address] [place] [id number] PCP - General Internal Medicine 12/27/22 documented as of this encounter
--- OUTSIDE RECORDS SUMMARY | 2025-01-23 14:42 | XMS_ITS | Clinical Summary ---
Author Organization [facility] Address [address] [place] [address] Care Team Providers Care It Technical Architect Name Role Phone Yeni Arango APN Primary Care Provider [phone] Source Comments PLEASE NOTE, if this patient [...] 0 09/06/2024 Screening for cervical cancer 09/06/2024 Family History Medical History Relation Name Comments [...] Due Date Last Done Comments HPV Screening (self-collect) 1996 HPV Screening 1996 STI Counseling 1996 Imm-Hepatitis B (2 of 3 - 19 + 3-dose series) 08/06/2017 07/09/2017 Imm-HPV (1 - 3-dose SCDM series) 2023 [id number] ( season) 2024 Imm-Influenza (#1) 2024 01/10/2022, 1 , 12/31/2017 Annual Wellness (Adult): Indicated (All Coverage) 08/30/2025 08/30/2024 Diabetes Screening 09/06/2025 09/06/2024, 0 09/06/2024, 08/26/2020, Additional history exists Relationship Safety Screening/Counseling 09/06/2025 09/06/2024, 08/30/2024 Hypertension Screening (#1) 09/15/2025 Tobacco Screening 09/15/2025 09/15/2024 Anxiety Screening 08/30/2026 08/30/2024 Lipid Screening 09/07/2027 09/06/2024 Pap Smear 09/07/2027 09/06/2024 Cervical Cancer Screening 09/06/2029 Pap + HPV 09/06/2029 09/06/2024 Imm-DTaP/Tdap/Td (3 - Td or Tdap) 01/11/2032 022, 07/09/2017 Alcohol and Drug Screen Completed 08/30/2024 HIV Screening Completed 09/06/2024, 08/24, 09/08/2022, Additional history exists Hepatitis C Screening Completed 09/06/2024, 023 Depression Annual Screen Completed 09/15/2024, 09/2024 Cervical Ablation/Cold-Knife Conization Discontinued Cervical Cryotherapy Discontinued Colposcopy Discontinued Excision/Leep Discontinued HPV Genotyping Discontinued Vaginal Pap Discontinued Vulvoscopy Discontinued Procedures Procedure Name Priority Date/Time Associated Diagnosis Comments HIV 1/0/2 AG/AB W/CASCADE RFLX SUPPLEMENTAL TESTING Routine 09/06/2024 9:34 AM CDT Exposure to sexually transmitted disease (STD) ACUTE HEPATITIS Routine 09/06/2024 9:34 AM CDT Exposure to sexually transmitted disease (STD) HEMOGLOBIN GLYCOSYLATED A1C Routine 09/06/2024 9:34 AM CDT Annual physical exam LIPID PANEL WITH LDL:HDL RATIO Routine 09/06/2024 9:34 AM CDT Annual physical exam PAP, IG, LIQ BASE W/ CT/GC/HPV W/RFX HPV GEN16 18,45 Routine 09/06/2024 9:19 AM CDT Screening for cervical cancer from Last 3 Months or Most Recently Relevant to Health Maintenance Results * ACUTE HEPATITIS Routine (09/06/2024 9:34 AM CDT) HEP A AB, IGM Negative Negative [facility] Comment: A negative anti-HAV IgM result suggests no recent or current HAV infection. HBSAG SCREEN Negative Negative [facility] HEP B CORE AB, IGM Negative Negative [facility] HCV AB Non Reactive Non Reactive [facility] [place] Blood Blood / Unknown 09/06/2024 9 :34 AM CDT 09/06/2024 Yeni Arango APN LAB - BLOOD DRAW Final Resul t [facility] [address] [place] [address] * HIV 1/0/2 AG/AB W/CASCADE RFLX SUPPLEMENTAL TESTING Routine (09/06/2024 9:34 AM CDT) HIV SCREEN 4TH GENERATION WRFX Non Reactive Non Reactive [facility] Comment: HIV-1/HIV-2 antibodies and HIV-1 p24 antigen were NOT detected. There is no laboratory evidence of HIV infection. HIV Negative Blood Blood / Unknown 09/06/2024 9 :34 AM CDT 09/06/2024 Yeni Arango APN LAB - BLOOD DRAW Final Resul t Performing Organization Address City/[facility]/ZIP Co de Phone Number [facility] [address] [place] [address] * LIPID PANEL WITH LDL:HDL RATIO Routine (09/06/2024 9:34 AM CDT) CHOLESTEROL, TOTAL 142 100 - 199 mg/dL [facility] TRIGLYCERIDES 39 0 - 149 mg/dL [facility] HDL CHOLESTEROL 60 >39 mg/dL [facility] VLDL CHOLESTEROL NICKY 9 5 - 40 mg/dL [facility] LDL CHOL CALC (NIH) 73 0 - 99 mg/dL [facility] LDL/HDL RATIO 1.2 0.0 - 3.2 ratio [facility] Comment: LDL/HDL Ratio Men Women 1/2 Avg.Risk 1.0 1.5 Avg.Risk 3.6 3.2 2X Avg.Risk 6.2 5.0 3X Avg.Risk 8.0 6.1 Blood Blood / Unknown 09/06/2024 9 :34 AM CDT 09/06/2024 Melanie Diez NP LAB - BLOOD DRAW Final Result Performing Organization Address City/[facility] Co de Phone Number [facility] [address] [place] [address] * (ABNORMAL) HEMOGLOBIN GLYCOSYLATED A1C Routine (09/06/2024 9:34 AM CDT) HEMOGLOBIN A1C 5.7(H) 4.8 - 5.6 % [facility] Comment: . Prediabetes: 5.7 - 6.4 Diabetes: >6.4 Glycemic control for adults with diabetes: <7.0 Blood Blood / Unknown 09/06/2024 9 :34 AM CDT 09/06/2024 Melanie Diez NP LAB - BLOOD DRAW Final Result [facility] [address] [place] [address] * PAP, IG, LIQ BASE W/ CT/GC/HPV W/RFX HPV GEN16 18,45 Cervical Swab Routine (09/06/2024 9:19 AM CDT) INTERPRETATION NILM [facility] Comment:NEGATIVE FOR INTRAEP ITHELIAL LESION OR MALIGNANCY. CATEGORY: NIL [facility] Comment:Negative for Intraep ithelial Lesion ADEQUACY: SECNI [facility] Comment:Satisfactory for bernardo luation. No endocervical component is identified. CLINICIAN PROVIDED ICD10 [facility] Comment: Z20.2 Z12.4 PERFORMED BY [facility] Comment:Fco Albert tologist NOTE [facility] Comment: The Pap smear is a screening test designed to aid in the detection of premalignant and malignant conditions of the uterine cervix. It is not a diagnostic procedure and should not be used as the sole means of detecting cervical cancer. Both false-positive and false-negative reports do occur. . TEST METHODOLOGY [facility] Comment: This liquid based ThinPrep(R) pap test was screened with the use of an image guided system. HPV APTIMA Negative Negative [facility] Comment: This nucleic acid amplification test detects fourteen high-risk HPV types (16,18,31,33,35,39,45,51,52,56,58,59,66,68) without differentiation. HPV GENOTYPE REFLEX [facility] Comment:Criteria not met, HP V Genotype not performed. CHLAMYDIA, NUC. ACID AMP Negative Negative [facility] GONOCOCCUS, NUC. ACID AMP Negative Negative [facility] Swab Cervix uteri structure / Unknown 09/06/2024 9:19 AM CDT 09/06/2024 Yeni Arango APN LAB - PATHOLOGY AND CYTOLOGY AMBULATORY Final Result [facility] [address] [facility] [address] from Last 3 Months or Most Recently Relevant to Health Maintenance Care Teams It Technical Architect Relationship Specialty Start Date End Date Yeni Arango APN [address] [place] [address] PCP - General Family Medicine, P[employer]ING [employer]SE LABORER 08/23/24
--- OUTSIDE RECORDS SUMMARY | 2025-01-23 14:42 | XMS_ITS | Encounter Summary ---
Author Organization [employer] Address [address] [facility] 7t [place] [address] Care Team Providers Care Hearing Screen Coordinator Name Role Phone Lucila Burns MD Primary Care Pro vider Reason for Visit * Reason Onset Date Comments Nurse Triage 12/09/2024 Encounter Details Date Type Department Care Team ([facility] st Contact Info) Description 12/09/2024 Telephone [facility] MEDICINE [address] [place] [address] Lucila Burns MD [address] [place] [address] Nurse Triage Social History Tobacco Use Types Packs/Day Years Used Date Smoking Tobacco: Never Passive Smoke Exposure: Never Smokeless Tobacco: Never Alcohol Use Standard Drinks/Week Comments Not Currently [...] encounter Miscellaneous Notes * Telephone Encounter - Dede Govea RN - 12/09/2024 9:16 AM EDT Date: 11/21 Hospital: [facility] Seen for: Chest pain. [place] odd Symptomatic Yes *if yes message should go to Triage Called pt. Via S park interpreter [phone] Ji. Pt. States that she needs an appt because she gets painin her chest on and off. Pt states she went to [facility] ED on 11/21/24 with no findings. Pt. States when she gets chest pressure she gets dizzy. Pt. Is not feeling these sx. Now but, states she had them yesterday. Pt. States that it does not feel like pain in her heart it feels more like a pressure in chest. No cough or illness. Pt. Denies nausea, dizziness, or sweating during these episodes. Denies jaw pain, left arm pain. Pt. Will go to [facility] walk in for further evaluation of sx. I do not see a ED note from [facility] in chart from 11/21/24. I will send this note to clinical coordinators to get note into pt. Chart. Protocol Used: Chest Pain (Adult) Protocol-Based Disposition: See in Office or Video Visit Today Video visit offer not recorded Positive Triage Question: * All other patients with chest pain (Exception: Fleeting chest pain lasting a few seconds.) * All higher-acuity triage questions were negative Care Advice Discussed: * Reassurance and Education - Fleeting Chest Pains * Telephone Encounter - Isidro Daniels - 12/09/2024 9:13 AM EDT Patient calling to report ED visit on : Date: 11/21 Hospital: [facility] Seen for: Chest pain. [place] odd Symptomatic Yes *if yes message should go to Triage Patient advised will forward to team nurse for follow up Contact pt at [phone] documented in this encounter Plan of Treatment Not on file documented as of this encounter Visit Diagnoses Not on filedocumented in this encounter Additional Health Concerns Assessment Noted Time PHQ-9 Depression Total Score: 10 023 12:43 PM EST documented as of this encounter Care Teams Hearing Screen Coordinator Relationship Specialty Start Date End Date Lucila Burns MD [address] [place] [phone] PCP - General Internal Medicine 12/27/22 documented as of this encounter
--- OUTSIDE RECORDS SUMMARY | 2025-01-23 14:42 | XMS_ITS | Encounter Summary ---
Author Organization [employer] Address [address] [facility] 7t [place] [address] Care Team Providers Care Drum Handler Name Role Phone Lucila Burns MD Primary Care Pro vider Reason for Visit * Reason Onset Date Comments Appointment Request 05/11/2023 Encounter Details Date Type Department Care Team ([facility] st Contact Info) Description 05/11/2023 Telephone [facility] MEDICINE [address] [place] [address] Lucila Burns MD [address] [place] [address] Appointment Request Social History Tobacco Use Types [...] still needs TP. Please contact pt at [phone] documented in this encounter Plan of Treatment Not on file documented as of this encounter Visit Diagnoses Not on filedocumented in this encounter Additional Health Concerns Assessment Noted Time PHQ-9 Depression Total Score: 10 023 12:43 PM EST documented as of this encounter Care Teams Drum Handler Relationship Specialty Start Date End Date Lucila Burns MD [address] [place] [address] PCP - General Internal Medicine 12/27/22 documented as of this encounter
--- OUTSIDE RECORDS SUMMARY | 2025-01-23 14:42 | XMS_ITS | Encounter Summary ---
Author Organization [employer] Address [address] [facility] 7t [place] [address] Care Team Providers Care Binder Sorter Name Role Phone Lucila Burns MD Primary Care Pro vider Reason for Visit * Reason Onset Date Comments Med Refill 03/05/2023 Encounter Details Date Type Department Care Team ([facility] st Contact Info) Description 03/05/2023 Refill [facility] MEDICINE [address] [place] [address] Lucila Burns MD [address] [place] [address] [place] Social History Tobacco Use Types Packs/Day [...] (Dynacin) 100 MG tablet' Please sent to [facility][id number] [facility] [address] [facility] documented in this encounter Plan of Treatment Not on file documented as of this encounter Visit Diagnoses Diagnosis Rosacea documented in this encounter Additional Health Concerns Assessment Noted Time PHQ-9 Depression Total Score: 10 023 12:43 PM EST documented as of this encounter Care Teams Binder Sorter Relationship Specialty Start Date End Date Lucila Bursn MD [address] [place] [address] PCP - General Internal Medicine 12/27/22 documented as of this encounter
--- OUTSIDE RECORDS SUMMARY | 2025-01-23 14:42 | XMS_ITS | Clinical Summary ---
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 PLAN: 1. Follow up with [facility]: Recommended for follow-up: As needed. 2. Patient [...] Health Integration Plan Internal Follow up with [facility], Patient Self Plan Patient to utilize skills provided in intervention , Patient to reach [facility] team as needed, Comply with medication , Patient to engage in OP therapy , and Patient to reach out to [facility] as needed. Assessment & Plan (02/12/2023 1:31 [...] to change. PLAN: 1. Follow up with [facility]: Recommended for follow-up: As needed. 2. Patient goal is to established OP individual therapy and decrease symptoms. 3. Behavioral Recommendations a. Referral for OP individual therapy b. Follow recommendation from PCP regarding meds and doses. c. Utilize coping techniques discuss during today's session Moderate episode of recurren t major depressive disorder (CMS/HCC) 02/09/2023 Assessment & Plan (03/13/2023 10:36 AM [...] Health Integration Plan Internal Follow up with [facility], Patient Self Plan Patient to utilize skills provided in intervention , Patient to reach [facility] team as needed, Comply with medication , [...] monitor BP Kidney stone 12/21/2021 Acne 05/24/2021 Encounters Date Type Department Care Team Description 12/26/2024 Population Health Risk Score [facility] (C3) Department [address] [place] [address] Provider, Population Health Generic 12/15/2024 9:00 AM EDT Office Visit [facility] [address] [place] [address] Leidy Bland MD Pelvic pain (Primary Dx) 12/15/2024 Travel 12/11/2024 Telephone [facility] MEDICINE [address] [place], [place] [phone] Lucila Burns MD Medication Question 12/11/2024 Telephone [facility] MEDICINE [address] [place], [place] [phone] Lucila Burns MD Nurse Triage 12/09/2024 Telephone [facility] [address] [place], [place] [phone] Lucila Burns MD Nurse Triage from Last 3 Months Immunizations Immunization Administration Dates Next Due Influenza [...] Sign Reading Time Taken Comments Blood Pressure 127/81 12/15/2024 8:50 AM EDT Pulse 86 12/15/2024 8:50 AM EDT Temperature 36.6 C (97.8 F) 12/15/2024 8:50 AM EDT Respiratory Rate 16 12/15/2024 8:50 AM EDT Oxygen Saturation 98% 12/15/2024 8:50 AM EDT Inhaled Oxygen Concentration - - Weight 87.5 kg (193 lb) 12/15/2024 8:50 AM EDT Height 162.6 cm (5' 4 ) 05/28/2023 1:24 PM EST Body Mass Index 33.13 05/28/2023 1:24 PM EST Plan of Treatment Health Maintenance Due Date Last Done Comments Disability Screening 1996 Alcohol/Substance Use Screening 2008 Family Planning (PISQ) 2011 HPV Vaccines (1 - 3-dose series) 2011 Hepatitis B Vaccines (1 of 3 - 19+ 3-dose series) 2015 SDOH Screening 06/23/2023 06/22/2022 Depression Monitoring 08/13/2023 02/12/2023 , 02/12/2023 COVID-19 Vaccine (3 - 2024-2 6 season) 2024 11/07/2020, 10/10/2020 Influenza Vaccine (#1) 2024 01/10/2022 Tobacco Screening 12/15/2025 12/15/2024 Pap Smear 09/07/2027 09/06/2024, 02/03/2021 DTaP/Tdap/Td Vaccines (2 - T d or Tdap) 01/11/2032 01/10/2022 Zoster Vaccines (1 of 2) 2046 RSV Patients and Patients Aged 60 years or older (1 - 1-dose 75+ series) 2071 Hepatitis C Screening Completed 08/11/2022 , 08/05/2020 HIV Screening Completed 09/08/2022, 08/11/2022, 08/26/2020 HIB Vaccines Aged Out No longer eligi [...] 49) Years Aged Out No longer eligible b ased on patient's age to complete this topic RSV under 20 months Aged Out No longe r eligible based on patient's age to complete this topic Rotavirus Vaccines Aged Out No longer eligible based on patient's age to complete this topic Procedures Procedure Name Priority Date/Time Associated Diagnosis Comments POCT , URINE Routine 12/15/2024 9:39 AM EDT Pelvic pain HM PAP/HPV Routine 09/06/2024 HIV 1/2 ANTIGEN/ANTIBODY, FOURTH GENERATION W/RFL Routine 09/08/2022 4:13 PM EDT Palpitations HEPATITIS C AB W/REFL TO HCV RNA, QN, PCR Routine 08/11/2022 1:48 PM EDT Routine screening for STI (sexually transmitted infection) from Last 3 Months or Most Recently Relevant to Health Maintenance Results * POCT , urine manually resulted (12/15/2024 9:39 AM EDT) Preg Test, Ur Negative Negative, Indeterminate, None Detected, Invalid, Specimen unsatisfactory for evaluation, Weakly Positive, 2+ Urine 12/15/2024 9:39 AM EDT Result [facility] Leidy Bland MD POINT OF CARE TEST ENTER/EDIT OR DERABLES Final Result * HM PAP/HPV (09/06/2024) Pap Smear 1. NILM 1. NILM HPV Not Detected Undetected, Indeterminat e, Quantitative , Not Detected Narrative Laurita Cardenas - 09/06/2024 Results in care everywhere Historical Provider HEALTH MAINTENANCE Final Result * HIV-1/2 Antigen and Antibodies, Fourth Generation, with Reflexes (09/08/2022 4:13 PM EDT) HIV Antigen/Antibody, 4th Generation NON-REAC TIVE NON-REAC TIVE [employer] [place] [employer] Comment: HIV-1 antigen and HIV-1/HIV-2 antibodies were [...] purpose. For additional information please refer to http://education.BiggerBoat.ePAR/faq/SGC557 (This link is being provided for informational/ educational purposes only.) The performance of this assay has not been clinically validated in patients less than 2 years old. Blood Venous blood specimen / Unknown 09/08/2022 4:13 PM EDT 09/08/2022 4:14 PM EDT Result [facility] Renetta White DIRECTOR OF RESTAURANT LAB BLOOD ORDERABLES Final Res ult [facility] [address] [place] [address], [place] [address] [employer] [place] [employer] [address] [place] [address] * Hepatitis C Antibody with Reflex to HCV, RNA, Quantitative, Real-Time PCR (08/11/2022 1:48 PM EDT) Hepatitis C Antibody NON-REACT JAYJ AY NON-REACT JAY JAY [employer] [place] MCE-5 Developmentt Index 0.09 <1.00 [employer] Comment: HCV antibody was non-reactive. There is no laboratory evidence of HCV infection. In most cases, no further action is required. However, if recent HCV exposure is suspected, a test for HCV RNA (test code 12668) is suggested. For additional information please refer to http://education.stiQRd/faq/GXR66l2 (This link is being provided for informational/ educational purposes only.) Blood Venous blood specimen / Unknown 08/11/2022 1:48 PM EDT 08/11/2022 1:48 PM EDT Narrative [facility] - 08/15/2022 6:43 PM EDT FASTING:NO FASTING: NO us Lucila Ruiz MD LAB BLOOD ORDERAB LES Final Result [facility] [address], [place] [address] [employer] [address] [place] [address] from Last 3 Months or Most Recently Relevant to Health Maintenance Insurance [employer] [place] [employer] [facility] STANDARD Care Teams Cabin Service Agent Relationship Specialty Start Date End Date Lucila Burns MD [address] [place] [phone] PCP - General Internal Medicine 12/27/22
== END 2025-01-23 13:44 | disposition home or self-care (01) ==
LOC: HO.HMGCX 13:43
PROVIDERS: PCP Student in an Organized Health Care Education/Training Program; Visit Provider Student in an Organized Health Care Education/Training Program
DX: R10.20 Pelvic and perineal pain unspecified side (principal)
CPT/HCPCS: 76830; 76856

== ENCOUNTER → 2025-01-23 13:53 | Outpatient (BNV) | payer MEDICAID, SELFPAY | PROVIDERS: PCP Student in an Organized Health Care Education/Training Program; Visit Provider Radiology Diagnostic Radiology | DX: R10.23 Pelvic and perineal pain bilateral (principal) | CPT/HCPCS: 76830; 76856 ==

== ENCOUNTER 2025-01-27 17:18 | Outpatient (REF) | payer MEDICAID, SELFPAY ==
--- OUTSIDE RECORDS SUMMARY | 2025-01-27 17:40 | XMS_ITS | Encounter Summary ---
Author Organization [email or web address] Address [address] [facility] [address] [place] [address] Care Team Providers Care Cardiac Care Nurse Name Role Phone Lucila Burns MD Primary Care Pro vider Reason for Visit * Reason Comments Vaginal Discharge Encounter Details Date Type Department Care Team ([facility] st Contact Info) Description 01/27/2025 5:40 PM EST Office Visit [facility] [address] [place] [address] [phone] Anastasiya Gottlieb MD [address] [place] [address] Bacterial vaginosis (Primary Dx); Vaginal candidiasis; Vaginal discharge Social History Tobacco Use Types Packs/Day Years [...] is your housing situation today? I have hamletjose perez 01/29/[address] you [...] AM EDT documented as of this encounter Last Filed Vital Signs Vital Sign Reading Time Taken Comments Blood Pressure 134/89 01/27/2025 5:15 PM EST Pulse 87 01/27/2025 5:15 PM EST Temperature 37.3 C (99.1 F) 01/27/2025 5:15 PM EST Respiratory Rate 19 01/27/2025 5:15 PM EST Oxygen Saturation 98% 01/27/2025 5:15 PM EST Inhaled Oxygen Concentration - - Weight 91.7 kg (202 lb 4 oz) 01/27/2025 5:15 PM EST Height 162.6 cm (5' 4 ) 01/27/2025 5:15 PM EST Body Mass Index 34.72 01/27/2025 5:15 PM EST documented in this encounter Progress Notes * Anastasiya Gottlieb MD - 01/27/2025 5:40 PM EST Subjective Rose Bessy Murrieta, age 29 years Vaginal spotting and odor - Light vaginal spotting for 1-2 days prior to visit - Describes spotting as pink in color - Noted underwear developing unpleasant odor quickly Dysuria - Denies pain with urination or pelvic pain. Recent unprotected intercourse - Had unprotected sexual intercourse 2 days prior to visit. Desires . Menstrual history - Last menstrual period on January 10, 2025 Objective Blood pressure 134/89, pulse 87, temperature 99.1 ??F (37.3 ??C), temperature source Oral, resp. rate 19, height 5' 4 (1.626 m), weight 202 lb 4 oz (91.7 kg), last menstrual period 01/10/2025, SpO2 98%, unknown if currently . Physical Exam Genitourinary: General: Normal vulva. Exam position: Lithotomy position. Labia: Right: No rash, tenderness or lesion. Comments: Normal moist mucosa without discharge No suprapubic tenderness. Assessment & Plan Bacterial vaginosis Bacterial vaginosis noted.This is not sexually transmitted so her/his/their partner doesn't need treatment. Rose should avoid douching, as well as scented bath or body products. Wash vulva with water only. Complete medication as prescribed and schedule follow-up if symptoms persist/recur. Abstain from sex during treatment. Vaginal candidiasis -Wet prep with MYRON significant for hyphae and budding yeast. -Candidiasis prevention discussed. Vaginal discharge Orders: Chlamydia/N. Gonorrhoeae RNA, TMA, Vaginal Bacterial Vaginosis Panel clotrimazole (Lotrimin) 1 % cream; Apply topically 2 times daily. metroNIDAZOLE (Metrogel) 0.75 % vaginal gel; Insert one applicator into vagina at bedtime for 7 nights POCT Wet Mount/MYRON This note was drafted using Ambient (AI) technology. The patient/patient's guardian has been informed and has consented to the use of this technology: Yes documented in this encounter Plan of Treatment Scheduled Orders Name Type Priority Associated Diagnoses Orde r Schedule POCT Wet Mount/MYRON Point of Care Testing Routine Vaginal discharge Ordered: 01/27/2025 documented as of this encounter Procedures Procedure Name Priority Date/Time Associated Diagnosis Comments BACTERIAL VAGINOSIS PANEL Routine 01/27/2025 5:18 PM EST Vaginal discharge CHLAMYDIA/N. GONORRHOEAE RNA, TMA, UROGENITAL Routine 01/27/2025 5:18 PM EST Vaginal discharge documented in this encounter Results * Bacterial Vaginosis Panel (01/27/2025 5:18 PM EST) TRICHOMONAS VAGINALIS DETECTION BY PCR NOT DETECTED Not Detect [facility] BACTERIAL VAGINOSIS DETECTION BY PCR NEGATIVE Negative [facility] Comment:The BV organism targ ets of the Xpert Xpress MVP test can becommensal in women; Xpert Xpress MVP positive results forbacterial vaginosis should be considered in conjunction withother clinical and patient information to determine thedisease status. Organisms that are not detected by the XpertXpress MVP test have also been reported to be associatedwith BV and aerobic vaginitis.The Xpert Xpress MVP test performance has not been evaluatedin patients under the age of 14. TOYIN GROUP DETECTION BY PCR NOT DETECTED Not Detect [facility] Toyin glab krusei PCR NOT DETECTED Not Detect [facility] Swab Vaginal structure / Unknown 01/27/2025 5:18 PM EST 01/28/2025 12:23 PM EST Anastasiya Gottlieb MD LAB MICROBIOLOGY - GENERAL ORDERABLES Final Result [facility] [address] [place] [phone] * Chlamydia/N. Gonorrhoeae RNA, TMA, Vaginal (01/27/2025 5:18 PM EST) CT PCR NOT DETECTED Not Detect. [facility] Comment:A not detected test result does not exclude the possibilityof infection because test results can be affected byimproper specimen collection, concurrent antibiotic therapy,or the number of organisms in the specimen which may bebelow the sensitivity of the test. As with many diagnostictests, results from the Xpert CT/NG assay should beinterpreted in conjunction with other laboratory andclinical data available to the clinician.Xpert CT/NG performance has not been evaluated in patientsless than 14 years of age. The assay should not be used forthe evaluationof suspected sexual abuse or for other medico-legalindications. Additional testing is recommended in anycircumstance when false positive or false negative resultscould lead to adverse medical, social or psychologicalconsequences. NG PCR NOT DETECTED Not Detect. [facility] Comment:A not detected test result does not exclude the possibilityof infection because test results can be affected byimproper specimen collection, concurrent antibiotic therapy,or the number of organisms in the specimen which may bebelow the sensitivity of the test. As with many diagnostictests, results from the Xpert CT/NG assay should beinterpreted in conjunction with other laboratory andclinical data available to the clinician.Xpert CT/NG performance has not been evaluated in patientsless than 14 years of age. The assay should not be used forthe evaluationof suspected sexual abuse or for other medico-legalindications. Additional testing is recommended in anycircumstance when false positive or false negative resultscould lead to adverse medical, social or psychologicalconsequences. Swab (Vaginal Swab) 01/27/2025 5:18 PM EST 01/28/2025 12:23 PM EST us Anastasiya Gottlieb MD LAB MICROBIOLOGY - GENERAL ORDERABLES Final Result [facility] [address] [place] [phone] documented in this encounter Visit Diagnoses Diagnosis Bacterial vaginosis- Primary Unspecified vaginitis and vulvovaginitis Vaginal candidiasis Candidiasis of vulva and vagina Vaginal discharge Leukorrhea, not specified as infective documented in this encounter Additional Health Concerns Assessment Noted Time PHQ-9 Depression Total Score: 10 023 12:43 PM EST documented as of this encounter Care Teams Cardiac Care Nurse Relationship Specialty Start Date End Date Lucila Burns MD [address] [place] [phone] PCP - General Internal Medicine 12/27/22 documented as of this encounter
[2025-01-28 13:36] LABS: Bacterial Vaginosis PCR NEGATIVE (Negative); Candida Group PCR NOT DETECTED (Not Detect); Candida glab krusei PCR NOT DETECTED (Not Detect); Trichomonas vaginalis PCR NOT DETECTED (Not Detect)
[2025-01-28 14:09] LABS: CT PCR NOT DETECTED (Not Detect.); NG PCR NOT DETECTED (Not Detect.)
--- OUTSIDE RECORDS SUMMARY | 2025-01-28 15:03 | XMS_ITS | Encounter Summary ---
Author Organization [employer] [facility] Address [address] [facility] 7t [place] [address] Care Team Providers Care Denture Finisher Name Role Phone Otilia Carbone Primary Care Provider Lucila Mendez MD Primary Care Pro vider Encounter Details Date Type Department Care Team (Late st Contact Info) Description 12/19/2022 Orders Only [facility] [address] [place] [address] Provider, Historical, Social History Tobacco Use Types [...] documented as of this encounter Care Teams Denture Finisher Relationship Specialty Start Date End Date Otilia Carbone FNP PCP - General Family Medicine 01/06/21 12/26/22 Lucila Burns MD [address] [place] [phone] PCP - General Internal Medicine 12/27/22 documented as of this encounter
--- OUTSIDE RECORDS SUMMARY | 2025-01-28 15:03 | XMS_ITS | Clinical Summary ---
Author Organization [employer] Address [address] [facility] 7t [place] [address] Care Team Providers Care Internet Marketing Consultant Name Role Phone Lucila Burns MD Primary [...] to affected area 30 g 3 Active hydrOXYzine HCl (Atarax) 10 MG tablet Take [...] of pack 28 tablet 11 4 Active clotrimazole (Lotrimin) 1 % creamIndication s:Vaginal discharge Apply topically 2 times daily. 14 g 1 5 Active metroNIDAZOLE (Metrogel) 0.75 % vaginal gelIndications: Bacterial Vaginosis Insert one applicator into vagina at bedtime for 7 nights 45 g 5 Active Active Problems Problem Noted Date Diagnosed [...] sleep -to start care w me for [employer] apt in no more than 4 to [...] intervention , Patient to reach out to [facility] team as needed, Comply with medication , [...] to change. PLAN: 1. Follow up with [facility]: Recommended for follow-up: As needed. 2. Patient [...] Health Integration Plan Internal Follow up with [facility], Patient Self Plan Patient to utilize skills provided in intervention , Patient to reach out to [facility] team as needed, Comply with medication , Patient to engage in OP therapy , and Patient to reach out to [facility] as needed. Assessment & Plan (02/12/2023 [...] to change. PLAN: 1. Follow up with [facility]: Recommended for follow-up: As needed. 2. Patient [...] intervention , Patient to reach out to [facility] team as needed, Comply with medication , Patient to engage in OP therapy , and Patient to reach out to [facility] as needed. Assessment & Plan (02/12/2023 1:31 [...] BE as needed. At this time Rose Doherty Pruittanabel Murrieta meets criteria for Visit Diagnoses: Problem List Items Addressed This Visit Other Anxiety Problems in relationship with spouse or partner Moderate episode of recurrent major depressive disorder (CMS/HCC) Patient ready to address current needs Yes Strengths include readiness to take action and motivation to change. PLAN: 1. Follow up with [facility]: Recommended for follow-up: As needed. 2. Patient [...] Encounters Date Type Department Care Team Description 01/27/2025 5:40 PM EST Office Visit [facility] [address] [place] [phone] Anastasiya Gottlieb MD Bacterial vaginosis (Primary Dx); Vaginal candidiasis; Vaginal discharge 01/27/2025 Travel 01/27/2025 Telephone [facility] [address] [place] [phone] Lucila Burns MD Nurse Triage 12/26/2024 Population Health Risk Score [facility] ([facility]) Department [address] [place] [address] [phone] Provider, Population Health Generic 12/15/2024 9:00 AM EDT Office Visit [facility] [address] [place] [phone] Leidy Bland MD Pelvic pain (Primary Dx) 12/15/2024 Travel 12/11/2024 Telephone [facility] [address] [place] [phone] Lucila Burns MD Medication Question 12/11/2024 Telephone [facility] [address] [place] [phone] Lucila Burns MD Nurse Triage 12/09/2024 Telephone [facility] [address] [place] [phone] Lucila Burns MD Nurse Triage from Last [...] Mass Index 34.72 01/27/2025 5:15 PM EST Plan of Treatment Health Maintenance Due Date Last Done Comments Alcohol/Substance Use Screening 2008 Family Planning (PISQ) 2011 HPV Vaccines (1 - 3-dose series) 2011 Hepatitis B Vaccines (1 of 3 - 19+ 3-dose series) 2015 SDOH Screening 06/23/2023 06/22/2022 Depression Monitoring 08/13/2023 02/12/2023 , 02/12/2023 COVID-19 Vaccine (3 - 2024-2 6 season) 2024 11/07/2020, 10/10/2020 Influenza Vaccine (#1) 2024 01/10/2022 Disability Screening 01/27/2026 01/27/2025 Tobacco Screening 01/27/2026 01/27/2025 Pap Smear 09/07/2027 09/06/2024, 02/03/2021 DTaP/Tdap/Td Vaccines [...] Routine 01/27/2025 5:18 PM EST Vaginal discharge US PELVIS TRANSVAGINAL Routine 01/23/2025 2:07 PM EDT Pelvic pain POCT , URINE Routine 12/15/2024 9:39 AM EDT Pelvic pain HM PAP/HPV Routine 09/06/2024 HIV 1/2 ANTIGEN/ANTIBODY, FOURTH GENERATION W/RFL Routine 09/08/2022 4:13 PM EDT Palpitations HEPATITIS C AB W/REFL TO HCV RNA, QN, PCR Routine 08/11/2022 1:48 PM EDT Routine screening for STI (sexually transmitted infection) from Last 3 Months or Most Recently Relevant to Health Maintenance Results * Bacterial Vaginosis Panel (01/27/2025 5:18 PM EST) TRICHOMONAS VAGINALIS DETECTION BY PCR NOT DETECTED Not Detect [facility] BACTERIAL VAGINOSIS DETECTION BY PCR NEGATIVE Negative [facility] Comment:The BV organism targ ets of [...] DETECTION BY PCR NOT DETECTED Not Detect [facility] Toyin glab krusei PCR NOT DETECTED Not Detect [facility] Swab Vaginal structure / Unknown 01/27/2025 5:18 PM EST 01/28/2025 12:23 PM EST us Anastasiya Gottlieb MD LAB MICROBIOLOGY - GENERAL ORDERABLES Final Result Performing Organization Address City/[facility] Co de Phone Number [facility] [address] [place] [phone] * Chlamydia/N. Gonorrhoeae RNA, TMA, Vaginal (01/27/2025 5:18 PM EST) CT PCR NOT DETECTED Not Detect. [facility] Comment:A not detected test result does [...] psychologicalconsequences. NG PCR NOT DETECTED Not Detect. [facility] Comment:A not detected test result does [...] LAB MICROBIOLOGY - GENERAL ORDERABLES Final Result [facility] [address] [place] [phone] * US Pelvis Transvaginal (01/23/2025 2:07 PM EDT) Anatomical Region Laterality Modality Pelvis Ultrasound 01/23/2025 2:07 PM EDT Narrative 01/23/2025 3:08 PM EDT [facility] Adult Primary Care [address] [place] [address] [place] [id number] Ultrasound Report Signed Patient: Rose Howard MR#: [id number] 501 : 1995 Acct:[id number] Age/Sex: 29 / F ADM Date: 01/23/25 Loc: HO.HMGCX Attending Dr: Leidy Bland MD Ordering Physician: Leidy Bland MD Date of Service: 01/23/25 Procedure(s): US pelvic and transvaginal Accession Number(s): [id number] cc: Leidy Bland MD Reason for Exam: pelvic pain EXAMINATION: US PELVIS CLINICAL INFORMATION: Pelvic pain. COMPARISON: May 21, 2020. TECHNIQUE: Ultrasound of the pelvis is performed using both transabdominal and transvaginal transducers along with Doppler. Transvaginal imaging is performed due to inadequate visualization transabdominally. FINDINGS: Uterus: The uterus is in retroversion flexion and measures 7 x 4 x 4 cm. Normal appearance of the cervix. The double wall endometrial thickness is 4 mm. No gross masses in the myometrium. Cervix is closed. [employer]: The ovaries are identified with the normal flow distribution on color Doppler interrogation.. No free fluid in the cul-de-sac. No fluid collections. Right ovary measures 4 x 2 x 2 cm. Volume: 10 cc. No solid or cystic lesion. Left ovary measures 4 x 2 x 2 cm. Volume: 7 cc. 1.2 cm dominant follicle. US/US pelvic and transvaginal IMPRESSION: Uterus is in retroversion flexion position. No ovarian torsion. Normal endometrial stripe. No gross uterine fibroid.. Electronically signed by: Demetrio Alexandre MD 01/23/2025 03:06 PM EDT Dictated By: Demetrio Callahan MD Signed By: <Electronically signed by Demetrio Fierro MD in OV> 01/23/25 1506 DD/ 1407 TD/TT: 01/23/25 1435 Straight Truck Driver: Procedure Note Donotuseinterpreter, Image - 01/23/2025 [facility] Adult Primary Care [facility] [place] [address] Ultrasound Report Signed Patient: Alicia Howard#: [id number] 501 : 1995Acct:[id number] Age/Sex: 29 / FADM Date: 01/23/25 Loc: HO.HMGCX Attending Dr: Leidy Bland MD Ordering Physician: Leidy Bland MD Date of Service: 01/23/25 Procedure(s): US pelvic and transvaginal Accession Number(s): [id number] cc: Leidy Bland MD Reason for Exam: pelvic pain EXAMINATION: US PELVIS CLINICAL INFORMATION: Pelvic pain. COMPARISON: May 21, 2020. TECHNIQUE: Ultrasound of the pelvis is performed using both transabdominal and transvaginal transducers along with Doppler. Transvaginal imaging is performed due to inadequate visualization transabdominally. FINDINGS: Uterus: The uterus is in retroversion flexion and measures 7 x 4 x 4 cm. Normal appearance of the cervix. The double wall endometrial thickness is 4 mm. No gross masses in the myometrium. Cervix is closed. [employer]: The ovaries are identified with the normal flow distribution on color Doppler interrogation.. No free fluid in the cul-de-sac. No fluid collections. Right ovary measures 4 x 2 x 2 cm. Volume: 10 cc. No solid or cystic lesion. Left ovary measures 4 x 2 x 2 cm. Volume: 7 cc. 1.2 cm dominant follicle. US/US pelvic and transvaginal IMPRESSION: Uterus is in retroversion flexion position. No ovarian torsion. Normal endometrial stripe. No gross uterine fibroid.. Electronically signed by: Demetrio Alexandre MD 01/23/2025 03:06 PM EDT Dictated By: Demetrio Callahan MD Signed By: <Electronically signed by Demetrio Fierro MDin OV> 01/23/25 1506 DD/ 1407 TD/TT: 01/23/25 1435 Straight Truck Driver: Leidy Bland MD IMG US PROCEDURES Final Result * POCT , urine manually resulted (12/15/2024 9:39 AM EDT) Preg Test, Ur Negative Negative, Indeterminate, None Detected, Invalid, Specimen unsatisfactory for evaluation, Weakly Positive, 2+ Urine 12/15/2024 9:39 AM EDT Leidy Bland MD POINT OF CARE TEST ENTER/EDIT OR DERABLES Final Result * HM PAP/HPV (09/06/2024) Pathologist [facility] Pap Smear 1. NILM 1. NILM HPV Not Detected Undetected, Indeterminat e, Quantitative , Not Detected Narrative Laurita Cardenas - 09/06/2024 Results in care everywhere Historical Provider HEALTH MAINTENANCE Final Result * HIV-1/2 Antigen and Antibodies, Fourth Generation, with Reflexes (09/08/2022 4:13 PM EDT) Pathologist [facility] HIV Antigen/Antibody, 4th Generation NON-REAC TIVE NON-REAC TIVE [facility] Comment: HIV-1 antigen and HIV-1/HIV-2 antibodies were [...] purpose. For additional information please refer to http://education.BoardVantage.Upside/faq/XOU271 (This link is being provided for informational/ educational purposes only.) The performance of this assay has not been clinically validated in patients less than 2 years old. Blood Venous blood specimen / Unknown 09/08/2022 4:13 PM EDT 09/08/2022 4:14 PM EDT Result [facility] Renetta White QA SOFTWARE TESTER LAB BLOOD ORDERABLES Final Res ult Performing Organization Address [facility]/ZIP Co de Phone Number [facility] [address], [facility] [place] [phone] [facility] [address] [place] [phone] * Hepatitis C Antibody with Reflex to HCV, RNA, Quantitative, Real-Time PCR (08/11/2022 1:48 PM EDT) Hepatitis C Antibody NON-REACT JAY JAY NON-REACT JAY JAY [facility] Index 0.09 <1.00 [facility] Comment: HCV antibody was non-reactive. There is no laboratory evidence of HCV infection. In most cases, no further action is required. However, if recent HCV exposure is suspected, a test for HCV RNA (test code 42463) is suggested. For additional information please refer to http://education.Uncovet/faq/YFR06s0 (This link is being provided for informational/ educational purposes only.) Blood Venous blood specimen / Unknown 08/11/2022 1:48 PM EDT 08/11/2022 1:48 PM EDT Narrative [facility] - 08/15/2022 6:43 PM EDT FASTING:NO FASTING: NO Lucila Ruiz MD LAB BLOOD ORDERAB LES Final Result Performing Organization Address [facility]/ZIP Co de Phone Number [facility] [address], [facility] [place] [phone] [facility] [address] [place] [phone] from Last 3 Months or Most Recently Relevant to Health Maintenance Insurance [facility] F[facility] [address] [place] [address] STANDARD Care Teams Internet Marketing Consultant Relationship Specialty Start Date End Date Lucila Burns MD [address] [place] [phone] PCP - General Internal Medicine 12/27/22
--- OUTSIDE RECORDS SUMMARY | 2025-01-28 15:03 | XMS_ITS | Encounter Summary ---
Author Organization [employer] Address [address] [facility] 7 [place] [address] Care Team Providers Care Sports Official Name Role Phone Lucila Burns MD Primary Care Pro vider Reason for Visit * Reason Onset Date Comments Med Refill 03/05/2023 Encounter Details Date Type Department Care Team ([facility] st Contact Info) Description 03/05/2023 Refill [facility] [address] [place] [address] Lucila Burns MD [address] [place] [address] [place] Social History Tobacco Use Types Packs/Day [...] (Dynacin) 100 MG tablet' Please sent to [facility][id number] [facility] [address] [facility] documented in this encounter Plan of Treatment Not on file documented as of this encounter Visit Diagnoses Diagnosis Rosacea documented in this encounter Additional Health Concerns Assessment Noted Time PHQ-9 Depression Total Score: 10 023 12:43 PM EST documented as of this encounter Care Teams Sports Official Relationship Specialty Start Date End Date Lucila Burns MD [address] [place] [phone] PCP - General Internal Medicine 12/27/22 documented as of this encounter
--- OUTSIDE RECORDS SUMMARY | 2025-01-28 15:03 | XMS_ITS | Encounter Summary ---
Author Organization [employer] Address [address] [facility] [address] [place] [address] Care Team Providers Care Mold Presser Name Role Phone Lucila Burns MD Primary Care Pro vider Encounter Details Date Type Department Care Team (Latest Contact Info) Description 01/27/2025 Travel Social History Tobacco Use Types Packs/Day Years [...] documented as of this encounter Care Teams Mold Presser Relationship Specialty Start Date End Date Lucila Burns MD [address] [place] [phone] PCP - General Internal Medicine 12/27/22 documented as of this encounter
--- OUTSIDE RECORDS SUMMARY | 2025-01-28 15:03 | XMS_ITS | Encounter Summary ---
Author Organization [employer] Address 75 [facility] 7 [place] [address] Care Team Providers Care Farm Machine Tender Name Role Phone Lucila Burns MD Primary Care Pro vider Reason for Visit * Reason Onset Date Comments Appointment Request 05/11/2023 Encounter Details Date Type Department Care Team ([facility] st Contact Info) Description 05/11/2023 Telephone [facility] MEDICINE [address] [place] [address] [phone] Lucila Burns MD [address] [place] [address] Appointment Request Social History Tobacco Use Types [...] still needs TP. Please contact pt at [phone] documented in this encounter Plan of Treatment Not on file documented as of this encounter Visit Diagnoses Not on filedocumented in this encounter Additional Health Concerns Assessment Noted Time PHQ-9 Depression Total Score: 10 023 12:43 PM EST documented as of this encounter Care Teams Farm Machine Tender Relationship Specialty Start Date End Date Lucila Burns MD [address] [place] [phone] PCP - General Internal Medicine 12/27/22 documented as of this encounter
--- OUTSIDE RECORDS SUMMARY | 2025-01-28 15:03 | XMS_ITS | Encounter Summary ---
Author Organization [employer] Address 75 [facility] 7 [place] [address] Care Team Providers Care Clinical Research Director Name Role Phone Lucila Burns MD Primary Care Pro vider Reason for Visit * Reason Onset Date Comments Nurse Triage 01/27/2025 Encounter Details Date Type Department Care Team ([facility] st Contact Info) Description 01/27/2025 Telephone [facility] MEDICINE [address] [place] [address] Lucila Burns MD 230 [place] [address] Nurse Triage Social History Tobacco Use Types [...] your housing situation today? I have hamlet perze 01/29/[address] you li [...] encounter Miscellaneous Notes * Telephone Encounter - Lexii Perry RN - 01/27/2025 10:27 AM EST TC returned [place] [id number] who called to report vaginal discharge pt stateswhen she was on vacation in [place] she was told she had a vaginal bacterial infection states the medicine didn't help she has more discharge and odor. Patient reports she did take the medication that shereceived in the [place] however not helpful and would like to be re-evaluated. Pt scheduled to be seen this evening with a female provider Protocol Used: Vaginal Discharge (Adult) Protocol-Based Disposition: See in Office or Video Visit Today Positive Triage Questions: * Mild lower abdominal pain comes and goes (cramps) that lasts > 24 hours * Patient wants to be seen * Bad smelling vaginal discharge * All higher-acuity triage questions were negative Care Advice Discussed: * Reasons To Call Back - Discharge becomes yellow or green - Fever or abdomen pain occur - You become worse * Telephone Encounter - Sharon Rodriguez - 01/27/2025 10:06 AM EST Symptom: Vaginal Symptoms - Not Bleeding Outcome: Schedule an urgent appointment (within 4 hours) or talk to a nurse or provider soon Reason: Foul-smelling vaginal discharge The caller accepted this outcome. Contact pt at [phone] (slovenian) documented in this encounter Plan of Treatment Not on file documented as of this encounter Visit Diagnoses Not on filedocumented in this encounter Additional Health Concerns Assessment Noted Time PHQ-9 Depression Total Score: 10 023 12:43 PM EST documented as of this encounter Care Teams Clinical Research Director Relationship Specialty Start Date End Date Lucila Burns MD [address] [place] [phone] PCP - General Internal Medicine 12/27/22 documented as of this encounter
--- OUTSIDE RECORDS SUMMARY | 2025-01-28 15:03 | XMS_ITS | Encounter Summary ---
Author Organization [employer] Address 75 [facility] 7t [place] [address] Care Team Providers Care Handtools Repairer Name Role Phone Lucila Burns MD Primary Care Pro vider Encounter Details Date Type Department Care Team (Late st Contact Info) Description 03/16/2023 Abstract [facility] MEDICINE [address] [place], [place] [phone] Lucila Burns MD 230 [place], [place] [phone] Social History Tobacco Use Types Packs/Day Years [...] documented as of this encounter Care Teams Handtools Repairer Relationship Specialty Start Date End Date Lucila Burns MD [address] [place] [phone] PCP - General Internal Medicine 12/27/22 documented as of this encounter
--- OUTSIDE RECORDS SUMMARY | 2025-01-28 15:03 | XMS_ITS | Encounter Summary ---
Author Organization [employer] Address 75 [facility] 7 [place] [address] Care Team Providers Care Matrix Repairer Name Role Phone Lucila Burns MD Primary Care Pro vider Reason for Visit * Reason Onset Date Comments Nurse Triage 12/09/2024 Encounter Details Date Type Department Care Team ([facility] st Contact Info) Description 12/09/2024 Telephone [facility] MEDICINE [address] [place], [place] [phone] Lucila Burns MD 230 [place] [address] Nurse Triage Social History Tobacco Use Types [...] 12/09/2024 9:16 AM EDT Date: 11/21 [facility]: [facility] Seen for: Chest pain. Philo odd Symptomatic Yes *if yes message should go to Triage Called pt. Via S bottoming room inspector [phone] Ji. Pt. States that she needs an appt because she gets painin her chest on and off. Pt states she went to [facility] ED on 11/21/24 with no findings. Pt. [...] left arm pain. Pt. Will go to [facility] walk in for further evaluation of sx. I do not see a ED note from [facility] in chart from 11/21/24. I will send [...] ED visit on : Date: 11/21 Hospital: [facility] Seen for: Chest pain. Philo odd Symptomatic Yes *if yes message should go to Triage Patient advised will forward to team nurse for follow up Contact pt at [phone] documented in this encounter Plan of Treatment Not on file documented as of this encounter Visit Diagnoses Not on filedocumented in this encounter Additional Health Concerns Assessment Noted Time PHQ-9 Depression Total Score: 10 023 12:43 PM EST documented as of this encounter Care Teams Matrix Repairer Relationship Specialty Start Date End Date Lucila Burns MD [address] [place] [phone] PCP - General Internal Medicine 12/27/22 documented as of this encounter
== END 2025-01-27 17:19 | disposition home or self-care (01) ==
LOC: HO.HHCLNP 17:18
PROVIDERS: Visit Provider Family Medicine
DX: N89.8 Other specified noninflammatory disorders of vagina (principal); Z20.2 Contact with and (suspected) exposure to infections with a predominantly sexual mode of transmission
CPT/HCPCS: 81515; 87491; 87591

== ENCOUNTER 2025-02-05 14:50 | Outpatient (REF) | payer MEDICAID, SELFPAY ==
--- OUTSIDE RECORDS SUMMARY | 2025-02-05 14:45 | XMS_ITS | Encounter Summary ---
Author Organization [employer] Address [address] [facility] [address] 7t [place] [address] Care Team Providers Care Commercial Roofer Name Role Phone Lucila Burns MD Primary Care Pro vider Reason for Visit * Reason Comments pelvic Encounter Details Date Type Department Care Team ([facility] st Contact Info) Description 02/05/2025 2:45 PM EST Office Visit [facility] MEDICINE [address] [place] [address] Pricila Velez CN [address] [place] [address] Vaginal discharge (Primary Dx); Pelvic pain; Abnormal uterine bleeding (AUB) Social History Tobacco Use Types Packs/Day Years [...] Health Questionnaire-2 Score 5 02/12/2023 Comments No Intention Date Recorded Wants to become (finding) 02/05 Sex and Gender Information Value Date Recorded Sex Assigned at Female 01/23/2022 10:37 AM EDT Legal Sex Female 10:37 AM EDT Gender Identity Female 01/23/2022 10:37 AM EDT Sexual Orientation Don't know 01/23/2022 10 :37 AM EDT documented as of this encounter Last Filed Vital Signs Vital Sign Reading Time Taken Comments Blood Pressure 128/90 02/05/2025 2:38 PM EST Pulse 111 02/05/2025 2:38 PM EST Temperature 36.9 C (98.4 F) 02/05/2025 2:38 PM EST Respiratory Rate 16 02/05/2025 2:38 PM EST Oxygen Saturation 98% 02/05/2025 2:38 PM EST Inhaled Oxygen Concentration - - Weight 91.2 kg (201 lb) 02/05/2025 2:38 PM EST Height - - Body Mass Index 34.5 01/27/2025 5:15 PM EST documented in this encounter Progress Notes * Pricila Velez CNM - 02/05/2025 2:45 PM EST Subjective Patient ID: Rose Murrieta is a 29 y.o. 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 Treated with clotrimazole and MetroGel. Reports persistent vaginal discharge, intermittent pelvic pain. Notes spotting in pastfew days with use of MetroGel. Normal pelvic ultrasound 01/23/2025. Pap NIL 08/2024. History of ectopic and early loss. Referred to [facility] but unable to be seen as visit not covered by insurance. Previously rx'd Slynd. Not currently taking. Would still like to be . Would like prescription. Review of Systems Constitutional: Negative for chills and fever. Genitourinary: Positive for pelvic pain, vaginal bleeding and vaginal discharge. Negative for dyspareunia and dysuria. Objective BP (!) 128/90 (BP Location: Left arm, Patient Position: Sitting, BP Cuff Size: Adult) Pulse (!) 111 Temp 98.4 ??F (36.9 ??C) (Oral) Resp 16 Wt 201 lb (91.2 kg) LMP 01/10/2025 (Exact Date) SpO2 98% BMI 34.50 kg/m?? Physical Exam Accounting Manager Controller present: declines spinning frame cleaner. Constitutional: Appearance: Normal appearance. Genitourinary: General: Normal vulva. Labia: Right: No rash, tenderness, lesion or injury. Left: No rash, tenderness, lesion or injury. Vagina: Normal. No signs of injury and foreign body. No vaginal discharge, erythema, tenderness, bleeding or lesions. Cervix: No cervical motion tenderness, discharge, friability, lesion, erythema, cervical bleeding or eversion. Uterus: Normal. Not enlarged and not tender. Adnexa: Right adnexa normal and left adnexa normal. Right: No mass, tenderness or fullness. Left: No mass, tenderness or fullness. Comments: Clumpy blood tinged discharge Neurological: Mental Status: She is alert. Psychiatric: Mood and Affect: Mood normal. Behavior: Behavior normal. Assessment/Plan Diagnoses and all orders for this visit: Vaginal discharge - Mycoplasma/Ureaplasma Panel - POCT fern test, vaginal fluid manually resulted Likely discharge from intravaginal medication, no obvious vaginitis and recent testing negative. Will send mycoplasma testing as precaution. Pelvic pain Benign pelvic exam today, normal pelvic ultrasound recently. Will check hcg. Abnormal uterine bleeding (AUB) - hCG, Total, Quantitative; Future Serum hcg now, as unable to urinate for test. If positive, will need evaluation for ectopic due to prior history. If not , will observe. Could be slightly early menses. sent in as she is hoping to get . Other orders - Vit-Fe Fumarate-FA ( Plus) 27-1 MG tablet; One tablet by mouth daily documented in this encounter Plan of Treatment Scheduled Orders Name Type Priority Associated Diagnoses Orde r Schedule Mycoplasma/Ureaplasma Panel Microbiology Routine Vaginal discharge Ordered: 02/05/2025 documented as of this encounter Procedures Procedure Name Priority Date/Time Associated Diagnosis Comments POCT WET MOUNT/MYRON Routine 02/05/2025 2: 54 PM EST Vaginal discharge HCG, TOTAL, QN Routine 02/05/2025 2:52 PM EST Abnormal uterine bleeding (AUB) documented in this encounter Results * POCT fern test, vaginal fluid manually resulted (02/05/2025 2:54 PM EST) MYRON Prep Negative Comment:pH 4.5, neg whiff, n eg clue, neg trich, neg wbc. oil droplets noted Vaginal Fluid Vaginal structure / Unknown 02/05/2025 2:54 PM EST Pricila RUSSELL POINT OF CARE TEST ENTER/ EDIT ORDERABLES Final Result * hCG, Total, Quantitative (02/05/2025 2:52 PM EST) HCG Quantitative <2 mIU/mL [facility] Comment:Weeks post LMP Appro ximate hCG(Last Menstrual Period) Range (mIU/ml)3 - 4 weeks 9 - 1304 - 5 weeks 75 - 2,6005 - 6 weeks 850 - 20,8006 - 7 weeks 4000 - 100,2007 - 12 weeks 11,500 - 289,58113 - 16 weeks 18,300 - 137,01740 - 29 weeks (2nd trimester) 1,400 - 53,16850 - 41 weeks (3rd trimester) 940 - 60,000The Kent B- hCG assay is used for the early detection ofpregnancy; it cannot be used to diagnose any conditionunrelated to . If a B-hCG level is not supportedby the clinical evidence, results should be confirmed by analternative method (qualitative urine hCG, for example). Blood Venous blood specimen / Unknown 02/05/2025 2:52 PM EST 02/05/2025 4:07 PM EST us Pricila Rosie CNM LAB BLOOD ORDERABLES Paulette l Result [facility] [address] [place] [phone] [phone] documented in this encounter Visit Diagnoses Diagnosis Vaginal discharge- Primary Leukorrhea, not specified as infective Pelvic pain Abnormal uterine bleeding (AUB) documented in this encounter Additional Health Concerns Assessment Noted Time PHQ-9 Depression Total Score: 10 023 12:43 PM EST documented as of this encounter Care Teams Commercial Roofer Relationship Specialty Start Date End Date Lucila Burns MD [address] [place] [address] PCP - General Internal Medicine 12/27/22 documented as of this encounter
--- OUTSIDE RECORDS SUMMARY | 2025-02-05 18:05 | XMS_ITS | Clinical Summary ---
Author Organization [employer] Address [address] [facility] [address] 7[address] [place] [address] Care Team Providers Care Library Associate Name Role Phone Lucila Burns MD Primary [...] for 7 nights 45 g 5 Active Vit-Fe Fumarate-FA ( Plus) 27-1 MG tablet One tablet by mouth daily 30 tablet 11 5 Active Active Problems Problem Noted Date [...] anxiety and sleep -to start care w n[place] for CREATIVE ART THERAPIST apt in no more than 4 to [...] Health Integration Plan Internal Follow up with [facility], Patient Self Plan Patient to utilize skills provided in intervention , Patient to reach out to [facility] team as needed, Comply with medication [...] to change. PLAN: 1. Follow up with [facility]: Recommended for follow-up: As needed. 2. Patient [...] intervention , Patient to reach out to [facility] team as needed, Comply with medication , Patient to engage in OP BH therapy , and Patient to reach out [...] Health Integration Plan Internal Follow up with [facility], Patient Self Plan Patient to utilize skills provided in intervention , Patient to reach out to [facility] team as needed, Comply with medication , [...] to change. PLAN: 1. Follow up with [facility]: Recommended for follow-up: As needed. 2. Patient [...] Encounters Date Type Department Care Team Description 02/05/2025 2:45 PM EST Office Visit [facility] MEDICINE [address] [place] [phone] Pricila Velez CNM Vaginal discharge (Primary Dx); Pelvic pain; Abnormal uterine bleeding (AUB) 02/04/[address] [address] Lucila Burns MD chart prep 02/04/[address] [phone] Lucila Burns MD Nurse Triage 01/27/2025 5:40 PM EST Office Visit [facility] [address] [place] [phone] Anastasiya Gottlieb MD Bacterial vaginosis (Primary Dx); Vaginal candidiasis; Vaginal discharge 01/27/2025 Travel 01/27/[address] [address] Lucila Burns MD Nurse Triage 12/26/2024 Population Health Risk Score [facility] (C3) Department [address] [phone] Provider, Population Health Generic 12/15/2024 9:00 AM EDT Office Visit [facility] [address] [place] [address] [phone] Leidy Bland MD Pelvic pain (Primary Dx) 12/15/2024 Travel 12/11/[address] [address] Lucila Burns MD Medication Question 12/11/[address] [address] Lucila Burns MD Nurse Triage 12/09/2024 Telephone [facility] MEDICINE [address] [place] [address] Lucila Burns MD Nurse Triage from Last [...] your housing situation today? I have hamlet chris 01/29/[address] you li [...] (201 lb) 02/05/2025 2:38 PM EST Height 162.6 cm (5' 4 ) 01/27/2025 5:15 PM EST Body Mass Index 34.5 01/27/2025 5:15 PM EST Plan of Treatment Health Maintenance Due Date Last Done Comments HPV Vaccines (1 - 3-dose series) 2011 Hepatitis B Vaccines (1 of 3 - 19+ 3-dose series) 2015 SDOH Screening 06/23/2023 06/22/2022 Depression Monitoring 08/13/2023 02/12/2023 , 02/12/2023 COVID-19 Vaccine (3 - 2024-2 6 season) 2024 11/07/2020, 10/10/2020 Influenza Vaccine (#1) 2024 01/10/2022 Disability Screening 01/27/2026 01/27/2025 Tobacco Screening 01/27/2026 01/27/2025 Alcohol/Substance Use Screening 02/05/2026 02/05/2025 Family Planning (PISQ) 02/05/2026 02/05/2025 Pap Smear 09/07/2027 09/06/2024, 02/03/2021 DTaP/Tdap/Td Vaccines [...] 2:52 PM EST Abnormal uterine bleeding (AUB) BACTERIAL VAGINOSIS PANEL Routine 01/27/2025 5:18 PM [...] Relevant to Health Maintenance Results * POCT fern test, vaginal fluid manually resulted (02/05/2025 2:54 PM EST) MYRON Prep Negative Comment:pH 4.5, neg whiff, n eg clue, neg trich, neg wbc. oil droplets noted Vaginal Fluid Vaginal structure / Unknown 02/05/2025 2:54 PM EST [facility] POINT OF CARE TEST ENTER/ EDIT ORDERABLES Final Result * hCG, Total, Quantitative (02/05/2025 2:52 PM EST) HCG Quantitative <2 mIU/mL [facility] Comment:Weeks post LMP Appro ximate hCG(Last Menstrual Period) Range (mIU/ml)3 - 4 weeks 9 - 1304 - 5 weeks 75 - 2,6005 - 6 weeks 850 - 20,8006 - 7 weeks 4000 - 100,2007 - 12 weeks 11,500 - 289,72232 - 16 weeks 18,300 - 137,49965 - 29 weeks (2nd trimester) 1,400 - 53,97198 - 41 weeks (3rd trimester) 940 - [...] 2:52 PM EST 02/05/2025 4:07 PM EST [facility] LAB BLOOD ORDERABLES Paulette l Result [facility] [address] [place] [phone] * Bacterial Vaginosis Panel (01/27/2025 5:18 PM EST) TRICHOMONAS VAGINALIS DETECTION BY PCR NOT DETECTED Not Detect [facility] BACTERIAL VAGINOSIS DETECTION BY PCR NEGATIVE Negative [facility] Comment:The BV organism targ ets [...] DETECTION BY PCR NOT DETECTED Not Detect [facility] Toyin glab krusei PCR NOT DETECTED Not Detect [facility] Swab Vaginal structure / Unknown 01/27/2025 5:18 PM EST 01/28/2025 12:23 PM EST us Anastasiya Gottlieb MD LAB MICROBIOLOGY - GENERAL ORDERABLES Final Result [facility] [address] [place] [phone] * Chlamydia/N. Gonorrhoeae RNA, TMA, Vaginal (01/27/2025 5:18 PM EST) CT PCR NOT DETECTED Not Detect. [facility] Comment:A not detected test result [...] psychologicalconsequences. NG PCR NOT DETECTED Not Detect. [facility] Comment:A not detected test result [...] GENERAL ORDERABLES Final Result Performing Organization Address City/State/[facility] Co de Phone Number [facility] [address] [place] [phone] * US Pelvis Transvaginal (01/23/2025 2:07 PM EDT) Anatomical Region Laterality Modality Pelvis Ultrasound 01/23/2025 2:07 PM EDT Narrative 01/23/2025 3:08 PM EDT [facility] [address] [place] [address] [place] [address] Ultrasound Report Signed Patient: Rose Howard MR#: [id number] : 1995 Acct:[id number] Age/Sex: 29 / F ADM Date: 01/23/25 Loc: HO.HMGCX Attending Dr: Leidy Bland MD Ordering Physician: Leidy Bland MD Date of Service: 01/23/25 Procedure(s): US pelvic and transvaginal Accession Number(s): [id number] cc: Leidy Bland MD Reason for Exam: [...] Demetrio Alexandre MD 01/23/2025 03:06 PM EDT RP Dictated By: Demetrio Callahan MD Signed By: <Electronically signed by Demetrio Fierro MD in OV> 01/23/25 1506 DD/ 1407 TD/TT: 01/23/25 1435 Product Safety Lead: Procedure Note Donotuseinterpreter, Image - 01/23/2025 [facility] [place] [address] Ultrasound Report Signed Patient: Rose Howard#: [id number] : 1995Acct:[id number] Age/Sex: 29 / FADM Date: 01/23/25 Loc: HO.HMGCX Attending Dr: Leidy Bland MD Ordering Physician: Leidy Bland MD Date of Service: 01/23/25 Procedure(s): US pelvic and transvaginal Accession Number(s): [id number] cc: Leidy Bland MD Reason for Exam: [...] Demetrio Alexandre MD 01/23/2025 03:06 PM EDT RP Dictated By: Demetrio Callahan MD Signed By: <Electronically signed by Demetrio Fierro MDin OV> 01/23/25 1506 DD/ 1407 TD/TT: 01/23/25 1435 Product Safety Lead: Leidy Bland MD IMG US PROCEDURES Final [...] Cardenas - 09/06/2024 Results in care everywhere Afshin Landon MD HEALTH MAINTENANCE Final Result * HIV-1/2 Antigen and Antibodies, Fourth Generation, with Reflexes (09/08/2022 4:13 PM EDT) HIV Antigen/Antibody, 4th Generation NON-REAC TIVE NON-REAC TIVE [employer] [place] [employer] Comment: HIV-1 antigen and HIV-1/HIV-2 antibodies were [...] purpose. For additional information please refer to http://Weichaishi.com.Streem/faq/IMS916 (This link is being provided for informational/ educational purposes only.) The performance of this assay has not been clinically validated in patients less than 2 years old. Blood Venous blood specimen / Unknown 09/08/2022 4:13 PM EDT 09/08/2022 4:[address] [facility] LAB BLOOD ORDERABLES Final Res ult [facility] [address], [place] [address] [employer] [address] [place] [phone] * Hepatitis C Antibody with Reflex to HCV, RNA, Quantitative, Real-Time PCR (08/11/2022 1:48 PM EDT) Hepatitis C Antibody NON-REACT JAY JAY NON-REACT JAY JAY [employer] [place] [employer] Index 0.09 <1.00 [employer] Comment: HCV antibody was non-reactive. There is no laboratory evidence of HCV infection. In most cases, no further action is required. However, if recent HCV exposure is suspected, a test for HCV RNA (test code 96304) is suggested. For additional information please refer to http://Weichaishi.com.Streem/faq/IHM65a7 (This link is being provided for informational/ educational purposes only.) Blood Venous blood specimen / Unknown 08/11/2022 1:48 PM EDT 08/11/2022 1:48 PM EDT Narrative [facility] - 08/15/2022 6:43 PM EDT FASTING:NO FASTING: NO Lucila Ruiz MD LAB BLOOD ORDERAB LES Final Result [facility] [address], [place] [phone] [employer] [facility] [address] [place] [phone] from Last 3 Months or Most Recently Relevant to Health Maintenance Insurance [facility] Care Teams Library Associate Relationship Specialty Start Date End Date Lucila Burns MD [address] [place] [phone] PCP - General Internal Medicine 12/27/22
--- OUTSIDE RECORDS SUMMARY | 2025-02-05 18:05 | XMS_ITS | Encounter Summary ---
Author Organization [employer] Address [address] [facility] 7 [place] [address] Care Team Providers Care Endodontic Assistant Name Role Phone Lucila Burns MD Primary Care Pro vider Reason for Visit * Reason Onset Date Comments chart prep 02/04/2025 Encounter Details Date Type Department Care Team ([facility] st Contact Info) Description 02/04/2025 Telephone [facility] MEDICINE [address] [place] [address] Lucila Burns MD [address] [place] [address] chart prep Social History Tobacco Use Types Packs/Day Years [...] encounter Miscellaneous Notes * Telephone Encounter - Baylee Christie MA - 02/04/2025 3:33 PM EST .Chart Prep Labs: not applicable Images: not applicable Vaccines due: Covid Due, Hep B Due, Flu Due, and HPV Referrals: Not Applicable Screenings: LMP Overdue care gaps: Sbirt, SDOH, PHQ9, and GAD7 documented in this encounter Plan of Treatment Not on file documented as of this encounter Visit Diagnoses Not on filedocumented in this encounter Additional Health Concerns Assessment Noted Time PHQ-9 Depression Total Score: 10 023 12:43 PM EST documented as of this encounter Care Teams Endodontic Assistant Relationship Specialty Start Date End Date Lucila Burns MD [address] [place] [phone] PCP - General Internal Medicine 12/27/22 documented as of this encounter
--- OUTSIDE RECORDS SUMMARY | 2025-02-05 18:05 | XMS_ITS | Encounter Summary ---
Author Organization [employer] Address 75 [facility] 7 [place] [address] Care Team Providers Care Call Or Contact Centre Operator Name Role Phone Lucila Burns MD Primary Care Pro vider Reason for Visit * Reason Onset Date Comments Nurse Triage 12/09/2024 Encounter Details Date Type Department Care Team ([facility] st Contact Info) Description 12/09/2024 Telephone [facility] MEDICINE 230 [place], [place] [phone] Lucila Burns MD 230 [place] [address] Nurse Triage Social History Tobacco Use Types [...] 12/09/2024 9:16 AM EDT Date: 11/21 Hospital: [facility] Seen for: Chest pain. [place] odd Symptomatic Yes *if yes message should go to Triage Called pt. Via S american sign language interpreter [phone] Ji. Pt. States that she needs an appt because she gets painin her chest on and off. Pt states she went to [facility] ED on 11/21/24 with no findings. [...] left arm pain. Pt. Will go to [facility] walk in for further evaluation of sx. I do not see a ED note from [facility] in chart from 11/21/24. I will [...] ED visit on : Date: 11/21 Hospital: [facility] Seen for: Chest pain. [place] odd Symptomatic Yes *if yes message should go to Triage Patient advised will forward to team nurse for follow up Contact pt at [phone] documented in this encounter Plan of Treatment Not on file documented as of this encounter Visit Diagnoses Not on filedocumented in this encounter Additional Health Concerns Assessment Noted Time PHQ-9 Depression Total Score: 10 023 12:43 PM EST documented as of this encounter Care Teams Call Or Contact Centre Operator Relationship Specialty Start Date End Date Lucila Burns MD [address] [place] [phone] PCP - General Internal Medicine 12/27/22 documented as of this encounter
--- OUTSIDE RECORDS SUMMARY | 2025-02-05 18:05 | XMS_ITS | Encounter Summary ---
Author Organization [employer] Address 75 [facility] 7 [place] [address] Care Team Providers Care Disposition Clerk Name Role Phone Lucila Burns MD Primary Care Pro vider Reason for Visit * Reason Onset Date Comments Med Refill 03/05/2023 Encounter Details Date Type Department Care Team ([facility] st Contact Info) Description 03/05/2023 Refill [facility] MEDICINE 230 [place] [address] Lucila Burns MD 230 [place] [address] [place] Social History Tobacco Use Types Packs/Day [...] (Dynacin) 100 MG tablet' Please sent to [employer] [facility] #[id number] [facility] [phone] [facility] documented in this encounter Plan of Treatment Not on file documented as of this encounter Visit Diagnoses Diagnosis Rosacea documented in this encounter Additional Health Concerns Assessment Noted Time PHQ-9 Depression Total Score: 10 023 12:43 PM EST documented as of this encounter Care Teams Disposition Clerk Relationship Specialty Start Date End Date Lucila Burns MD [address] [place] [phone] PCP - General Internal Medicine 12/27/22 documented as of this encounter
--- OUTSIDE RECORDS SUMMARY | 2025-02-05 18:05 | XMS_ITS | Encounter Summary ---
Author Organization [employer] Address 75 [facility] 7t [place] [address] Care Team Providers Care Dietary Cook Name Role Phone Lucila Burns MD Primary Care Pro vider Encounter Details Date Type Department Care Team (Late st Contact Info) Description 03/16/2023 Abstract [facility] MEDICINE 230 [place], [place] [phone] Lucila Burns MD 230 [place], [place] [phone] Social History Tobacco Use Types Packs/Day Years [...] documented as of this encounter Care Teams Dietary Cook Relationship Specialty Start Date End Date Lucila Burns MD [address] [place] [phone] PCP - General Internal Medicine 12/27/22 documented as of this encounter
--- OUTSIDE RECORDS SUMMARY | 2025-02-05 18:05 | XMS_ITS | Encounter Summary ---
Author Organization [employer] Address 75 [facility] 7 [place] [address] Care Team Providers Care Fast Food Server Name Role Phone Lucila Burns MD Primary Care Pro vider Reason for Visit * Reason Onset Date Comments Nurse Triage 02/04/2025 Encounter Details Date Type Department Care Team ([facility] st Contact Info) Description 02/04/2025 Telephone [facility] MEDICINE 230 [place] [address] Lucila Burns MD 230 [place] [address] Nurse Triage Social History Tobacco Use Types [...] encounter Miscellaneous Notes * Telephone Encounter - Nancy Prescott RN - 02/04/2025 3:44 PM EST Telephone call to the pt . Pt states she completed a 7 day treatment for BV yesterday . States 3 days into the treatment she started to have thick , hard white vagina drainage . States she is wondering if her partner has something . States she has pelvic pain at times which comes ,and goes . Deniesfever , itchiness , or other symptoms at this time . Appt was given for 02/05/25 at 245pm with Pricila Velez CNM . Protocol Used: Vaginal Discharge (Adult) Protocol-Based Disposition: See in Office or Video Visit Today Positive Triage Questions: * Patient wants to be seen * Symptoms of a yeast infection (i.e., itchy, white discharge, not bad smelling) and not improved > 3 days following Care Advice * All higher-acuity triage questions were negative. * Telephone Encounter - Tarsha Khan - 02/04/2025 12:39 PM EST Symptom: Vaginal Symptoms - Not Bleeding Outcome: Schedule an urgent appointment (within 1 hour) or talk to a nurse or provider soon Reason: Any pelvic pain The caller accepted this outcome. Contact pt at [phone] documented in this encounter Plan of Treatment Not on file documented as of this encounter Visit Diagnoses Not on filedocumented in this encounter Additional Health Concerns Assessment Noted Time PHQ-9 Depression Total Score: 10 023 12:43 PM EST documented as of this encounter Care Teams Fast Food Server Relationship Specialty Start Date End Date Lucila Burns MD [address] [place] [phone] PCP - General Internal Medicine 12/27/22 documented as of this encounter
--- OUTSIDE RECORDS SUMMARY | 2025-02-05 18:05 | XMS_ITS | Encounter Summary ---
Author Organization [facility] Address 75 [facility] 7t [place] [address] Care Team Providers Care Pediatrician/Medical Doctor Name Role Phone Otilia Carbone Primary Care Provider Lucila Mendez MD Primary Care Pro vider Encounter Details Date Type Department Care Team (Late st Contact Info) Description 12/19/2022 Orders Only [facility] MEDICINE 230 [place] [address] Provider, Historical, Social History Tobacco Use Types [...] documented as of this encounter Care Teams Pediatrician/Medical Doctor Relationship Specialty Start Date End Date Otilia Carbone FNP PCP - General Family Medicine 01/06/21 12/26/22 Lucila Burns MD [address] [place] [phone] PCP - General Internal Medicine 12/27/22 documented as of this encounter
--- OUTSIDE RECORDS SUMMARY | 2025-02-05 18:05 | XMS_ITS | Encounter Summary ---
Author Organization [employer] Address [address] [facility] 7 [place] [address] Care Team Providers Care Pusher Runner Name Role Phone Lucila Burns MD Primary Care Pro vider Reason for Visit * Reason Onset Date Comments Appointment Request 05/11/2023 Encounter Details Date Type Department Care Team ([facility] st Contact Info) Description 05/11/2023 Telephone [facility] MEDICINE [address] [place] [address] [phone] Lucila Burns MD 230 [place] [address] Appointment Request Social History Tobacco Use Types [...] still needs TP. Please contact pt at [phone] documented in this encounter Plan of Treatment Not on file documented as of this encounter Visit Diagnoses Not on filedocumented in this encounter Additional Health Concerns Assessment Noted Time PHQ-9 Depression Total Score: 10 023 12:43 PM EST documented as of this encounter Care Teams Pusher Runner Relationship Specialty Start Date End Date Lucila Burns MD [address] [place] [phone] PCP - General Internal Medicine 12/27/22 documented as of this encounter
[2025-02-09 20:29] LABS: Mycoplasma hominis PCR Not Detected (Not Detected)
== END 2025-02-05 14:51 | disposition home or self-care (01) ==
LOC: HO.HHCL 14:50
PROVIDERS: PCP Advanced Practice Midwife; Visit Provider Advanced Practice Midwife
DX: N89.8 Other specified noninflammatory disorders of vagina (principal); N93.9 Abnormal uterine and vaginal bleeding, unspecified
CPT/HCPCS: 36415; 84702; 87563; 87798

== ENCOUNTER 2025-03-11 16:52 | Outpatient (REF) | payer MEDICAID, SELFPAY ==
--- OUTSIDE RECORDS SUMMARY | 2025-03-11 09:20 | XMS_ITS | Encounter Summary ---
Author Organization [employer] Address [address] [facility] [address] 7t [place] [address] Care Team Providers Care Biostatistics Director Name Role Phone Lucila Burns MD Primary Care Pro vider Encounter Details Date Type Department Care Team (Late st Contact Info) Description 03/11/2025 9:20 AM EST Office Visit [facility] 230 [place], [place] [phone] Jennifer Perkins NP [address] [place] [address] Vaginal lesion (Primary Dx); Routine screening for STI (sexually transmitted infection); Elevated blood pressure reading without diagnosis of hypertension; Tachycardia Social History Tobacco Use Types Packs/Day Years [...] Sign Reading Time Taken Comments Blood Pressure 126/80 03/11/2025 9:48 AM EST Pulse 110 03/11/2025 9:14 AM EST Temperature 35.6 C (96.1 F) 03/11/2025 9:14 AM EST Respiratory Rate 26 03/11/2025 9:14 AM EST Oxygen Saturation - - Inhaled Oxygen Concentration - - Weight 93.8 kg (206 lb 12.8 oz) 03/11/2025 9:14 AM EST Height 160 cm (5' 3 ) 03/11/2025 9:14 AM EST Body Mass Index 36.63 03/11/2025 9:14 AM EST documented in this encounter Progress Notes * Jennifer Perkins NP - 03/11/2025 9:20 AM EST Images from the original note were not included. SUBJECTIVE: Rose Murrieta is a 30 y.o. female who presents to the clinic with complaints of: vaginal lesion. Rose Murrieta, age 30, female - Reports painful bums on the right side near clitoris, worsened with cleaning and showering - Bleeding noted when washing the area, uses towels for cleaning - History of similar ingrown bumps after shaving, previously infected, but current lesion describedas different and spreading - Multiple bumps present - History of vaginal discharge prior to visit, but not currently - Reports abnormal, spotty menstrual cycles, with concern about cycle timing and appearance - Sexually active with male partner x5 years; does not use protection. Would like STI testing - Applied clotrimazole cream previously prescribed clotrimazole cream for mycobacterial infection, with two creams used (one for inside, one for outside) - BP noted to be elevated. Denies hx of HTN, but previsou BP elevations - Denies headache, dizziness, chest pain, shor Review of Systems Constitutional: Negative. Negative for chills and fever. Respiratory: Negative for chest tightness and shortness of breath. Cardiovascular: Negative for chest pain. Gastrointestinal: Negative for abdominal pain, constipation, diarrhea and nausea. Genitourinary: Positive for vaginal pain. Negative for dysuria. See HPI Musculoskeletal: Negative for arthralgias, back pain, myalgias and neck pain. Skin: Negative. Negative for rash and wound. Neurological: Negative for weakness, light-headedness and headaches. Psychiatric/Behavioral: Negative for behavioral problems, confusion, decreased concentration and suicidal ideas. Current Medications[1] Allergies[2] OBJECTIVE: Vitals: 03/11/25 0914 03/11/25 0917 03/11/25 0948 BP: (!) 147/99 (!) 162/113 126/80 BP Location: Left arm Right arm Left arm Patient Position: Sitting Sitting Sitting BP Cuff Size: Large adult Large adult Pulse: 110 Resp: 26 Temp: 96.1 ??F (35.6 ??C) TempSrc: Temporal Weight: 206 lb 12.8 oz (93.8 kg) Height: 5' 3 (1.6 m) Physical Exam Vitals reviewed. Exam conducted with a stock control clerk present (MARK Damon). Constitutional: General: She is not in acute distress. Appearance: Normal appearance. She is not ill-appearing. HENT: Head: Normocephalic and atraumatic. Right Ear: External ear normal. Left Ear: External ear normal. Nose: Nose normal. Eyes: General: No scleral icterus. Extraocular Movements: Extraocular movements intact. Pulmonary: Effort: Pulmonary effort is normal. No respiratory distress. Genitourinary: Musculoskeletal: General: Normal range of motion. Cervical back: Normal range of motion. Neurological: General: No focal deficit present. Mental Status: She is alert and oriented to person, place, and time. Gait: Gait normal. Psychiatric: Mood and Affect: Mood normal. Behavior: Behavior normal. - CARDIOVASCULAR: Initially elevated blood pressure, then measured at 126/80 mmHg. - GENITOURINARY: Examination revealed small genital ulcers, not vesicular or clustered. ASSESSMENT/PLAN: Vaginal lesion: - Ulcerative lesions present on the lateral aspect of right inner labia, not vesicular or clustered; does not appear consistent with herpes simplex infection. - Differential include vulvar irritation, folliculitis with ulcerations - Advised avoidance of soap in the affected area and agressive scrubbing with towel. - Recommended use of warm compresses and application of pure coconut oil for local care. - Swabbed lesion for herpes testing per patient's increased concern for herpes. Routine screening for STI (sexually transmitted infection): - Ordered vaginal swab and blood tests for sexually transmitted infections, including BV, GC/Chlamydia, and herpes. Will call with results. Elevated blood pressure: - Elevated blood pressure noted during visit; improved on repeat measurement. - Advised regular exercise and avoidance of excessive salt intake. Tachycardia: - Likely due to anxiety of current medical concerm - Patient is asymptomatic Assessment & Plan Vaginal lesion Orders: Herpes Simplex Virus Culture with Reflex Typing; Future Routine screening for STI (sexually transmitted infection) Orders: Bacterial Vaginosis, Yeast and Trich; Future Chlamydia/N. Gonorrhoeae RNA, TMA, Vagina Hepatitis B Core Antibody, Total; Future Hepatitis B Surface Antibody, Qualitative; Future Hepatitis B surface antigen, EIA; Future HIV-1/2 Antigen and Antibodies, Fourth Generation, with Reflexes; Future Syphilis Screen; Future Elevated blood pressure reading without diagnosis of hypertension Tachycardia Future Appointments Date Time Provider Department Center 05/08/2025 9:15 AM Lucila Ruiz MD [facility] This note was drafted using Ambient (AI) technology. The patient/patient's guardian has been informed and has consented to the use of this technology: Yes [1] Current Outpatient Medications: Vit-Fe Fumarate-FA ( Plus) 27-1 MG tablet, One tablet by mouth daily, Disp: 30 tablet, Rfl: 11 [2] No Known Allergies documented in this encounter Plan of Treatment Upcoming Encounters Date Type Department Care Team (Late st Contact Info) Description 05/08/2025 9:15 AM EST Office Visit [facility] MEDICINE [address] [place] [phone] Lucila Burns MD 230 [place] [address] Scheduled Orders Name Type Priority Associated Diagnoses Orde r Schedule Bacterial Vaginosis, Yeast and Trich Microbiology Routine Routine screening for STI (sexually transmitted infection) Expected: 03/11/2025 (Approximate), Expires: 03/11/2026 Chlamydia/N. Gonorrhoeae RNA, TMA, Vagina Microbiology Routine Routine screening for STI (sexually transmitted infection) Ordered: 03/11/2025 Hepatitis B Core Antibody, Total Lab Routine Routine screening for STI (sexually transmitted infection) Expected: 03/11/2025 (Approximate), Expires: 03/11/2026 Hepatitis B Surface Antibody, Qualitative Lab Routine Routine screening for STI (sexually transmitted infection) Expected: 03/11/2025 (Approximate), Expires: 03/11/2026 Hepatitis B surface antigen, EIA Lab Routine Routine screening for STI (sexually transmitted infection) Expected: 03/11/2025 (Approximate), Expires: 03/11/2026 HIV-1/2 Antigen and Antibodies, Fourth Generation, with Reflexes Lab Routine Routine screening for STI (sexually transmitted infection) Expected: 03/11/2025 (Approximate), Expires: 03/11/2026 Syphilis Screen Lab Routine Routine screening for STI (sexually transmitted infection) Expected: 03/11/2025 (Approximate), Expires: 03/11/2026 Herpes Simplex Virus Culture with Reflex Typing Microbiology Routine Vaginal lesion Expected: 03/11/2025 (Approximate), Expires: 03/11/2026 documented as of this encounter Visit Diagnoses Diagnosis Vaginal lesion- Primary Other specified noninflammatory disorder of vagina Routine screening for STI (sexually transmitted infection) Screening examination for venereal disease Elevated blood pressure reading without diagnosis of hypertension Tachycardia Unspecified tachycardia documented in this encounter Additional Health Concerns Assessment Noted Time PHQ-9 Depression Total Score: 10 023 12:43 PM EST documented as of this encounter Care Teams Biostatistics Director Relationship Specialty Start Date End Date Lucila Burns MD 230 [place] [address] PCP - General Internal Medicine 12/27/22 documented as of this encounter
--- OUTSIDE RECORDS SUMMARY | 2025-03-11 21:04 | XMS_ITS | Encounter Summary ---
Author Organization [employer] Address 75 [facility] 7 [place] [address] Care Team Providers Care [place] Redevelopment Site Manager Name Role Phone Lucila Burns MD Primary Care Pro vider Reason for Visit * Reason Onset Date Comments Nurse Triage 12/09/2024 Encounter Details Date Type Department Care Team ([facility] st Contact Info) Description 12/09/2024 Telephone [facility] MEDICINE 230 [place], [place] [phone] Lucila Burns MD [address] [place] [address] Nurse Triage Social History Tobacco Use Types [...] 12/09/2024 9:16 AM EDT Date: 11/21 Hospital: [facility] Seen for: Chest pain. [place] odd Symptomatic Yes *if yes message should go to Triage Called pt. Via S partner marketing manager [phone] Ji. Pt. States that she needs an appt because she gets painin her chest on and off. Pt states she went to [facility] ED on 11/21/24 with no findings. Pt. [...] left arm pain. Pt. Will go to [facility] walk in for further evaluation of sx. I do not see a ED note from [facility] in chart from 11/21/24. I will send [...] ED visit on : Date: 11/21 Hospital: [facility] Seen for: Chest pain. [place] odd Symptomatic Yes *if yes message should go to Triage Patient advised will forward to team nurse for follow up Contact pt at [phone] documented in this encounter Plan of Treatment Upcoming Encounters Date Type Department Care Team (Late st Contact Info) Description 05/08/2025 9:15 AM EST Office Visit [facility] MEDICINE [address] [place] [phone] Lucila Burns MD [address] [place] [phone] documented as of this encounter Visit Diagnoses Not on filedocumented in this encounter Additional Health Concerns Assessment Noted Time PHQ-9 Depression Total Score: 10 023 12:43 PM EST documented as of this encounter Care Teams [place] Redevelopment Site Manager Relationship Specialty Start Date End Date Lucila Burns MD [address] [place] [address] [phone] PCP - General Internal Medicine 12/27/22 documented as of this encounter
--- OUTSIDE RECORDS SUMMARY | 2025-03-11 21:04 | XMS_ITS | Clinical Summary ---
Author Organization [employer] Address [address] [facility] 7t [place] [address] Care Team Providers Care Vacuum Form Operator Name Role Phone Lucila Burns MD Primary Care Pro vider Allergies No known active allergies Medications * This document contains information received from the source organization and may not represent a complete record from that organization. Vit-Fe Fumarate-FA ( Plus) 27-1 MG tablet One tablet by mouth daily 30 tablet 11 02/06/20 25 Active cholecalcifero l (Vitamin D-3) 50 MCG (1999) capsule Take 1 capsule by mouth at bed time. 08/13/19 025 Discontinued(Me d list cleanup (will not trigger notification to Pharmacy)) lidocaine (Xylocaine) 5 % ointment Apply up to 5 times a day as needed for next week to affected area 30 g 08/18/19 025 Discontinued(Me d list cleanup (will not trigger notification to Pharmacy)) hydrOXYzine HCl (Atarax) 10 MG tablet Take 1 tablet (10 mg) by mouth every 8 (eight) hours if needed for itching or anxiety. 90 tablet 1 02/10/20 23 025 Discontinued(Me d list cleanup (will not trigger notification to Pharmacy)) ibuprofen (IBU) 800 MG tablet 1 tablet every 8 hours with food for pain as needed. 42 tablet 03/15/20 23 025 Discontinued(Me d list cleanup (will not trigger notification to Pharmacy)) acetaminophen (Tylenol Extra Strength) 500 MG tablet 2 tablets (100mg) every 8 hours as needed for pain. May take with ibuprofen. Do not take more than 6 tablets in 24 hours. 42 tablet 12/ 025 Discontinued(Me d list cleanup (will not trigger notification to Pharmacy)) Drospirenone (Slynd) 4 MG tablet Take 1 tablet by mouth in the morning. Start after taking Plan B. Report if no menses by end of pack 28 tablet 11 05/28/19 24 025 Discontinued(Me d list cleanup (will not trigger notification to Pharmacy)) clotrimazole (Lotrimin) 1 % creamIndicatio ns:Vaginal discharge Apply topically 2 times daily. 14 g 1 01/28/20 25 025 Discontinued(Me d list cleanup (will not trigger notification to Pharmacy)) metroNIDAZOLE (Metrogel) 0.75 % vaginal gelIndications :Bacterial Vaginosis Insert one applicator into vagina at bedtime for 7 nights 45 g 01/28/20 025 Discontinued(Me d list cleanup (will not trigger notification to Pharmacy)) phenazopyridin e (Pyridium) 100 MG tablet Take 1 tablet (100 mg) by mouth if needed in the morning, at noon, and at bedtime for bladder spasms for up to 3 days. 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 Assessment & Plan (02/12/2023 1:31 [...] Encounters Date Type Department Care Team Description 03/11/2025 9:20 AM EST Office Visit [facility] [address] [place] [phone] Jennifer Perkins NP Vaginal lesion (Primary Dx); Routine screening for STI (sexually transmitted infection); Elevated blood pressure reading without diagnosis of hypertension; Tachycardia 03/11/2025 Travel 03/03/2025 Telephone [facility] [address] [place] [phone] Lucila Burns MD Nurse Triage 02/18/2025 9:45 AM EST Office Visit [facility] [address] [place] [address] [phone] Pat Camacho MD Hematuria, unspecified type (Primary Dx); Sensation of pressure in bladder area; Dietary counseling; Class 2 obesity due to excess calories without serious comorbidity with body mass index (BMI) of 35.0 to 35.9 in adult; Exercise counseling; History of kidney stones 02/18/2025 Travel 02/06/2025 Results Follow-Up [facility] [address] [place] [phone] Pricila Velez CNM hCG, Total, Quantitative, Mycoplasma/Ureapla sma Panel 02/05/2025 2:45 PM EST Office Visit [address] [address] Pricila Velez CNM Vaginal discharge (Primary Dx); Pelvic pain; Abnormal uterine bleeding (AUB) 02/04/[address] [address] Lucila Burns MD chart prep 02/04/[address] [address] Lucila Burns MD Nurse Triage 01/27/2025 5:40 PM EST Office Visit [facility] [address] [place] [address] Anastasiya Gottlieb MD Bacterial vaginosis (Primary Dx); Vaginal candidiasis; Vaginal discharge 01/27/2025 Travel 01/27/[address] [address] Lucila Burns MD Nurse Triage 12/26/2024 Population Health Risk Score [facility] () Department [address] [place] [phone] Provider, Population Health Generic 12/15/2024 9:00 AM EDT Office Visit [facility] [address] [place] [phone] Leidy Bland MD Pelvic pain (Primary Dx) 12/15/2024 Travel 12/11/[address] [address] Lucila Burns MD Medication Question 12/11/[address] [address] Lucila Burns MD Nurse Triage from Last [...] Intention Date Recorded Wants to become (finding) 02/18 Sex and Gender Information Value Date Recorded [...] 26 03/11/2025 9:14 AM EST Oxygen Saturation 97% 02/18/2025 9:21 AM EST Inhaled Oxygen Concentration - - Weight 93.8 kg (206 lb 12.8 oz) 03/11/2025 9:14 AM EST Height 160 cm (5' 3 ) 03/11/2025 9:14 AM EST Body Mass Index 36.63 03/11/2025 9:14 AM EST Plan of Treatment Upcoming Encounters Date Type Department Care Team (Late st Contact Info) Description 05/08/2025 9:15 AM EST Office Visit [facility] [address] [place] [phone] Lucila Bruns MD [address] [place] [address] Health Maintenance Due Date Last Done Comments HPV Vaccines (1 - 3-dose series) 2011 Hepatitis B Vaccines (1 of 3 - 19+ 3-dose series) 2015 SDOH Screening 06/23/2023 06/22/2022 Depression Monitoring 08/13/2023 02/12/2023 , 02/12/2023 COVID-19 Vaccine (3 - 2024-2 6 season) 2024 11/07/2020, 10/10/2020 Influenza Vaccine (#1) 2024 01/10/2022 Lipid Panel 08/05/2025 08/05/2020 Diabetes: Hemoglobin A1C 09/06/2025 025, 08/26/2020, 08/05/2020 Disability Screening 01/27/2026 01/27/2025 Alcohol/Substance Use Screening 02/05/2026 02/05/2025 Family Planning (PISQ) 02/18/2026 02/18/2025 Tobacco Screening 03/11/2026 03/11/2025 Pap Smear 09/07/2027 09/06/2024, 02/03/2021 DTaP/Tdap/Td Vaccines [...] Name Priority Date/Time Associated Diagnosis Comments POCT URINALYSIS DIPSTICK Routine 02/18/2025 9:54 AM EST Hematuria, unspecified type MYCOPLASMA/UREAPLASMA PANEL Routine 02/05/2025 3:20 PM EST Vaginal discharge POCT WET MOUNT/MYRON Routine 02/05/2025 2: 54 [...] Routine screening for STI (sexually transmitted infection) HEMOGLOBIN A1C Routine 08/26/2020 2:36 PM EDT LIPID PANEL, STANDARD Routine 08/05/2020 11:52 AM EDT from Last 3 Months or Most Recently Relevant to Health Maintenance Results * (ABNORMAL) POCT Urinalysis (02/18/2025 9:54 AM EST) Color, UA Yellow Clarity, UA Clear Glucose, UA Negative Bilirubin, UA Negative Ketones, UA Negative Spec Grav, UA 1.020 Blood, UA Positive(A) Negative, None Detected Comment:trace-intact pH, UA 6.0 Protein, UA Negative Urobilinogen, UA 0.2 Leukocytes, UA Negative Negative, Rare, Trace, 1+ (17), 2+ (35), 3+ (70), Trace (15) Nitrite, UA Negative Negative, None Detected Appearance, UA normal QC Media Lot # [id number] Lot# Expiration Date [id number] Urine (Urine, Random) 02/18/2025 9:54 AM EST Pat Camacho MD POINT OF CARE TEST ENTER/EDIT OR DERABLES Edited Result - Final * Mycoplasma/Ureaplasma??Panel (02/05/2025 3:20 PM EST) Sureswab(R), Mycoplasma Hominis, Real-Time Pcr Not Detected Not Detected [facility] Comment:THIS TEST WAS PERFOR MED AT:[email or web address] [id number] [place] [address]UUNHDYPKATHIE LEON MD,PHD Mycoplasma Genitalium, rRNA,TMA Not Detected Not Detected [facility] Comment:THIS TEST WAS PERFOR MED AT:[email or web address]/[place] [id number] [place] [address]IAJLAKUKATHIE LEON MD,PHD U. Parvum DNA Not Detected Not Detected [facility] U. Urealyticum DNA Not Detected Not Detected [facility] Comment:This test was develo ped and its analyticalperformance characteristics have been determinedby [employer] [place], [place].It has not been cleared or approved by the FDA. Thisassay has been validated pursuant to the CLIAregulations and is used for clinical purposes.THIS TEST WAS PERFORMED AT:[employer]/[place] [id number] [place] [address]JSHUKFCKATHIE LEON MD,PHD Swab (Vaginal Swab) 02/05/2025 3:20 PM EST 02/05/2025 4:21 PM EST Pricila Velez [facility] MICROBIOLOGY - GENERA L ORDERABLES Final Result [facility] [address] [place] [phone] * POCT fern test, vaginal fluid manually resulted (02/05/2025 2:54 PM EST) [facility] Prep Negative Comment:pH 4.5, neg whiff, n eg clue, neg trich, neg wbc. oil droplets noted Vaginal Fluid Vaginal structure / Unknown 02/05/2025 2:54 PM EST Pricila Velez [facility] POINT OF CARE TEST ENTER/ EDIT ORDERABLES Final Result * hCG, Total, Quantitative (02/05/2025 2:52 PM EST) HCG Quantitative <2 mIU/mL [facility] Comment:Weeks post LMP Appro ximate hCG(Last Menstrual Period) Range (mIU/ml)3 - 4 weeks 9 - 1304 - 5 weeks 75 - 2,6005 - 6 weeks 850 - 20,8006 - 7 weeks 4000 - 100,2007 - 12 weeks 11,500 - 289,19307 - 16 weeks 18,300 - 137,05601 - 29 weeks (2nd trimester) 1,400 - 53,26796 - 41 weeks (3rd trimester) 940 - [...] EST 02/05/2025 4:07 PM EST us Pricila Velez [facility] BLOOD ORDERABLES Paulette l Result [facility] [address] [place] [phone] * Bacterial Vaginosis Panel (01/27/2025 5:18 PM EST) TRICHOMONAS VAGINALIS DETECTION BY PCR NOT DETECTED Not Detect [facility] BACTERIAL VAGINOSIS DETECTION BY PCR NEGATIVE Negative [facility] Comment:The BV organism targ ets [...] DETECTION BY PCR NOT DETECTED Not Detect [facility] Toyin glab krusei PCR NOT DETECTED Not Detect [facility] Swab Vaginal structure / Unknown 01/27/2025 5:18 PM EST 01/28/2025 12:23 PM EST Anastasiya Gottlieb MD LAB MICROBIOLOGY - GENERAL ORDERABLES Final Result [facility] [address] [place] [phone] * Chlamydia/N. Gonorrhoeae RNA, TMA, Vaginal (01/27/2025 5:18 PM EST) CT PCR NOT DETECTED Not Detect. [facility] Comment:A not detected test result [...] psychologicalconsequences. NG PCR NOT DETECTED Not Detect. [facility] Comment:A not detected test result [...] LAB MICROBIOLOGY - GENERAL ORDERABLES Final Result [facility] [address] [place] [phone] * US Pelvis Transvaginal (01/23/2025 2:07 PM EDT) Anatomical Region Laterality Modality Pelvis Ultrasound 01/23/2025 2:07 PM EDT Narrative 01/23/2025 3:08 PM EDT [facility] [address] [place] [address] [place] [address] Ultrasound Report Signed Patient: Rose Howard MR#: [id number] : 1995 Acct:[id number] Age/Sex: 29 / F ADM Date: 01/23/25 Loc: HO.HMGCX Attending Dr: Leidy Bland MD Ordering Physician: Leidy Bland MD Date of Service: 01/23/25 Procedure(s): US pelvic and transvaginal Accession Number(s): [id number] cc: Leidy Bland MD Reason for Exam: [...] 01/23/25 1506 DD/ 1407 TD/TT: 01/23/25 1435 Cheese Sprayer: Procedure Note Donotuseinterpreter, Image - 01/23/2025 [facility] [place] [address] Ultrasound Report Signed Patient: Alicia Howard#: [id number] : 1995Acct:[id number] Age/Sex: 29 / FADM Date: 01/23/25 Loc: .HMGX Attending Dr: Leidy Bland MD Ordering Physician: Leidy Bland MD Date of Service: 01/23/25 Procedure(s): US pelvic and transvaginal Accession Number(s): [id number] cc: Leidy Bland MD Reason for Exam: [...] 01/23/25 1506 DD/ 1407 TD/TT: 01/23/25 1435 Cheese Sprayer: Leidy Bland MD IMG US PROCEDURES Final Result * POCT , urine manually resulted (12/15/2024 9:39 AM EDT) Pathologist [facility] Preg Test, Ur Negative Negative, Indeterminate, None Detected, Invalid, Specimen unsatisfactory for evaluation, Weakly Positive, 2+ Urine 12/15/2024 9:39 AM EDT Leidy Bland MD POINT OF CARE TEST ENTER/EDIT OR DERABLES Final Result * HM PAP/HPV (09/06/2024) Pathologist [facility] Pap Smear 1. NILM 1. NILM HPV Not Detected Undetected, Indeterminat e, Quantitative , Not Detected Narrative Laurita Cardenas - 09/06/2024 Results in care everywhere Historical Provider HEALTH MAINTENANCE Final Result * HIV-1/2 Antigen and Antibodies, Fourth Generation, with Reflexes (09/08/2022 4:13 PM EDT) Pathologist [facility] HIV Antigen/Antibody, 4th Generation NON-REAC TIVE NON-REAC TIVE [facility] Comment: HIV-1 antigen and HIV-1/HIV-2 antibodies were [...] purpose. For additional information please refer to http://ContestMachine.RiffTrax/faq/JCO224 (This link is being provided for informational/ educational purposes only.) The performance of this assay has not been clinically validated in patients less than 2 years old. Blood Venous blood specimen / Unknown 09/08/2022 4:13 PM EDT 09/08/2022 4:14 PM EDT Renetta BOP LAB BLOOD ORDERABLES Final Res ult Performing Organization Address [facility] de Phone Number [email or web address] [address] [place] [address], [place] [phone] [employer] [address] [place] [phone] * Hepatitis C Antibody with Reflex to HCV, RNA, Quantitative, Real-Time PCR (08/11/2022 1:48 PM EDT) Hepatitis C Antibody NON-REACT JAY JAY NON-REACT JAY JAY [employer] [place] [employer] Index 0.09 <1.00 [employer] Comment: HCV antibody was non-reactive. There is no laboratory evidence of HCV infection. In most cases, no further action is required. However, if recent HCV exposure is suspected, a test for HCV RNA (test code 43650) is suggested. For additional information please refer to http://ContestMachine.Eli Nutrition.Njini/faq/UEJ40d0 (This link is being provided for informational/ educational purposes only.) Blood Venous blood specimen / Unknown 08/11/2022 1:48 PM EDT 08/11/2022 1:48 PM EDT Narrative [facility] - 08/15/2022 6:43 PM EDT FASTING:NO FASTING: NO Lucila Ruiz MD LAB BLOOD ORDERAB LES Final Result Performing Organization Address [facility] Co de Phone Number [address], [place] [phone] [employer] [address] [place] [address] [place] [phone] * HEMOGLOBIN A1c (08/26/2020 2:36 PM EDT) Hemoglobin A1c 5.2 <5.7 % of total Hgb [facility] Comment: For the purpose of screening for the presence of diabetes: <5.7% Consistent with the absence of diabetes 5.7-6.4% Consistent with increased risk for diabetes (prediabetes) > or =6.5% Consistent with diabetes This assay result is consistent with a decreased risk of diabetes. Currently, no consensus exists regarding use of hemoglobin A1c for diagnosis of diabetes in children. According to [place] Diabetes Association (ADA) guidelines, hemoglobin A1c <7.0% represents optimal control in non- diabetic patients. Different metrics may apply to specific patient populations. Standards of Medical Care in Diabetes(ADA). 08/26/2020 2:36 PM EDT Anastasiya Gottlieb MD LAB BLOOD ORDERABLES Final Result Performing Organization Address City/State/[facility] Co de Phone Number [facility] [address] * LIPID PANEL, STANDARD (08/05/2020 11:52 AM EDT) Chol/HDLC Ratio 2.6 <5.0 (calc) [facility] Cholesterol, Total 181 <200 mg/dL [facility] HDL Cholesterol 70 > OR = 50 mg/dL [facility] LDL Cholesterol 96 mg/dL (calc) [facility] Comment: Reference range: <100 Desirable range <100 mg/dL for primary prevention; <70 mg/dL for patients with CHD or diabetic patients with > or = 2 CHD risk factors. LDL-C is now calculated using the Ousmane-Yuridia calculation, which is a validated novel method providing better accuracy than the Friedewald equation in the estimation of LDL-C. Ousmane COLLINS et al. CARYL. 2013;310(19): 7525-2701 (http://education.[employer].Njini/faq/AKU346) Non-HDL Cholesterol 111 <130 mg/dL (calc) [facility] Comment: For patients with diabetes plus 1 major ASCVD risk factor, treating to a non-HDL-C goal of <100 mg/dL (LDL-C of <70 mg/dL) is considered a therapeutic option. Triglycerides 67 <150 mg/dL [facility] 08/05/2020 11:5 2 AM EDT us Historical Provider LAB BLOOD ORDERABLES Paulette zambrano Result [facility] [address] from Last 3 Months or Most Recently Relevant to Health Maintenance Insurance [facility] C3 Care Teams Vacuum Form Operator Relationship Specialty Start Date End Date Lucila Burns MD [address] [place] [address] [phone] PCP - General Internal Medicine 12/27/22
--- OUTSIDE RECORDS SUMMARY | 2025-03-11 21:04 | XMS_ITS | Encounter Summary ---
Author Organization [employer] Address [address] [facility] 7 [place] [address] Care Team Providers Care Tennis Net Maker Name Role Phone Lucila Burns MD Primary Care Pro vider Reason for Visit * Reason Onset Date Comments Appointment Request 05/11/2023 Encounter Details Date Type Department Care Team ([facility] st Contact Info) Description 05/11/2023 Telephone [facility] [address] [place] [address] [phone] Lucila Burns MD [address] [place] [address] Appointment Request Social History Tobacco Use Types [...] still needs TP. Please contact pt at [phone] documented in this encounter Plan of Treatment Upcoming Encounters Date Type Department Care Team (Late st Contact Info) Description 05/08/2025 9:15 AM EST Office Visit [facility] [address] [place] [address] [phone] Lucila Burns MD [address] [place] [phone] documented as of this encounter Visit Diagnoses Not on filedocumented in this encounter Additional Health Concerns Assessment Noted Time PHQ-9 Depression Total Score: 10 023 12:43 PM EST documented as of this encounter Care Teams Tennis Net Maker Relationship Specialty Start Date End Date Lucila Burns MD [address] [place] [address] [phone] PCP - General Internal Medicine 12/27/22 documented as of this encounter
--- OUTSIDE RECORDS SUMMARY | 2025-03-11 21:04 | XMS_ITS | Encounter Summary ---
Author Organization [facility] [employer] Address [address] [facility] 7t [place] [address] Care Team Providers Care Environmental Protection Geologist Name Role Phone Lucila Burns MD Primary Care Pro vider Encounter Details Date Type Department Care Team (Late st Contact Info) Description 03/16/2023 Abstract [facility] [address] [place], [place] [phone] Lucila Burns MD [address] [place], [place] [phone] Social History Tobacco Use Types Packs/Day Years [...] as of this encounter Plan of Treatment Upcoming Encounters Date Type Department Care Team (Late st Contact Info) Description 05/08/2025 9:15 AM EST Office Visit [facility] [address] [place] [phone] Lucila Burns MD [address] [place] [phone] documented as of this encounter Visit Diagnoses Not on filedocumented in this encounter Additional Health Concerns Assessment Noted Time PHQ-9 Depression Total Score: 10 023 12:43 PM EST documented as of this encounter Care Teams Environmental Protection Geologist Relationship Specialty Start Date End Date Lucila Burns MD [address] [place] [phone] PCP - General Internal Medicine 12/27/22 documented as of this encounter
--- OUTSIDE RECORDS SUMMARY | 2025-03-11 21:04 | XMS_ITS | Encounter Summary ---
Author Organization [employer] Address [address] [facility] [address] 7t [place] [address] Care Team Providers Care Neonatologist Name Role Phone Lucila Burns MD Primary Care Pro vider Encounter Details Date Type Department Care Team (Latest Contact Info) Description 03/11/2025 Travel Social History Tobacco Use Types Packs/Day [...] Description 05/08/2025 9:15 AM EST Office Visit [facility] [address] [place] [address] Lucila Burns MD [address] [place] [phone] documented as of this encounter Visit Diagnoses Not on filedocumented in this encounter Additional Health Concerns Assessment Noted Time PHQ-9 Depression Total Score: 10 023 12:43 PM EST documented as of this encounter Care Teams Neonatologist Relationship Specialty Start Date End Date Lucila Burns MD [address] [place] [phone] PCP - General Internal Medicine 12/27/22 documented as of this encounter
--- OUTSIDE RECORDS SUMMARY | 2025-03-11 21:04 | XMS_ITS | Encounter Summary ---
Author Organization [employer] Address [address] [facility] [address] 7[address] [place] [address] Care Team Providers Care Ferry Hand Name Role Phone Lucila Burns MD Primary Care Pro vider Encounter Details Date Type Department Care Team ([facility] st Contact Info) Description 02/06/2025 Results Follow-Up [facility] [address] [place] [address] Pricila Velez, CNM [address] [place] [address] hCG, Total, Quantitative, Mycoplasma/Ureaplasm a Panel Social History Tobacco Use Types Packs/Day Years [...] is your housing situation today? I have hamelt perez 01/29/[address] you [...] Description 05/08/2025 9:15 AM EST Office Visit [facility] [address] [place] [phone] Lucila Burns MD [address] [place] [phone] documented as of this encounter Visit Diagnoses Not on filedocumented in this encounter Additional Health Concerns Assessment Noted Time PHQ-9 Depression Total Score: 10 023 12:43 PM EST documented as of this encounter Care Teams Ferry Hand Relationship Specialty Start Date End Date Lucila Burns MD [address] [place] [phone] PCP - General Internal Medicine 12/27/22 documented as of this encounter
--- OUTSIDE RECORDS SUMMARY | 2025-03-11 21:05 | XMS_ITS | Encounter Summary ---
Author Organization [employer] [facility] Address [address] [place] [address] [place] [address] Care Team Providers Care Time Broker Name Role Phone Otilia Carbone Aziza COOPERATIVE EXTENSION AGENT Primary Care Provider Lucila Mendez MD Primary Care Pro vider Encounter Details Date Type Department Care Team (Late Contact Info) Description 12/19/2022 Orders Only [facility] MEDICINE [address] [place] [address] [phone] Provider, MD Afshin Social History Tobacco Use Types Packs/Day Years [...] Description 05/08/2025 9:15 AM EST Office Visit [facility] MEDICINE [address] [place] [address] [phone] Lucila Burns MD [address] [place] [address] [phone] documented as of this encounter Procedures Procedure Name Priority Date/Time Associated Diagnosis Comments HM PAP/HPV Routine 02/03/2021 documented in this encounter Results * Hm Pap Smear (02/03/2021) us Historical Provider HEALTH MAINTENANCE Final Result documented in this encounter Visit Diagnoses Not on filedocumented in this encounter Additional Health Concerns Assessment Noted Time PHQ-9 Depression Total Score: 0 06/23/19 4:00 PM EDT documented as of this encounter Care Teams Time Broker Relationship Specialty Start Date End Date Otilia Carbone FNP PCP - General Family Medicine 01/06/21 12/26/22 Lucila Burns MD [address] [place] [phone] PCP - General Internal Medicine 12/27/22 documented as of this encounter
--- OUTSIDE RECORDS SUMMARY | 2025-03-11 21:05 | XMS_ITS | Encounter Summary ---
Author Organization [employer] Address [address] [facility] 7 [place] [address] Care Team Providers Care Industrial Maintenance Technician Name Role Phone Lucila Burns MD Primary Care Pro vider Reason for Visit * Reason Onset Date Comments Med Refill 03/05/2023 Encounter Details Date Type Department Care Team ([facility] st Contact Info) Description 03/05/2023 Refill [facility] MEDICINE [address] [place] [address] Lucila Burns MD [address] [place] [address] [place] Social History Tobacco Use Types Packs/Day [...] (Dynacin) 100 MG tablet' Please sent to [id number] - [place], [place] - [address] [facility] documented in this encounter Plan of Treatment Upcoming Encounters Date Type Department Care Team (Late st Contact Info) Description 05/08/2025 9:15 AM EST Office Visit [facility] [address] [place] [address] Lucila Burns MD [address] [place] [address] documented as of this encounter Visit Diagnoses Diagnosis Rosacea documented in this encounter Additional Health Concerns Assessment Noted Time PHQ-9 Depression Total Score: 10 023 12:43 PM EST documented as of this encounter Care Teams Industrial Maintenance Technician Relationship Specialty Start Date End Date Lucila Burns MD [address] [place] [phone] PCP - General Internal Medicine 12/27/22 documented as of this encounter
[2025-03-12 01:42] LABS: Bacterial Vaginosis PCR NEGATIVE (Negative); Candida Group PCR NOT DETECTED (Not Detect); Candida glab krusei PCR NOT DETECTED (Not Detect); Trichomonas vaginalis PCR NOT DETECTED (Not Detect)
[2025-03-12 02:13] LABS: CT PCR NOT DETECTED (Not Detect.); NG PCR NOT DETECTED (Not Detect.)
== END 2025-03-11 16:53 | disposition home or self-care (01) ==
LOC: HO.HHCLNP 16:52
PROVIDERS: Visit Provider Nurse Practitioner
DX: N89.8 Other specified noninflammatory disorders of vagina (principal); Z20.2 Contact with and (suspected) exposure to infections with a predominantly sexual mode of transmission
CPT/HCPCS: 81515; 87255; 87491; 87591

== ENCOUNTER 2025-03-16 09:58 | Outpatient (REF) | payer MEDICAID, SELFPAY ==
--- OUTSIDE RECORDS SUMMARY | 2025-03-11 09:20 | XMS_ITS | Encounter Summary ---
Author Organization [employer] Address [address] [facility] [address] 7t [place] [address] Care Team Providers Care Medical Lab Director Name Role Phone Lucila Burns MD Primary Care Pro vider Encounter Details Date Type Department Care Team (Late st Contact Info) Description 03/11/2025 9:20 AM EST Office Visit [facility] 230 [place], [place] [phone] Jennifer Perkins NP 230 [place] [address] Vaginal lesion (Primary Dx); Routine screening for [...] Exam Vitals reviewed. Exam conducted with a setter up present (MARK Damon). Constitutional: General: She is [...] Center 05/08/2025 9:15 AM Lucila Ruiz MD [facility] This note was drafted using Ambient (AI) [...] Description 05/08/2025 9:15 AM EST Office Visit [facility] MEDICINE [address] [place] [address] Lucila Burns MD [address] [place] [phone] Scheduled Orders Name Type Priority Associated Diagnoses Orde r Schedule Bacterial Vaginosis, Yeast and Trich Microbiology Routine Routine screening for STI (sexually transmitted infection) Expected: 03/11/2025 (Approximate), Expires: 03/11/2026 Hepatitis B Core Antibody, Total Lab Routine [...] Expires: 03/11/2026 documented as of this encounter Procedures Procedure Name Priority Date/Time Associated Diagnosis Comments CHLAMYDIA/N. GONORRHOEAE RNA, TMA, UROGENITAL Routine 03/11/2025 9:48 AM EST Routine screening for STI (sexually transmitted infection) documented in this encounter Results * Chlamydia/N. Gonorrhoeae RNA, TMA, Vagina (03/11/2025 9:48 AM EST) Pathologist [facility] CT PCR NOT DETECTED Not Detect. [facility] Comment:A not detected test result does [...] psychologicalconsequences. NG PCR NOT DETECTED Not Detect. [facility] Comment:A not detected test result does [...] to adverse medical, social or psychologicalconsequences. Swab Vaginal structure / Unknown 03/11/2025 9:48 AM EST 03/11/2025 4:59 PM EST Jennifer Perkins NP LAB MICROBIOLOGY - [facility] Final Result Performing Organization Address City/State/[facility] Co de Phone Number [facility] [address] [place] [address] [phone] documented in this encounter Visit Diagnoses Diagnosis Vaginal lesion- [...] as of this encounter Care Teams Medical Lab Director Relationship Specialty Start Date End Date Lucila Burns MD [address] [place] [address] PCP - General Internal Medicine 12/27/22 documented as of this encounter
--- OUTSIDE RECORDS SUMMARY | 2025-03-16 09:00 | XMS_ITS | Encounter Summary ---
Author Organization [employer] Address [address] [facility] [address] 7t [place] [address] Care Team Providers Care Healthcare Manager Name Role Phone Lucila Burns MD Primary Care Pro vider Encounter Details Date Type Department Care Team (Late st Contact Info) Description 03/16/2025 9:00 AM EST Office Visit [facility] MEDICINE 230 [place] [address] Emilia Curry FNP 230 [place] [address] Social History Tobacco Use Types Packs/Day Years [...] Sign Reading Time Taken Comments Blood Pressure 122/89 03/16/2025 9:08 AM EST Pulse 87 03/16/2025 9:08 AM EST Temperature 36.7 C (98 F) 03/16/2025 9:08 AM EST Respiratory Rate 22 03/16/2025 9:08 AM EST Oxygen Saturation 98% 03/16/2025 9:08 AM EST Inhaled Oxygen Concentration - - Weight 93.9 kg (207 lb) 03/16/2025 9:08 AM EST Height 160 cm (5' 3 ) 03/16/2025 9:08 AM EST Body Mass Index 36.67 03/16/2025 9:08 AM EST documented in this encounter Plan of Treatment Upcoming Encounters Date Type Department Care Team (Late st Contact Info) Description 05/08/2025 9:15 AM EST Office Visit [facility] MEDICINE [address] [place] [phone] Lucila Burns MD [address] [place] [phone] documented as of this encounter Visit Diagnoses Not on filedocumented in this encounter Additional Health Concerns Assessment Noted Time PHQ-9 Depression Total Score: 10 023 12:43 PM EST documented as of this encounter Care Teams Healthcare Manager Relationship Specialty Start Date End Date Lucila Burns MD [address] [place] [phone] PCP - General Internal Medicine 12/27/22 documented as of this encounter
--- OUTSIDE RECORDS SUMMARY | 2025-03-16 11:53 | XMS_ITS | Encounter Summary ---
Author Organization [employer] Address 75 [facility] 7 [place] [address] Care Team Providers Care Electrical Engineering Draftsperson Name Role Phone Lucila Burns MD Primary Care Pro vider Reason for Visit * Reason Onset Date Comments Nurse Triage 12/09/2024 Encounter Details Date Type Department Care Team ([facility] st Contact Info) Description 12/09/2024 Telephone [facility] MEDICINE 230 [place], [place] [phone] Lucila Burns MD [address] [place] [address] Nurse Triage Social History Tobacco Use Types [...] 12/09/2024 9:16 AM EDT Date: 11/21 [place] [facility] Seen for: Chest pain. Katy odd Symptomatic Yes *if yes message should go to Triage Called pt. Via S manager system [phone] Ji. Pt. States that she needs an appt because she gets painin her chest on and off. Pt states she went to [facility] [place] on 11/21/24 with no findings. Pt. [...] left arm pain. Pt. Will go to [facility] walk in for further evaluation of sx. I do not see a ED note from [facility] in chart from 11/21/24. I will send [...] ED visit on : Date: 11/21 Hospital: [facility] Seen for: Chest pain. Katy odd Symptomatic Yes *if yes message should go to Triage Patient advised will forward to team nurse for follow up Contact pt at [phone] documented in this encounter Plan of Treatment Upcoming Encounters Date Type Department Care Team (Late st Contact Info) Description 05/08/2025 9:15 AM EST Office Visit [facility] MEDICINE [address] [place] [phone] Lucila Burns MD [address] [place] [phone] documented as of this encounter Visit Diagnoses Not on filedocumented in this encounter Additional Health Concerns Assessment Noted Time PHQ-9 Depression Total Score: 10 023 12:43 PM EST documented as of this encounter Care Teams Electrical Engineering Draftsperson Relationship Specialty Start Date End Date Lucila Bunrs MD [address] [place] [address] [phone] PCP - General Internal Medicine 12/27/22 documented as of this encounter
--- OUTSIDE RECORDS SUMMARY | 2025-03-16 11:53 | XMS_ITS | Encounter Summary ---
Author Organization [employer] Address [address] [facility] 7t [place] [address] Care Team Providers Care Hospice Superintendent Name Role Phone Lucila Burns MD Primary Care Pro vider Encounter Details Date Type Department Care Team (Late st Contact Info) Description 03/16/2023 Abstract [facility] MEDICINE 230 [place], [place] [phone] Lucila Burns MD 230 [place], [place] [phone] Social History Tobacco Use Types Packs/Day Years [...] Description 05/08/2025 9:15 AM EST Office Visit [facility] MEDICINE [address] [place] [phone] Lucila Burns MD [address] [place] [phone] documented as of this encounter Visit Diagnoses Not on filedocumented in this encounter Additional Health Concerns Assessment Noted Time PHQ-9 Depression Total Score: 10 023 12:43 PM EST documented as of this encounter Care Teams Hospice Superintendent Relationship Specialty Start Date End Date Lucila Burns MD [address] [place] [phone] PCP - General Internal Medicine 12/27/22 documented as of this encounter
--- OUTSIDE RECORDS SUMMARY | 2025-03-16 11:54 | XMS_ITS | Encounter Summary ---
Author Organization [employer] Address [address] [facility] [address] 7t [place] [address] Care Team Providers Care Boot Lace Cutter Machine Name Role Phone Lucila Burns MD Primary [...] Description 05/08/2025 9:15 AM EST Office Visit [facility] MEDICINE [address] [place] [address] Lucila Burns MD [address] [place] [phone] documented as of this encounter Visit Diagnoses Not on filedocumented in this encounter Additional Health Concerns Assessment Noted Time PHQ-9 Depression Total Score: 10 023 12:43 PM EST documented as of this encounter Care Teams Boot Lace Cutter Machine Relationship Specialty Start Date End Date Lucila Burns MD [address] [place] [phone] PCP - General Internal Medicine 12/27/22 documented as of this encounter
--- OUTSIDE RECORDS SUMMARY | 2025-03-16 11:54 | XMS_ITS | Encounter Summary ---
Author Organization [employer] Address [address] [facility] [address] 7t [place] [address] Care Team Providers Care Rectifying Operator Name Role Phone Lucila Burns MD Primary Care Pro vider Reason for Visit * Reason Onset Date Comments Results 03/13/2025 Encounter Details Date Type Department Care Team ([facility] Contact Info) Description 03/13/2025 Results Follow-Up [facility] MEDICINE [address] [place] [address] Jennifer Perkins NP [address] [place] [address] Bacterial Vaginosis Social History Tobacco Use Types Packs/Day Years [...] encounter Miscellaneous Notes * Telephone Encounter - Marisol Noriega MA - 03/16/2025 10:47 AM EST T/C was placed MA spoke with patient to notify swabs results, pt is okay with results. * Telephone Encounter - Marisol Noriega MA - 03/16/2025 10:47 AM EST ----- Message from Jennifer Perkins sent at 03/13/2025 5:51 PM EST ----- Please inform patient of negative trichomonas, BV, and yeast tests. Thanks ----- Message ----- From: Interface, Lab Results In Sent: 03/12/2025 1:43 AM EST To: Jennifer Perkins NP documented in this encounter Plan of Treatment Upcoming Encounters Date Type Department Care Team ([facility] st Contact Info) Description 05/08/2025 9:15 AM EST Office Visit [facility] MEDICINE [address] [place], [place] [phone] Lucila Burns MD 230 [place], [place] [phone] documented as of this encounter Visit Diagnoses Not on filedocumented in this encounter Additional Health Concerns Assessment Noted Time PHQ-9 Depression Total Score: 10 02/12/ 023 12:43 PM EST documented as of this encounter Care Teams Rectifying Operator Relationship Specialty Start Date End Date Lucila Burns MD [address] [place] [phone] PCP - General Internal Medicine 12/27/22 documented as of this encounter
--- OUTSIDE RECORDS SUMMARY | 2025-03-16 11:54 | XMS_ITS | Encounter Summary ---
Author Organization [employer] Address [address] [facility] [address] 7t [place] [address] Care Team Providers Care Painting Supervisor Name Role Phone Lucila Burns MD Primary Care Pro vider Encounter Details Date Type Department Care Team (Latest Contact Info) Description 03/16/2025 Travel Social History Tobacco Use Types Packs/Day [...] 05/08/2025 9:15 AM EST Office Visit [facility] MEDICINE [address] [place] [address] Lucila Burns MD [address] [place] [phone] documented as of this encounter Visit Diagnoses Not on filedocumented in this encounter Additional Health Concerns Assessment Noted Time PHQ-9 Depression Total Score: 10 023 12:43 PM EST documented as of this encounter Care Teams Painting Supervisor Relationship Specialty Start Date End Date Lucila Burns MD [address] [place] [phone] PCP - General Internal Medicine 12/27/22 documented as of this encounter
--- OUTSIDE RECORDS SUMMARY | 2025-03-16 11:54 | XMS_ITS | Encounter Summary ---
Author Organization [employer] Address [address] [facility] [address] 7t [place] [address] Care Team Providers Care Receiving Dock Checker Name Role Phone Lucila Burns MD Primary Care Pro vider Encounter Details Date Type Department Care Team (Late st Contact Info) Description 03/11/2025 Orders Only [facility] MEDICINE [address] [place] [address] Jennifer Perkins NP [address] [place] [address] Social History Tobacco Use Types Packs/Day Years [...] Description 05/08/2025 9:15 AM EST Office Visit [facility] MEDICINE [address] [place] [address] [phone] Lucila Burns MD 230 [place], [place] [phone] documented as of this encounter Procedures Procedure Name Priority Date/Time Associated Diagnosis Comments BACTERIAL VAGINOSIS PANEL Routine 03/11/2025 9:48 AM EST documented in this encounter Results * Bacterial Vaginosis (03/11/2025 9:48 AM EST) TRICHOMONAS VAGINALIS DETECTION BY PCR NOT DETECTED Not Detect [facility] BACTERIAL VAGINOSIS DETECTION BY PCR NEGATIVE Negative [facility] Comment:The BV organism targ ets [...] DETECTION BY PCR NOT DETECTED Not Detect [facility] Toyin glab krusei PCR NOT DETECTED Not Detect [facility] 03/11/2025 9:48 AM EST 03/11/2025 5:01 PM EST Jennifer Maddie AUTOMOTIVE EXHAUST EMISSIONS TECHNICIAN LAB MICROBIOLOGY - GENERAL MARY NOBLE Final Result [facility] [address] [place] [address] [phone] documented in this encounter Visit Diagnoses Not on filedocumented in this encounter Additional Health Concerns Assessment Noted Time PHQ-9 Depression Total Score: 10 023 12:43 PM EST documented as of this encounter Care Teams Receiving Dock Checker Relationship Specialty Start Date End Date Lucila Burns MD [address] [place] [address] PCP - General Internal Medicine 12/27/22 documented as of this encounter
--- OUTSIDE RECORDS SUMMARY | 2025-03-16 11:54 | XMS_ITS | Encounter Summary ---
Author Organization [employer] Address [address] [facility] [address] 7t [place] [address] Care Team Providers Care Platform Material Handler Manager Name Role Phone Lucila Burns MD Primary Care Pro vider Reason for Visit * Reason Onset Date Comments Results 03/13/2025 Encounter Details Date Type Department Care Team ([facility] Contact Info) Description 03/13/2025 Results Follow-Up [facility] MEDICINE 230 [place] [address] Jennifer Perkins NP [address] [place] [address] Chlamydia/N. Gonorrhoeae RNA, TMA, Vagina Social History Tobacco Use Types Packs/Day Years [...] Encounter - Marisol Noriega MA - 03/16/2025 10:45 AM EST T/C was placed MA spoke with patient to notify swabs results, pt is okay with results. documented in this encounter Plan of Treatment Upcoming Encounters Date Type Department Care Team (Late st Contact Info) Description 05/08/2025 9:15 AM EST Office Visit [facility] MEDICINE [address] [place] [phone] Lucila Burns MD [address] [place] [phone] documented as of this encounter Visit Diagnoses Not on filedocumented in this encounter Additional Health Concerns Assessment Noted Time PHQ-9 Depression Total Score: 10 023 12:43 PM EST documented as of this encounter Care Teams Platform Material Handler Manager Relationship Specialty Start Date End Date Lucila Burns MD [address] [place] [phone] PCP - General Internal Medicine 12/27/22 documented as of this encounter
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
--- OUTSIDE RECORDS SUMMARY | 2025-03-16 11:54 | XMS_ITS | Encounter Summary ---
Author Organization [employer] Address [address] [facility] 7 [place] [address] Care Team Providers Care Cordwood Cutter Name Role Phone Lucila Burns MD Primary Care Pro vider Reason for Visit * Reason Onset Date Comments Med Refill 03/05/2023 Encounter Details Date Type Department Care Team ([facility] st Contact Info) Description 03/05/2023 Refill [facility] [address] [place] [address] Lucila Burns MD [address] [place] [address] Rosad[place]ena Social History Tobacco Use Types Packs/Day [...] (Dynacin) 100 MG tablet' Please sent to [id number] - [place], [place] - [address] [facility] documented in this encounter Plan of Treatment Upcoming Encounters Date Type Department Care Team (Late st Contact Info) Description 05/08/2025 9:15 AM EST Office Visit [facility] [address] [place] [address] Lucila Burns MD [address] [place] [address] documented as of this encounter Visit Diagnoses Diagnosis Rosacea documented in this encounter Additional Health Concerns Assessment Noted Time PHQ-9 Depression Total Score: 10 023 12:43 PM EST documented as of this encounter Care Teams Cordwood Cutter Relationship Specialty Start Date End Date Lucila Burns MD [address] [place] [phone] PCP - General Internal Medicine 12/27/22 documented as of this encounter
--- OUTSIDE RECORDS SUMMARY | 2025-03-16 11:54 | XMS_ITS | Encounter Summary ---
Author Organization [employer] [facility] Address [address] [place] [address] [place] [address] Care Team Providers Care Track Greaser Name Role Phone Otilia Carbone Aziza HAND RIVETER Primary Care Provider Lucila Mendez MD Primary Care Pro vider Encounter Details Date Type Department Care Team (Late Contact Info) Description 12/19/2022 Orders Only [facility] [address] [place] [address] [phone] Provider, MD Afshin Social History Tobacco Use [...] 05/08/2025 9:15 AM EST Office Visit [facility] [address] [place] [address] [phone] Lucila Burns MD [address] [place] [address] [phone] documented as of this encounter Procedures Procedure [...] documented as of this encounter Care Teams Track Greaser Relationship Specialty Start Date End Date Otilia Carbone FNP PCP - General Family Medicine 01/06/21 12/26/22 Lucila Burns MD [address] [place] [phone] PCP - General Internal Medicine 12/27/22 documented as of this encounter
--- OUTSIDE RECORDS SUMMARY | 2025-03-16 11:54 | XMS_ITS | Encounter Summary ---
Author Organization [employer] Address [address] [facility] [address] [place] [address] Care Team Providers Care Electrical Journeyman Name Role Phone Lucila Burns MD Primary Care Pro vider Encounter Details Date Type Department Care Team ([facility] st Contact Info) Description 02/06/2025 Results Follow-Up [facility] [address] [place] [address] Pricila Velez, CNM [address] [place] [address] hCG, Total, Quantitative, Mycoplasma/Ureaplasm a Panel Social [...] Description 05/08/2025 9:15 AM EST Office Visit [facility] [address] [place] [phone] Lucila Burns MD [address] [place] [phone] documented as of this encounter Visit Diagnoses Not on filedocumented in this encounter Additional Health Concerns Assessment Noted Time PHQ-9 Depression Total Score: 10 023 12:43 PM EST documented as of this encounter Care Teams Electrical Journeyman Relationship Specialty Start Date End Date Lucila Burns MD [address] [place] [phone] PCP - General Internal Medicine 12/27/22 documented as of this encounter
--- OUTSIDE RECORDS SUMMARY | 2025-03-16 11:54 | XMS_ITS | Encounter Summary ---
Author Organization [employer] Address [address] [facility] 7 [place] [address] Care Team Providers Care Crochet Beader Name Role Phone Lucila Burns MD Primary Care Pro vider Reason for Visit * Reason Onset Date Comments Appointment Request 05/11/2023 Encounter Details Date Type Department Care Team ([facility] st Contact Info) Description 05/11/2023 Telephone [facility] [address] [place] [address] [phone] Lucila Burns MD [address] [place] [address] Appointment Request Social History Tobacco Use Types [...] still needs TP. Please contact pt at [phone] documented in this encounter Plan of Treatment Upcoming Encounters Date Type Department Care Team (Late st Contact Info) Description 05/08/2025 9:15 AM EST Office Visit [facility] [address] [place] [address] [phone] Lucila Burns MD [address] [place] [phone] documented as of this encounter Visit Diagnoses Not on filedocumented in this encounter Additional Health Concerns Assessment Noted Time PHQ-9 Depression Total Score: 10 023 12:43 PM EST documented as of this encounter Care Teams Crochet Beader Relationship Specialty Start Date End Date Lucila Burns MD [address] [place] [address] [phone] PCP - General Internal Medicine 12/27/22 documented as of this encounter
--- OUTSIDE RECORDS SUMMARY | 2025-03-16 11:54 | XMS_ITS | Encounter Summary ---
Author Organization [employer] Address [address] [facility] [address] [place] [address] Care Team Providers Care Laboratory Administrative Director Name Role Phone Lucila Burns MD Primary Care Pro vider Reason for Visit * Reason Onset Date Comments Results 03/13/2025 Encounter Details Date Type Department Care Team ([facility] Contact Info) Description 03/13/2025 Telephone [facility] [address] [place], [place] [phone] Lucila Burns MD [address] [place] [address] Results Social History Tobacco Use Types Packs/Day Years [...] encounter Miscellaneous Notes * Telephone Encounter - Janice Zuniga RN - 03/13/2025 3:57 PM EST TC placed to pt via [email or web address] professor of business administration (ID#[id number]) regarding request for lab results. Advised pt bacterial vaginosis panel and Gonorrhea/Chlamydia panels negative. Advised awaiting the rest of the lab results. Pt reports pus from the vaginal bumps yesterday. Pt denies pus from site today. Pt denies fever or chills. Advised pt to seek evaluation at urgent care today due to pus from vaginal bumps. Pt advised of [facility] Sunday hours. Pt advised again to seek evaluation at urgent care today. Pt verbalized understanding and denies questions at this time. * Telephone Encounter - Sharon Rodriguez - 03/13/2025 8:55 AM EST TC from pt requesting call back regarding Results. Type of results: Lab orders Date when done: 03/11 Facility: [facility] Contact pt at [phone] documented in this encounter Plan of Treatment Upcoming Encounters Date Type Department Care Team (Late st Contact Info) Description 05/08/2025 9:15 AM EST Office Visit [facility] [address] [place] [phone] Lucila Burns MD [address] [place] [address] documented as of this encounter Visit Diagnoses Not on filedocumented in this encounter Additional Health Concerns Assessment Noted Time PHQ-9 Depression Total Score: 10 023 12:43 PM EST documented as of this encounter Care Teams Laboratory Administrative Director Relationship Specialty Start Date End Date Lucila Burns MD [address] [place] [phone] PCP - General Internal Medicine 12/27/22 documented as of this encounter
[2025-03-17 03:44] LABS: Syphilis Screen Nonreactive (Nonreactive)
[2025-03-17 04:07] LABS: HBS Num1 26.40 mIU/mL (0-7.99); HBc Num1 0.08 S/CO (0.00-0.79); HBsAGNum1 1.56 S/CO (0.00-0.99); HIV Num 1 0.09 S/CO (0.00-0.99); ~Hepatitis B Surface Antibody REACTIVE (Nonreactive)
[2025-03-17 05:13] LABS: HBsAGNum2 Reactive
[2025-03-17 05:14] LABS: HBsAGNum3 Reactive; Hepatitis B Surface Antigen Retest CNFM (Negative)
== END 2025-03-16 09:59 | disposition home or self-care (01) ==
LOC: HO.HHCL 09:58
PROVIDERS: PCP Nurse Practitioner; Visit Provider Nurse Practitioner
DX: Z11.3 Encounter for screening for infections with a predominantly sexual mode of transmission (principal); Z11.59 Encounter for screening for other viral diseases; Z11.4 Encounter for screening for human immunodeficiency virus [HIV]
CPT/HCPCS: 36415; 86704; 86706; 86780; 87340; 87389